=== PATIENT | male | born 1945 | race Caucasian/White ===

== ENCOUNTER → 2017-04-25 11:13 | Outpatient (CLI) | payer MEDICARE, SELFPAY ==
[2017-04-25 13:00] LABS: PSA,Total- Diagnostic 4.68 ng/mL (0.0-4.0)
== END ==
PROVIDERS: Family Provider Family Medicine; PCP Family Medicine; Visit Provider Urology
DX: N40.0 Benign prostatic hyperplasia without lower urinary tract symptoms (principal); R97.20 Elevated prostate specific antigen [PSA]
CPT/HCPCS: 36415; 84153

== ENCOUNTER → 2017-06-17 10:33 | Outpatient (CLI) | payer MEDICARE, SELFPAY ==
[2017-06-17 11:30] LABS: PSA,Total- Diagnostic 4.82 ng/mL (0.0-4.0)
== END ==
PROVIDERS: Family Provider Family Medicine; PCP Family Medicine; Visit Provider Urology
DX: R97.20 Elevated prostate specific antigen [PSA] (principal)
CPT/HCPCS: 36415; 84153

== ENCOUNTER → 2017-07-16 14:35 | Outpatient (CLI) | payer MEDICARE, SELFPAY ==
--- NOTE | 2017-07-16 | PROSBIL_PTH ---
PATIENT: RENY GILLESPIE V LOC: [facility] U#:[id number] AGE/SX: 79/M ROOM: RE07/16/[address]: Dr. Rao Pardo MD : 1945 BED: DIS: SPEC #: [id number] RECD: 07/16/17 14:57 STATUS: DILLON CALOS #: [id number] MARIBEL: 07/16/17 00:[address]: Rao Pardo DEPT: SURGICAL PATHOLOGY RECD BY: Isidro Vallecillo ENTERED: 07/16/17 14:58 SP TYPE: PROST BX RONALDO DR: Dr. Jean Cleaning DO Tissues: A - PROSTATE RIGHT B - PROSTATE RIGHT C - PROSTATE RIGHT D - PROSTATE LEFT E - PROSTATE LEFT F - PROSTATE LEFT Procedures: PROSTATE BX HEADER OPERATION: Prostate biopsy PRE-OP DIAGNOSIS: Elevated PSA TISSUE SUBMITTED: A - Right apex, B - Right mid, C - Right base, D - Left apex, E - Left mid, F - Left base MICROSCOPIC DIAGNOSIS A. Right prostate, apex, core biopsy: Focal atypical small acinar proliferation (FRANCISCO). Focal mild chronic inflammation. See comment. B. Right prostate, mid, core biopsy: Focal high-grade prostatic intraepithelial neoplasia (HGPIN). C. Right prostate, base, core biopsy: Prostatic tissue, negative for malignancy. See comment. D. Left prostate, apex, core biopsy: Prostatic tissue, negative for malignancy. Focal mild chronic inflammation and minimal acute inflammation. E. Left prostate, mid, core biopsy: Prostatic tissue, negative for malignancy. F. Left prostate, base, core biopsy: A minute focus of adenocarcinoma: [place] grade: 3+3=6 Number of cores involved: 1 out of 2 Proportion of tissue involved: ~1% Perineural invasion: Not identified. Greatest tumor length: <1 mm See comment. SJ:rg 07/17/17 COMMENT A, C & F - Immunohistochemistry ([id number]) supports the above diagnosis. Case has been reviewed in consultation with Dr. Ernst who concurs with the above diagnosis. IDC:AM MICROSCOPIC DESCRIPTION Slides are reviewed. GROSS DESCRIPTION A - Received is one container designated prostate, right apex. The specimen consists of three elongated fragments of light claros-white soft tissue measuring 0.5 to 1.5 cm in length and 0.1 cm in diameter. The specimen is totally submitted in one cassette. B - Received is one container designated prostate, right mid. The specimen consists of two elongated fragments of light claros-white soft tissue measuring 1 and 1.5 cm in length and 0.1 cm in diameter. The specimen is totally submitted in one cassette. C - Received is one container designated prostate, right base. The specimen consists of five elongated fragments of light claros-white soft tissue measuring 0.5 to 0.7 cm in length and 0.1 cm in diameter. The specimen is totally submitted in one cassette. D - Received is one container designated prostate, left apex. The specimen consists of two elongated fragments of light claros-white soft tissue measuring 1 and 1.5 cm in length and 0.1 cm in diameter. The specimen is totally submitted in one cassette. E - Received is one container designated prostate, left mid. The specimen consists of two elongated fragments of light claros-white soft tissue measuring 0.5 and 1.5 cm in length and 0.1 cm in diameter. The specimen is totally submitted in one cassette. F - Received is one container designated prostate, left base. The specimen consists of two elongated fragments of light claros-white soft tissue measuring 1 and 1.5 cm in length and 0.1 cm in diameter. The specimen is totally submitted in one cassette. / SJ:rg 07/16/17 TC:0 CPT: G0146
--- NOTE | 2017-07-16 | IMM_PTH ---
PATIENT: RENY GILLESPIE V LOC: [facility] U#:[id number] AGE/SX: 79/M ROOM: RE07/16/[address]: Dr. Rao Pardo MD : 1945 BED: DIS: SPEC #: [id number] RECD: 07/17/17 12:59 STATUS: DILLON RELanre #: [id number] MARIBEL: 07/16/17 00:[address]: Rao Pardo DEPT: IMMUNOHISTOCHEMISTRY RECD BY: Vesta Alan ENTERED: 07/17/17 13:00 SP TYPE: IMMUNO OTHR DR: Dr. Jean Cleaning DO Tissues: A - PROSTATE RIGHT C - PROSTATE RIGHT F - PROSTATE LEFT Procedures: 34BE12 (add) P40 (add) 34BE12 (initial) PHYSICIAN & INSTITUTION [place] [id number] SPECIMEN INFORMATION: Tissue Source: A - Right prostate apex, C - Right prostate base, F - Left prostate base Clinical Info: Elevated PSA Specimen Number: [id number] A, C & F CPT code: 78921, 07419 x5 METHODOLOGY: Deparaffinized sections of prefer/formalin-fixed tissue or PAP/DQ stained slides are incubated with monoclonal/polyclonal antibodies/oligonucleotide probes. Localization is made via biotin free immunoperoxidase method. Appropriate controls are performed and reacted as expected. Results on target cell population are indicated in the following table: RESULTS: ANTIBODY / CLONE RESULT Block A P40 (BC28) negative 34BE12 (34BE12) negative Block C P40 (BC28) positive 34BE12 (34BE12) positive Block F P40 (BC28) negative 34BE12 (34BE12) negative These tests were developed and their performance characteristics determined by [facility]. They may not have been cleared or approved by the U.S. Food and Drug Administration. The FDA has determined that such clearance or approval is not necessary. INTERPRETATION: A. Right prostate, apex, core biopsy: Focal atypical small acinar proliferation (FRANCISCO). C. Right prostate, base, core biopsy: Negative for adenocarcinoma. F. Left prostate, base, core biopsy: A minute focus of adenocarcinoma. SJ:eliz 07/18/17
== END ==
PROVIDERS: Family Provider Family Medicine; Visit Provider Urology
DX: R97.20 Elevated prostate specific antigen [PSA] (principal)
CPT/HCPCS: 88305; 88341; 88342; G0416

== ENCOUNTER → 2017-08-28 11:14 | Outpatient (CLI) | payer MEDICARE, SELFPAY ==
[2017-08-28 11:58] LABS: AST(SGOT) 20 U/L (15-37); Alanine Aminotransfer ALT/SGPT 24 U/L (16-61); Albumin, Serum 3.7 g/dL (3.2-5.0); Alkaline Phosphatase 96 U/L (45-117); Bilirubin, Direct 0.19 mg/dL (0.00-0.30); Cholesterol 122 mg/dL (200); Globulin 3.6 g/dL (2.2-4.2); High Density Lipoprotein 42 mg/dL; Protein, Total 7.3 g/dL (6.4-8.2); Triglycerides 115 mg/dL; Very Low Density Lipoprotein 23 mg/dL (5-40)
== END ==
PROVIDERS: Nurse Practitioner Family; Family Provider Family Medicine; PCP Family Medicine; Visit Provider Internal Medicine Cardiovascular Disease
DX: E78.5 Hyperlipidemia, unspecified (principal); Z79.899 Other long term (current) drug therapy
CPT/HCPCS: 36415; 80061; 80076

== ENCOUNTER → 2017-09-16 12:52 | Outpatient (CLI) | payer MEDICARE, SELFPAY ==
--- NOTE | 2017-09-16 12:55 | ECHOD_ITS ---
Procedure This was a 2D Doppler, Color Flow transthoracic echocardiogram. The study was technically difficult. Exam performed in department. Left Ventricle Normal size and thickness. The estimated ejection fraction is 65 %. Stage 1 diastolic dysfunction. No regional wall motion abnormalities noted. Right Ventricle Normal size and thickness. Normal systolic function. Atria Normal left atrium. Normal right atrium. Normal atrial septum. Mitral Valve The mitral valve is structurally normal. No prolapse or stenosis seen. Tricuspid Valve Normal tricuspid valve. Trivial tricuspid valve insufficiency. Right ventricular systolic pressure estimated to be 24 mmHg. Aortic Valve Trisinus/trileaflet aortic valve. Mild diffuse aortic valve thickening. Mild focal aortic valve thickening. Mild aortic stenosis. Peak aortic valve gradient 29 mmHg. Mean aortic valve gradient 17 mmHg. Trivial aortic valve insufficiency. Pulmonic Valve Normal pulmonic valve. Great Vessels Normal aortic root. Normal arch. Normal inferior vena cava. Inferior vena cava collapse with sniff. Pericardium/Pleural No pericardial effusion. Medication Definity0.4ml given slow IV push to enhance endocardial definition. MMode/2D Measurements & Calculations LVIDd: 4.8 cm IVSd: 0.93 cm LVOT diam: 2.2 cm LVIDs: 2.9 cm LVPWd: 0.95 cm LVOT area: 4.0 cm2 RVDd: 4.0 cm FS: 39.1 % Ao root diam: 3.4 cm LAV(MOD-bp): 37.3 ml EDV(MOD-sp4): 66.5 ml LAV(MOD-bp) Indexed: 18.2 ml/m2 ESV(MOD-sp4): 23.9 ml LAV(MOD-sp2): 46.1 ml EF(MOD-sp4): 64.1 % LAV(MOD-sp4): 28.3 ml SV(MOD-sp4): 42.6 ml LA A4 area: 13.6 cm2 RA A4 area: 13.5 cm2 Doppler Measurements & Calculations MV E max clyde: 45.4 cm/sec Lat Peak E' Clyde: 7.6 cm/sec Med Peak E' Clyde: 6.8 cm/sec MV A max clyde: 66.9 cm/sec E/E' lat: 6.0 E/E' med: 6.6 MV E/A: 0.68 Ao V2 max: 268.0 cm/sec AI max clyde: 266.8 cm/sec LV V1 max: 81.5 cm/sec Ao max P.7 mmHg AI max P.5 mmHg LV V1 max P.7 mmHg Ao V2 mean: 199.8 cm/sec AI dec slope: 111.3 cm/sec2 LV V1 mean P.5 mmHg Ao mean P.9 mmHg AI P1/2t: 702.5 msec LV V1 mean: 59.6 cm/sec Ao V2 VTI: 52.0 cm LV V1 VTI: 17.7 cm YANI(I,D): 1.4 cm2 YANI(V,D): 1.2 cm2 SV(LVOT): 70.3 ml PA V2 max: 74.1 cm/sec TR max clyde: 219.5 cm/sec TR max P.3 mmHg Interpretation Summary The estimated ejection fraction is 65 %. Stage 1 diastolic dysfunction. Trivial tricuspid valve insufficiency. Right ventricular systolic pressure estimated to be 24 mmHg. Trivial aortic valve insufficiency. Mild aortic stenosis. Compared to echo report dated 04/16/2015, no appreciable changes noted. The study was technically difficult. Contrast injection was performed. Ordering Physician: Amrik Maurice Referring Physician: Jean Cleaning Performed By: Marylu Nails, VIKTOR, RVT
== END ==
PROVIDERS: Family Provider Family Medicine; PCP Family Medicine; Visit Provider Internal Medicine Cardiovascular Disease
DX: I35.0 Nonrheumatic aortic (valve) stenosis (principal)
CPT/HCPCS: 93306; Q9957; A4216; C8929

== ENCOUNTER → 2017-12-03 14:26 | Outpatient (CLI) | payer MEDICARE, SELFPAY ==
[2017-12-03 15:22] LABS: PSA,Total- Diagnostic 3.28 ng/mL (0.0-4.0)
== END ==
PROVIDERS: Family Provider Family Medicine; PCP Family Medicine; Visit Provider Urology
DX: C61 Malignant neoplasm of prostate (principal); R97.20 Elevated prostate specific antigen [PSA]
CPT/HCPCS: 36415; 84153

== ENCOUNTER → 2018-04-10 11:18 | Outpatient (CLI) | payer MEDICARE, SELFPAY ==
[2018-04-10 13:18] LABS: AST(SGOT) 21 U/L (15-37); Alanine Aminotransfer ALT/SGPT 29 U/L (16-61); Albumin, Serum 3.8 g/dL (3.2-5.0); Alkaline Phosphatase 86 U/L (45-117); Bilirubin, Direct 0.21 mg/dL (0.00-0.30); Cholesterol 130 mg/dL (200); Globulin 3.2 g/dL (2.2-4.2); High Density Lipoprotein 44 mg/dL; Triglycerides 100 mg/dL; Very Low Density Lipoprotein 20 mg/dL (5-40)
== END ==
PROVIDERS: Family Provider Family Medicine; PCP Family Medicine; Referring Provider Nurse Practitioner Family; Visit Provider Nurse Practitioner Family
DX: E78.5 Hyperlipidemia, unspecified (principal)
CPT/HCPCS: 36415; 80061; 80076

== ENCOUNTER → 2018-06-10 14:37 | Outpatient (CLI) | payer MEDICARE, SELFPAY ==
[2018-04-14 15:24] VITALS: BMI 31.4
[2018-06-10 16:11] LABS: PSA,Total- Diagnostic 2.94 ng/mL (0.0-4.0)
== END ==
PROVIDERS: Family Provider Family Medicine; PCP Family Medicine; Referring Provider Urology; Visit Provider Urology
DX: C61 Malignant neoplasm of prostate (principal)
CPT/HCPCS: 36415; 84153

== ENCOUNTER → 2018-06-19 14:38 | Outpatient (CLI) | payer MEDICARE, SELFPAY ==
[2018-06-19 13:23] VITALS: BMI 30.4
--- NOTE | 2018-06-19 14:42 | RAD_ITS ---
STUDY: X-RAY CHEST REASON FOR EXAM: Male, 72 years old. SOBSShort of Breath/DyspneaS TECHNIQUE: Frontal and lateral views of the chest. COMPARISON: None. FINDINGS: There are interstitial fibrotic changes of the lungs. Calcified granuloma is seen in the posterior segment of right lung upper lobe measures 8mm. There is no demonstrated pleural abnormality. Normal size heart. Normal mediastinum and nora. Normal visualized pulmonary arteries. Normal visualized aortic arch and descending thoracic aorta. Normal visualized thoracic spine. There is degenerative osteoarthritis of the bilateral shoulders. There is no demonstrated abnormality of the visualized soft tissue structures of the upper abdomen. RAD/Chest PA and Lateral IMPRESSION: Degenerative changes, as described above. No demonstrated acute cardiopulmonary process. Electronically Signed: Yohana Edwards, at 14:26 EDT Tel , Service support ,
[2018-06-19 16:14] LABS: Absolute Lymphocyte Count 1.83 X10^3/ul (0.83-4.51); Absolute Neutrophil Count 3.6 X10^3/uL (2.0-7.7); Basophil# 0.01 X10^3/uL; Basophil% 0.2 % (0-1); Eosinophils% 1.6 % (0-5); Hematocrit 46.2 % (40-54); Hemoglobin 14.7 g/dl (13.0-16.5); Lymphocyte # 1.83 X10^3/ul (4.0); Mean Corp Hgb Conc 31.8 g/gl (32-36); Mean Corpuscular Hgb 30.9 pg (27.0-32.0); Mean Corpuscular Volume 97.3 fL (80-94); Mean Platelet Vol. 11.7 fl (6.2-12.0); Monocyte# 0.56 X10^3/uL; Monocyte% 9.2 % (0-10); Neutrophil # 3.58 X10^3/uL (2.7-7.7); Neutrophil % 58.8 % (47-70); Platelet Count 118 K/mm3 (150-450); RBC Distribution Width CV 13.4 % (11.6-14.6); RBC Distribution Width SD 46.7 fl (35.1-43.9); Red Blood Count 4.75 M/mm3 (4.6-6.2); White Blood Count 6.1 K/mm3 (4.4-11.0)
[2018-06-19 16:16] LABS: POSITIVE COUNT NO; POSITIVE DIFFERENTIAL NO; POSITIVE MORPHOLOGY NO
[2018-06-19 16:27] LABS: Prothrombin Time (Protime)PT. 12.7 SECONDS (11.7-14.9)
[2018-06-19 16:39] LABS: Anion Gap 5 (5-15); BUN 19 mg/dL (7-18); BUN/Creat Ratio 18.3 RATIO (10-20); Calcium,Total 8.8 mg/dL (8.5-10.1); Chloride 103 mmol/L (98-107); Creatinine, Serum 1.04 mg/dL (0.70-1.30); EST Glomerular Filtration Rate 74 mL/min (>60); Est Glom Filt Rate - Afr Amer 90 mL/min (>60); Glucose 104 mg/dL (74-106); Potassium 3.9 mmol/L (3.5-5.1); Sodium Level 140 mmol/L (136-145)
== END ==
PROVIDERS: Family Provider Family Medicine; PCP Family Medicine; Referring Provider Internal Medicine Cardiovascular Disease; Visit Provider Internal Medicine Cardiovascular Disease
DX: I25.10 Atherosclerotic heart disease of native coronary artery without angina pectoris (principal); I35.0 Nonrheumatic aortic (valve) stenosis; I10 Essential (primary) hypertension; Z95.5 Presence of coronary angioplasty implant and graft
CPT/HCPCS: 36415; 71046; 80048; 85025; 85610

== ENCOUNTER → 2018-07-01 12:24 | Outpatient (CLI) | payer MEDICARE, SELFPAY ==
[2018-06-19 13:23] VITALS: BMI 30.4
--- NOTE | 2018-07-01 15:19 | PFTCOMP_ITS ---
COMPLETE PULMONARY FUNCTION TEST INTERPRETATION Brief HPI: Patient is a 72 year old male, currently under the care of Dr. Maurice, who presents to [facility] for complete pulmonary function tests secondary to diagnosis of dyspnea. Respiratory therapist reports good effort and reproducible results. Interpretation: Forced expiration spirometry shows a moderately-severe large airways obstructive ventilatory defect with an FEV1 of 58% predicted. There is no significant bronchodilator response by strict ATS criteria. Spirograms are of good quality and plateau slowly, indicating slowly emptying areas of the lungs. The respiratory flow volume loop shows decreased expiratory flow rates at all lung volumes consistent with airway obstruction. Lung volumes by body plethysmography show a decreased total lung capacity at 5.09 L, 82% predicted. All other lung volumes are reduced symmetrically. Diffusion capacity by carbon monoxide is normal at 74% predicted. The airway resistance is elevated. No previous pulmonary function tests were available for review. Impression: Moderately severe mixed ventilatory defect with no significant response to bronchodilators and relatively preserved diffusion capacity.
== END ==
PROVIDERS: Family Provider Family Medicine; PCP Family Medicine; Referring Provider Internal Medicine Cardiovascular Disease; Visit Provider Internal Medicine Cardiovascular Disease
DX: R06.00 Dyspnea, unspecified (principal)
CPT/HCPCS: 94060; 94726; 94729

== ENCOUNTER 2018-07-03 08:17 | Day surgery (SDC) | payer MEDICARE, SELFPAY ==
[2018-06-19 13:23] VITALS: BMI 30.4
[2018-07-02 08:36] VITALS: BMI 30.4
[2018-07-03 10:51] LABS: Blood Gas Specimen Type VEN; VBG BASE EXCESS 1 mmol/L (-1.0-3.5); VBG Bicarbonate 26 mmol/L (22-26); VBG Oxygen Content 28 mmol/L (23-33); VBG PO2 38 mmHg (25-40); VBG SO2 68 % (50-70); VBG pCO2 47.2 mmHg (41-51); VBG pH 7.35 (7.32-7.42)
[2018-07-03 10:51] LABS: Blood Gas Specimen Type VEN; VBG BASE EXCESS 0 mmol/L (-1.0-3.5); VBG Bicarbonate 26 mmol/L (22-26); VBG Oxygen Content 27 mmol/L (23-33); VBG PO2 36 mmHg (25-40); VBG SO2 66 % (50-70); VBG pCO2 46.4 mmHg (41-51); VBG pH 7.35 (7.32-7.42)
[2018-07-03 10:51] LABS: Base Excess -4 mmol/L (-2 to +2); Bicarbonate 22.4 mmol/L (22-26); Blood Gas Specimen Type ART; PO2 85 mmHG (75-100); SO2 95 % (95-99); Total Carbon Dioxide 24 mmol/L; pCO2 44.7 mmHg (35-45); pH 7.31 (7.35-7.45)
--- NOTE | 2018-07-03 10:57 | CL.D_ITS ---
Patient Name: RENY GILLESPIE V Study Date: 07/03/2018 Performing: Amrik Maurice MD Ht: 68.89 inches 175 cm : 1945 Wt: 205.03 lbs 93 kg Age: 72 Gender: male BSA: 2.09 PROCEDURE(S) PERFORMED NG00-KZF/LHC/COR/LV CLINICAL PROFILE AND INDICATIONS Indications: Stable Known CAD, LV Dysfunction Heart Failure: NYHA Class: 2, Newly Diagnosed: No, Heart Failure Type: Systolic Stress/Imaging Stress/Image Study Performed: No Angina Classification Anginal Classification w/in 2 Weeks: No symptoms CAD Presentations: Other: Worsening dyspnea on exertion Comorbidities/Risk Factors: Hypertension Dyslipidemia Prior CHF Chronic Lung Disease CONCLUSIONS Segmented LV systolic dysfunction- Mild LVEF: by LV gram 55 % Elevated Left Ventricular End Diastolic Pressure Non obstructive coronary arteries Single vessel CAD of the mid RCA (occluded) The patient has normal pulmonary hemodynamics. RECOMMENDATIONS Risk factor modification ASA Indefinitely Management as per referring Obstetrics Technician Await PFTS; LM does not appear to have significant enough stenosis to warrant FFR or IVUS, let alone CABG. DESCRIPTION OF PROCEDURE The patient arrived to the procedure lab. The risks and benefits of the procedure as well as a full d escription of our services here and current unavailability of surgical backup were fully explained to the patient and/or their significant other prior to the catheterization. The Timeout was completed, verifying the correct patient and procedure. The patient's procedural site was prepped and draped in the usual fashion. Local anesthetic was given subcutaneously to right groin region with Lidocaine 2%. Using a modified Seldinger technique, arterial access was obtained via the right femoral artery, a 4 Fr sheath was inserted Venous access was obtained via the right femoral vein, a 7Fr sheath was insert ed. A 7Fr thermal dilution catheter was inserted and right heart pressures were recorded, it was then advanced to PA position for cardiac outputs. Thermal dilution cardiac outputs were then recorded. O2 saturations were then obtained. Left Ventriculography was performed in [place] projection using a 4 Fr. Pigtail catheter. LV to AO pullback pressures were then recorded. Simultaneous pressure s were then recorded. The Thermal dilution catheter was then removed. Left Coronary Artery selective angiography was performed in multiple views using a 4 Fr. JL5 catheter. Right Coronary Artery selecti ve angiography was then performed in multiple views using a 4 Fr. 3DRC catheter.The arterial sheath w as pulled and manual compression applied until hemostasis is achieved. CORONARY ANGIOGRAPHY DOMINANCE: Co- Dominant LEFT HEART ASSESSMENT Left Ventricular Ejection Fraction: by LV Gram 55 % Inferior Basal Hypokinesis - Mild Depressed Left Ventricular systolic function LVEDP: 14 mmHg Elevated Left Ventricular End Diastolic Pressure RIGHT HEART ASSESSMENT Thermal CO: 6.08 Thermal CI: 2.91 PW: 7/7 7 PA: 19 RV: 26/3 7 RA: 6/5 4 PVR: 158 SVR: 1053 Right Heart pressures - normal LEFT MAIN: Moderate ectasia, distal 30%. LEFT ANTERIOR DECENDING ARTERY: PROX LAD: Mild luminal irregularities less than 30% MID LAD: Moderate luminal irregularities up to 50% CIRCUMFLEX ARTERY: Mild luminal irregularities less than 30% PROX CIRC: Moderate calcification RIGHT CORONARY ARTERY: MID RCA: is occluded COLLATERAL FLOW: Collateral flow from Left to Right COMPLICATIONS No Complications PROCEDURE MEDICATIONS Oxygen: 2 L/min via nasal cannula Benadryl 25 mg IV @ 07/03/2018 10:01:14 Solu-cortef 100 mg IV 07/03/2018 10:00:59 SUMMARY OF HEMODYNAMIC DATA Time AIR REST ECG 08:33:21 RA 6/5 (4) SV 10:21:18 RV 26/3, 7 10:21:31 PA (19) PA 10:25:37 PW / (7) PV 10:25:53 LV 135/-9, 15 10:35:40 LV 136/-7, 14 10:35:46 LV 134/-8, 15 10:36:42 PW 19/23 (21) 10:36:42 LV 133/-8, 15 10:36:52 PW 18/10 (13) 10:36:52 LV 131/-5, 17 10:37:20 RV 30/5, 10 10:37:20 LV 130/-5, 16 10:37:27 RV 30/5, 10 10:37:27 LV 132/-5, 17 10:38:55 LVp 139/-8, 15 10:39:01 AOp 121/61 (84) 10:39:06 AO 105/66 (84) SA 10:40:33 Type SV CO (l/m) CI (l/m/ HR Time AIR REST Thermal 81.10 6.08 2.91 75 08:33:21 Label % O2 Pres/Loc Time AIR REST PA 67 PA 10:45:12 AO 95 PV 10:45:16 Signed By Amrik Maurice MD On 07/03/2018 10:56:22 Amrik Maurice MD
== END 2018-07-03 15:32 | disposition home or self-care (01) ==
LOC: CLSP 08:18
PROVIDERS: Family Provider Family Medicine; PCP Family Medicine; Referring Provider Internal Medicine Cardiovascular Disease; Visit Provider Internal Medicine Cardiovascular Disease
DX: I25.10 Atherosclerotic heart disease of native coronary artery without angina pectoris (principal); I25.82 Chronic total occlusion of coronary artery; I35.0 Nonrheumatic aortic (valve) stenosis; I10 Essential (primary) hypertension; E78.5 Hyperlipidemia, unspecified; C61 Malignant neoplasm of prostate; K21.9 Gastro-esophageal reflux disease without esophagitis; Z79.02 Long term (current) use of antithrombotics/antiplatelets; Z79.82 Long term (current) use of aspirin; Z79.899 Other long term (current) drug therapy; I25.2 Old myocardial infarction; Z87.442 Personal history of urinary calculi; Z95.1 Presence of aortocoronary bypass graft; Z95.5 Presence of coronary angioplasty implant and graft; Z87.891 Personal history of nicotine dependence
CPT/HCPCS: 82803; 93460; J7040; Q9967; C1751; C1769; C1894

== ENCOUNTER → 2018-09-26 08:27 | Outpatient (CLI) | payer MEDICARE, SELFPAY ==
[2018-09-22 10:11] VITALS: BMI 30.8
[2018-09-26 09:15] VITALS: PULSE 68; PULSE 69; PULSE 83; PULSE 86; PULSE 90; PULSE 93; O2SAT 89; O2SAT 90; O2SAT 91; O2SAT 92; O2SAT 93; O2SAT 95
--- NOTE | 2018-09-26 10:31 | PCM.PSN.6M ---
PSN 6 Minute Walk Test - 6 Minute Walk Test 6 Minute Walk Test: 6 Minute Walk Test PSN:6-Minute Walk Test Start: 09/26/18 09:15 Freq: Status: Active Protocol: RESP.6MINW Document 09/26/18 09:15 [facility] (Rec: 09/26/18 09:21 [facility] [id number]) 6 Minute Walk Test Date Performed 09/26/18 Time Performed 09:00 Height 5 ft 8 in Weight: 94.347 kg Weight in Pounds 208.[address]: Jerry Miller Assistive device used: None 1st minute Oxygen Delivery Method Room Air Pulse Ox (%) 93 Pulse Rate (60-100 beats/min) 69 Dyspnea Jm Scale (0-10) 1 2nd minute Oxygen Delivery Method Room Air Pulse Ox (%) 92 Pulse Rate (60-100 beats/min) 83 Dyspnea Jm Scale (0-10) 2 Reported Symptoms Increased Work of Breathing 3rd minute Oxygen Delivery Method Room Air Pulse Ox (%) 89 Pulse Rate (60-100 beats/min) 86 Dyspnea Jm Scale (0-10) 4 Number of Rests Taken 1 Reported Symptoms Increased Work of Breathing 4th minute Oxygen Delivery Method Room Air Pulse Ox (%) 91 Pulse Rate (60-100 beats/min) 86 Dyspnea Jm Scale (0-10) 3 Reported Symptoms Increased Work of Breathing 5th minute Oxygen Delivery Method Room Air Pulse Ox (%) 92 Pulse Rate (60-100 beats/min) 90 Dyspnea Jm Scale (0-10) 3 Reported Symptoms Increased Work of Breathing 6th minute Oxygen Delivery Method Room Air Pulse Ox (%) 90 Pulse Rate (60-100 beats/min) 93 Dyspnea Jm Scale (0-10) 4 Reported Symptoms Increased Work of Breathing Post-test Oxygen Delivery Method Room Air Pulse Ox (%) 95 Pulse Rate (60-100 beats/min) 68 Dyspnea Jm Scale (0-10) 1 Full Laps Walked 13 Partial Lap, Number of Tiles Walked 47 Total Distance Walked (ft) 814 - Interpretation Interpretation: The patient was able to ambulate 814 feet over the course of 6 minutes on room air with no assistive devices, but one break. The patient was noted to have significant desaturation from a baseline of 95% to as low as 89% with ambulation. These findings are consistent with a respiratory limitation exercise tolerance. - Recommendations Recommendations: No supplemental oxygen is indicated at this time. However, patient will need to be followed closely given level of desaturations.
== END ==
PROVIDERS: Family Provider Family Medicine; PCP Family Medicine; Referring Provider Internal Medicine Critical Care Medicine; Visit Provider Internal Medicine Critical Care Medicine
DX: J98.4 Other disorders of lung (principal)
CPT/HCPCS: 94618

== ENCOUNTER → 2018-11-27 09:37 | Outpatient (CLI) | payer MEDICARE, SELFPAY ==
[2018-10-31 14:46] VITALS: BMI 31.7
--- NOTE | 2018-11-27 09:43 | ECHOCS_ITS ---
Reason For Study: CHF Procedure This was a 2D Doppler, Color Flow transthoracic echocardiogram. The study was technically difficult. Exam performed in department. Left Ventricle Mild concentric left ventricular hypertrophy. The estimated ejection fraction is 65 %. Stage 1 diastolic dysfunction. No regional wall motion abnormalities noted. Right Ventricle Normal size and thickness. Normal systolic function. Atria Normal left atrium. Normal right atrium. Normal atrial septum. Mitral Valve The mitral valve is structurally normal. No prolapse or stenosis seen. Trivial mitral valve insufficiency. Tricuspid Valve Normal tricuspid valve. Unable to estimate RV systolic pressure due to insufficient tricuspid regurgitant envelope. Aortic Valve Trisinus/trileaflet aortic valve. Moderate focal aortic valve thickening. Moderate restriction of the aortic valve. Mild to moderate aortic stenosis. Peak aortic valve gradient 30 mmHg. Mean aortic valve gradient 17 mmHg. Calculated aortic valve area (continuity equation) is 1.3 cm2. Mild (1+) aortic valve insufficiency. Pulmonic Valve The pulmonic valve is not well visualized. Great Vessels Normal aortic root. Normal arch. Normal inferior vena cava. Inferior vena cava collapse with sniff. Pericardium/Pleural No pericardial effusion. Medication 22 gauge I.V. with prn adaptor inserted into right arm. Diluted definity 3ml given slow IV push to enhance endocardial definition. MMode/2D Measurements & Calculations LVIDd: 4.8 cm IVSd: 1.1 cm LVOT diam: 2.2 cm LVIDs: 2.9 cm LVPWd: 1.3 cm RVDd: 3.0 cm FS: 39.5 % LVOT area: 3.8 cm2 Ao root diam: 3.6 cm LAV(MOD-bp): 41.5 ml LA A4 area: 13.8 cm2 LAV(MOD-bp) Indexed: 19.7 ml/m2 LAV(MOD-sp2): 52.7 ml LAV(MOD-sp4): 32.1 ml LA dimension(2D): 3.6 cm RA A4 area: 14.4 cm2 Doppler Measurements & Calculations MV E max clyde: 51.8 cm/sec Lat Peak E' Clyde: 7.4 cm/sec Med Peak E' Clyde: 5.0 cm/sec MV A max clyde: 65.2 cm/sec E/E' lat: 7.0 E/E' med: 10.3 MV E/A: 0.79 Ao V2 max: 274.7 cm/sec AI max clyde: 314.7 cm/sec LV V1 max: 88.7 cm/sec Ao max P.2 mmHg AI max P.7 mmHg LV V1 max P.1 mmHg Ao V2 mean: 198.2 cm/sec AI dec slope: 133.6 cm/sec2 LV V1 mean P.8 mmHg Ao mean P.2 mmHg AI P1/2t: 689.8 msec LV V1 mean: 63.4 cm/sec Ao V2 VTI: 60.7 cm LV V1 VTI: 20.0 cm YANI(I,D): 1.3 cm2 YANI(V,D): 1.2 cm2 SV(LVOT): 77.0 ml PA V2 max: 86.5 cm/sec Interpretation Summary The estimated ejection fraction is 65 %. Stage 1 diastolic dysfunction. Trivial mitral valve insufficiency. Unable to estimate RV systolic pressure due to insufficient tricuspid regurgitant envelope. Mild to moderate aortic stenosis. Mild (1+) aortic valve insufficiency. Compared to echo report dated 09/06/2017, no appreciable changes noted to aortic stenosis or LV function. The study was technically difficult. Contrast injection was performed. Ordering Physician: Amrik Maurice Referring Physician: Jean Cleaning Performed By: Jazmin Tabares RDCS
== END ==
PROVIDERS: Family Provider Family Medicine; PCP Family Medicine; Referring Provider Internal Medicine Cardiovascular Disease; Visit Provider Internal Medicine Cardiovascular Disease
DX: I25.10 Atherosclerotic heart disease of native coronary artery without angina pectoris (principal); I50.9 Heart failure, unspecified
CPT/HCPCS: 93306; Q9957; A4216; C8929

== ENCOUNTER → 2019-05-18 14:04 | Outpatient (CLI) | payer MEDICARE, SELFPAY ==
[2019-05-14 14:27] VITALS: BMI 31.9
[2019-05-18 16:03] LABS: AST(SGOT) 22 U/L (15-37); Alanine Aminotransfer ALT/SGPT 31 U/L (16-61); Albumin, Serum 3.8 g/dL (3.2-5.0); Alkaline Phosphatase 90 U/L (45-117); Bilirubin, Direct 0.24 mg/dL (0.00-0.30); Cholesterol 133 mg/dL (200); Globulin 3.7 g/dL (2.2-4.2); High Density Lipoprotein 42 mg/dL; Protein, Total 7.5 g/dL (6.4-8.2); Triglycerides 124 mg/dL; Very Low Density Lipoprotein 25 mg/dL (5-40)
== END ==
PROVIDERS: PCP Family Medicine; Referring Provider Internal Medicine Cardiovascular Disease; Visit Provider Internal Medicine Cardiovascular Disease
DX: E78.5 Hyperlipidemia, unspecified (principal); I25.10 Atherosclerotic heart disease of native coronary artery without angina pectoris
CPT/HCPCS: 36415; 80061; 80076

== ENCOUNTER → 2019-06-16 13:43 | Outpatient (CLI) | payer MEDICARE, SELFPAY ==
[2019-05-14 14:27] VITALS: BMI 31.9
[2019-06-16 15:20] LABS: PSA,Total- Diagnostic 2.03 ng/mL (0.0-4.0)
== END ==
PROVIDERS: PCP Family Medicine; Referring Provider Urology; Visit Provider Urology
DX: C61 Malignant neoplasm of prostate (principal)
CPT/HCPCS: 36415; 84153

== ENCOUNTER → 2019-11-16 | Outpatient (CLI) | payer MEDICARE, SELFPAY ==
[2019-05-14 14:27] VITALS: BMI 31.9
[2019-11-16 12:43] VITALS: PULSE 103; PULSE 106; PULSE 107; PULSE 112; PULSE 68; PULSE 70; PULSE 97; O2SAT 89; O2SAT 90; O2SAT 92; O2SAT 93; O2SAT 94
--- NOTE | 2019-11-16 15:11 | PCM.PSN.6M ---
PSN 6 Minute Walk Test - 6 Minute Walk Test 6 Minute Walk Test: 6 Minute Walk Test PSN:6-Minute Walk Test Start: 11/16/19 12:43 Freq: Status: Active Protocol: RESP.6MINW Document 11/16/19 12:43 [facility] (Rec: 11/16/19 12:45 [facility] [id number]) 6 Minute Walk Test Date Performed 11/16/19 Time Performed 12:30 Height 5 ft 9 in Weight: 95.254 kg Weight in Pounds 210.[address]: Jerry Miller Assistive device used: None Pre-test Oxygen Delivery Method Room Air Pulse Ox (%) 94 Pulse Rate (60-100 beats/min) 68 Dyspnea Jm Scale (0-10) 0 Exertion Jm Scale (6-20) 6 1st minute Oxygen Delivery Method Room Air Pulse Ox (%) 93 Pulse Rate (60-100 beats/min) 97 2nd minute Oxygen Delivery Method Room Air Pulse Ox (%) 92 Pulse Rate (60-100 beats/min) 103 H 3rd minute Oxygen Delivery Method Room Air Pulse Ox (%) 90 Pulse Rate (60-100 beats/min) 107 H 4th minute Oxygen Delivery Method Room Air Pulse Ox (%) 89 Pulse Rate (60-100 beats/min) 107 H 5th minute Oxygen Delivery Method Room Air Pulse Ox (%) 89 Pulse Rate (60-100 beats/min) 106 H 6th minute Oxygen Delivery Method Room Air Pulse Ox (%) 89 Pulse Rate (60-100 beats/min) 112 H Dyspnea Jm Scale (0-10) 3 Exertion Jm Scale (6-20) 13 Post-test Oxygen Delivery Method Room Air Pulse Ox (%) 94 Pulse Rate (60-100 beats/min) 70 Full Laps Walked 14 Partial Lap, Number of Tiles Walked 20 Total Distance Walked (ft) 846 - Interpretation Interpretation: The patient was able to ambulate 846 feet over the course of 6 minutes on room air with no assistive devices or breaks. The patient did desaturate as low as 89% and had an element of reflexive tachycardia with a peak heart rate of 112 bpm. These findings are consistent with a respiratory limitation exercise tolerance. - Recommendations Recommendations: No supplemental oxygen is indicated at this time. However, patient will need to be followed closely given level of desaturation.
== END | disposition home or self-care (01) ==
LOC: PSN 12:10
PROVIDERS: PCP Family Medicine; Referring Provider Internal Medicine Critical Care Medicine; Visit Provider Internal Medicine Critical Care Medicine
DX: R94.2 Abnormal results of pulmonary function studies (principal)
CPT/HCPCS: 94618

== ENCOUNTER → 2019-11-17 12:23 | Outpatient (CLI) | payer MEDICARE, SELFPAY ==
[2019-05-14 14:27] VITALS: BMI 31.9
[2019-11-17 13:54] LABS: AST(SGOT) 20 U/L (15-37); Alanine Aminotransfer ALT/SGPT 26 U/L (16-61); Albumin, Serum 3.6 g/dL (3.2-5.0); Alkaline Phosphatase 93 U/L (45-117); Cholesterol 122 mg/dL (200); Globulin 3.7 g/dL (2.2-4.2); High Density Lipoprotein 37 mg/dL; Protein, Total 7.3 g/dL (6.4-8.2); Triglycerides 115 mg/dL; Very Low Density Lipoprotein 23 mg/dL (5-40)
== END ==
PROVIDERS: PCP Family Medicine; Referring Provider Internal Medicine Cardiovascular Disease; Visit Provider Internal Medicine Cardiovascular Disease
DX: E78.00 Pure hypercholesterolemia, unspecified (principal); E78.5 Hyperlipidemia, unspecified
CPT/HCPCS: 36415; 80061; 80076

== ENCOUNTER → 2019-12-18 13:09 | Outpatient (CLI) | payer MEDICARE, SELFPAY ==
[2019-11-26 12:24] VITALS: BMI 31.6
[2019-12-18 14:03] LABS: PSA,Total- Diagnostic 1.99 ng/mL (0.0-4.0)
== END ==
PROVIDERS: PCP Family Medicine; Referring Provider Urology; Visit Provider Urology
DX: C61 Malignant neoplasm of prostate (principal)
CPT/HCPCS: 36415; 84153

== ENCOUNTER → 2020-06-02 12:34 | Outpatient (CLI) | payer MEDICARE, SELFPAY ==
[2020-05-24 14:36] VITALS: BMI 32.1
--- NOTE | 2020-06-02 12:36 | ECHOCS_ITS ---
Reason For Study: AO V DISEASE Procedure This was a 2D Doppler, Color Flow transthoracic echocardiogram. The exam was of poor technical quality due to body habitus. The study was technically difficult. Contrast injection was performed. Exam performed in department. Left Ventricle Based upon the 2D echocardiographic and contrast enhanced images obtained there appears to be grossly normal left ventricular size, wall motion, and systolic function. The estimated ejection fraction is 55 %. No evidence for diastolic dysfunction. Right Ventricle Normal RV size. Normal systolic function. Atria Normal left atrium. Normal right atrium. No doppler evidence for ASD. Mitral Valve There is no mitral annular calcification. Normal mitral valve. Trivial mitral valve insufficiency. Tricuspid Valve Normal tricuspid valve. Trivial tricuspid valve insufficiency. Unable to estimate RV systolic pressure/pulmonary artery pressure due to technically difficult study. Aortic Valve Trisinus/trileaflet aortic valve. Mild diffuse aortic valve thickening. Mild diffuse aortic valve calcification. Mild to moderate aortic stenosis. Pulmonic Valve The pulmonic valve is not well visualized. Trivial pulmonic valve insufficiency. Great Vessels Normal sized aortic root. Pericardium/Pleural No pericardial effusion. Medication 22 gauge I.V. with prn adaptor inserted into right arm. Diluted definity 9.0ml given slow IV push to enhance endocardial definition. MMode/2D Measurements & Calculations LVIDd: 4.7 cm IVSd: 1.2 cm LVOT diam: 2.2 cm LVIDs: 3.6 cm LVPWd: 1.2 cm RVDd: 3.4 cm FS: 24.1 % LVOT area: 3.8 cm2 Ao root diam: 3.7 cm LAV(MOD-bp): 53.1 ml LA A4 area: 17.6 cm2 LAV(MOD-bp) Indexed: 24.8 ml/m2 LAV(MOD-sp2): 48.5 ml LAV(MOD-sp4): 48.0 ml LA dimension(2D): 3.2 cm RA A4 area: 12.8 cm2 Time Measurements MV dec time: 0.38 sec Doppler Measurements & Calculations MV E max clyde: 42.0 cm/sec Lat Peak E' Clyde: 7.4 cm/sec Med Peak E' Clyde: 5.0 cm/sec MV A max clyde: 67.3 cm/sec E/E' lat: 5.7 E/E' med: 8.4 MV E/A: 0.62 Ao V2 max: 266.2 cm/sec LV V1 max: 71.8 cm/sec SV(LVOT): 62.0 ml Ao max P.4 mmHg LV V1 max P.1 mmHg Ao V2 mean: 197.7 cm/sec LV V1 mean P.2 mmHg Ao mean P.4 mmHg LV V1 mean: 51.0 cm/sec Ao V2 VTI: 53.2 cm LV V1 VTI: 16.4 cm YANI(I,D): 1.2 cm2 YANI(V,D): 1.0 cm2 PA V2 max: 74.9 cm/sec Interpretation Summary The study was technically difficult. Contrast injection was performed. Based upon the 2D echocardiographic and contrast enhanced images obtained there appears to be grossly normal left ventricular size, wall motion, and systolic function. The estimated ejection fraction is 55 %. Trivial mitral valve insufficiency. Trivial tricuspid valve insufficiency. Mild to moderate aortic stenosis. Trivial pulmonic valve insufficiency. Unable to estimate RV systolic pressure/pulmonary artery pressure due to technically difficult study. No evidence for diastolic dysfunction. Ordering Physician: Phu Nails Referring Physician: SAUL FALCON Performed By: Dea Snow, VIKTOR, RVT
== END ==
PROVIDERS: PCP Family Medicine; Visit Provider Nurse Practitioner Family
DX: I35.0 Nonrheumatic aortic (valve) stenosis (principal)
CPT/HCPCS: 93306; Q9957; A4216; C8929

== ENCOUNTER → 2020-06-06 14:18 | Outpatient (CLI) | payer MEDICARE, SELFPAY ==
[2020-05-24 14:36] VITALS: BMI 32.1
[2020-06-06 15:30] LABS: BNP,B-Type NATRIURETIC PEPTIDE 199.4 pg/mL (0-100)
[2020-06-06 15:33] LABS: AST(SGOT) 19 U/L (15-37); Alanine Aminotransfer ALT/SGPT 27 U/L (16-61); Albumin, Serum 3.6 g/dL (3.2-5.0); Alkaline Phosphatase 86 U/L (45-117); Anion Gap 4 (5-15); BUN 20 mg/dL (7-18); BUN/Creat Ratio 15.9 RATIO (10-20); Bilirubin, Direct 0.16 mg/dL (0.00-0.30); Calcium,Total 8.6 mg/dL (8.5-10.1); Chloride 105 mmol/L (98-107); Cholesterol 126 mg/dL (200); Creatinine, Serum 1.26 mg/dL (0.70-1.30); EST Glomerular Filtration Rate 59 mL/min (>60); Est Glom Filt Rate - Afr Amer 72 mL/min (>60); Globulin 3.2 g/dL (2.2-4.2); Glucose 118 mg/dL (74-106); High Density Lipoprotein 41 mg/dL; Potassium 4.7 mmol/L (3.5-5.1); Protein, Total 6.8 g/dL (6.4-8.2); Sodium Level 139 mmol/L (136-145); Triglycerides 134 mg/dL; Very Low Density Lipoprotein 27 mg/dL (5-40)
== END ==
PROVIDERS: PCP Family Medicine; Referring Provider Nurse Practitioner Family; Visit Provider Nurse Practitioner Family
DX: R06.00 Dyspnea, unspecified (principal); I25.10 Atherosclerotic heart disease of native coronary artery without angina pectoris; E78.5 Hyperlipidemia, unspecified; Z95.5 Presence of coronary angioplasty implant and graft; Z79.899 Other long term (current) drug therapy
CPT/HCPCS: 36415; 80048; 80061; 80076; 83880

== ENCOUNTER → 2020-09-13 13:26 | Outpatient (CLI) | payer MEDICARE, SELFPAY ==
[2020-04-19 10:35] VITALS: BMI 32.8
[2020-05-24 14:36] VITALS: BMI 32.1
[2020-09-13 13:45] VITALS: PULSE 71; PULSE 77; PULSE 81; PULSE 88; PULSE 89; PULSE 93; PULSE 96; O2SAT 91; O2SAT 92; O2SAT 93; O2SAT 94
--- NOTE | 2020-09-14 14:21 | WT_ITS ---
PSN 6 Minute Walk Test 6 Minute Walk Test 6 Minute Walk Test: 6 Minute Walk Test PSN:6-Minute Walk Test Start: 09/13/20 13:58 Freq: Status: Active Protocol: [id number] Document 09/13/20 13:45 BETITO (Rec: 09/13/20 14:00 BETITO [id number]) 6 Minute Walk Test Date Performed 09/13/20 Time Performed 13:45 Height 5 ft 9 in Weight: 220 lb 6.548 oz Weight in Pounds 220.[address]: Taty Douglas [employer] Assistive device used: None Pre-test Oxygen Delivery Method Room Air Pulse Ox (%) 94 Pulse Rate (60-100 beats/min) 71 Dyspnea Jm Scale (0-10) 0.5 Exertion Jm Scale (6-20) 6 1st minute Oxygen Delivery Method Room Air Pulse Ox (%) 92 Pulse Rate (60-100 beats/min) 89 2nd minute Oxygen Delivery Method Room Air Pulse Ox (%) 91 Pulse Rate (60-100 beats/min) 93 3rd minute Oxygen Delivery Method Room Air Pulse Ox (%) 91 Pulse Rate (60-100 beats/min) 96 4th minute Oxygen Delivery Method Room Air Pulse Ox (%) 92 Pulse Rate (60-100 beats/min) 88 5th minute Oxygen Delivery Method Room Air Pulse Ox (%) 91 Pulse Rate (60-100 beats/min) 96 6th minute Oxygen Delivery Method Room Air Pulse Ox (%) 92 Pulse Rate (60-100 beats/min) 81 Dyspnea Jm Scale (0-10) 3 Exertion Jm Scale (6-20) 11 Post-test Oxygen Delivery Method Room Air Pulse Ox (%) 93 Pulse Rate (60-100 beats/min) 77 Full Laps Walked 10 Partial Lap, Number of Tiles Walked 15 Total Distance Walked (ft) 605 Interpretation Interpretation: The patient ambulated 605 feet over the course of 6 minutes beginning on room air without assistive devices. Pretesting oxygen saturation was noted to be 94% on room air. With ambulation, the [place] oxygen saturation was 91%. Although there was evidence of impaired walk distance, there was no significant exertional oxygen desaturation. Recommendations Recommendations: There is no indication for the use of supplemental oxygen at this time.
== END ==
PROVIDERS: PCP Family Medicine; Referring Provider Nurse Practitioner Acute Care; Visit Provider Nurse Practitioner Acute Care
DX: J44.9 Chronic obstructive pulmonary disease, unspecified (principal)
CPT/HCPCS: 94618

== ENCOUNTER → 2020-12-06 13:36 | Outpatient (CLI) | payer MEDICARE, SELFPAY ==
[2020-12-06 15:00] LABS: AST(SGOT) 24 U/L (15-37); Alanine Aminotransfer ALT/SGPT 30 U/L (16-61); Albumin, Serum 3.7 g/dL (3.2-5.0); Alkaline Phosphatase 99 U/L (45-117); Bilirubin, Direct 0.18 mg/dL (0.00-0.30); Cholesterol 122 mg/dL (200); Globulin 3.9 g/dL (2.2-4.2); High Density Lipoprotein 42 mg/dL; Protein, Total 7.6 g/dL (6.4-8.2); Triglycerides 126 mg/dL; Very Low Density Lipoprotein 25 mg/dL (5-40)
== END ==
PROVIDERS: PCP Family Medicine; Referring Provider Internal Medicine Cardiovascular Disease; Visit Provider Internal Medicine Cardiovascular Disease
DX: E78.00 Pure hypercholesterolemia, unspecified (principal)
CPT/HCPCS: 36415; 80061; 80076

== ENCOUNTER → 2020-12-26 15:48 | Outpatient (CLI) | payer MEDICARE, SELFPAY ==
[2020-12-26 16:59] LABS: PSA,Total- Diagnostic 3.35 ng/mL (0.0-4.0)
== END ==
PROVIDERS: PCP Family Medicine; Referring Provider Urology; Visit Provider Urology
DX: C61 Malignant neoplasm of prostate (principal)
CPT/HCPCS: 36415; 84153

== ENCOUNTER → 2022-01-01 | Outpatient (CLI) | payer MEDICARE, SELFPAY ==
[2022-01-01 15:36] LABS: PSA,Total- Diagnostic 3.27 ng/mL (0.0-4.0)
== END | disposition home or self-care (01) ==
LOC: LAB 14:00
PROVIDERS: PCP Family Medicine; Visit Provider Registered Nurse
DX: C61 Malignant neoplasm of prostate (principal)
CPT/HCPCS: 36415; 84153

== ENCOUNTER → 2022-04-06 | Outpatient (CLI) | payer MEDICARE, SELFPAY ==
--- NOTE | 2022-04-06 13:39 | ECHOCS_ITS ---
Reason For Study: Murmur Procedure This was a 2D Doppler, Color Flow transthoracic echocardiogram. The study was technically difficult. Contrast injection was performed. Exam performed in department. Left Ventricle Normal LV size. Left ventricular systolic function is normal. The estimated ejection fraction is 60 %. No evidence for diastolic dysfunction. No regional wall motion abnormalities noted. Right Ventricle Normal RV size. Normal systolic function. Atria The left atrium is mildly enlarged. Normal right atrium. No doppler evidence for ASD. Mitral Valve There is mild mitral annular calcification. Extension of the mitral annular calcification onto the base of the posterior mitral valve leaflet. Trivial mitral valve insufficiency. Tricuspid Valve Normal tricuspid valve. Trivial tricuspid valve insufficiency. Right ventricular systolic pressure estimated to be 17 mmHg. Aortic Valve Trisinus/trileaflet aortic valve. Mild diffuse aortic valve thickening. Moderate focal aortic valve calcification. Mild to moderate aortic stenosis. Pulmonic Valve The pulmonic valve is not well visualized. Trivial pulmonic valve insufficiency. Great Vessels Normal sized aortic root. Pericardium/Pleural No pericardial effusion. Medication 20 gauge I.V. with prn adaptor inserted into right arm. Diluted definity 3ml given slow IV push to enhance endocardial definition. MMode/2D Measurements & Calculations LVIDd: 3.6 cm IVSd: 1.2 cm LVOT diam: 2.2 cm LVIDs: 2.8 cm LVPWd: 1.3 cm FS: 21.2 % LVOT area: 3.9 cm2 Ao root diam: 3.7 cm LAV(MOD-sp4): 53.7 ml LA A4 area: 20.0 cm2 LA dimension: 4.0 cm Time Measurements MV dec time: 0.45 sec Doppler Measurements & Calculations MV E max clyde: 27.0 cm/sec Lat Peak E' Clyde: 6.6 cm/sec Med Peak E' Clyde: 4.4 cm/sec MV A max clyde: 60.3 cm/sec E/E' lat: 4.1 E/E' med: 6.1 MV E/A: 0.45 MV V2 max: 67.8 cm/sec Ao V2 max: 298.1 cm/sec LV V1 max: 67.3 cm/sec MV max P.8 mmHg Ao max P.6 mmHg LV V1 max P.8 mmHg MV V2 mean: 25.9 cm/sec Ao V2 mean: 190.4 cm/sec LV V1 mean P.78 mmHg MV mean P.34 mmHg Ao mean P.2 mmHg LV V1 mean: 40.2 cm/sec MV V2 VTI: 16.7 cm Ao V2 VTI: 62.1 cm LV V1 VTI: 13.2 cm AV (velocity ratio): 0.21 MVA(VTI): 3.1 cm2 YANI(I,D): 0.84 cm2 YANI(V,D): 0.89 cm2 SV(LVOT): 52.1 ml PA V2 max: 73.8 cm/sec TR max clyde: 189.2 cm/sec TR max P.3 mmHg ECHO/Echo Complete W/ Contrast Interpretation Summary The study was technically difficult. Contrast injection was performed. Left ventricular systolic function is normal. The estimated ejection fraction is 60 %. The left atrium is mildly enlarged. There is mild mitral annular calcification. Extension of the mitral annular calcification onto the base of the posterior mi tral valve leaflet. Trivial mitral valve insufficiency. Trivial tricuspid valve insufficiency. Mild to moderate aortic stenosis. Trivial pulmonic valve insufficiency. Right ventricular systolic pressure estimated to be 17 mmHg. No evidence for diastolic dysfunction. Ordering Physician: Bonita Morgan Referring Physician: Jean Cleaning Performed By: Abram Tesfaye RCS
== END | disposition home or self-care (01) ==
LOC: CVS 13:39
PROVIDERS: PCP Family Medicine; Visit Provider Physician Assistant Medical
DX: I25.10 Atherosclerotic heart disease of native coronary artery without angina pectoris (principal)
CPT/HCPCS: 93306; Q9957; A4216; C8929

== ENCOUNTER → 2023-01-21 | Outpatient (CLI) | payer MEDICARE, SELFPAY ==
[2023-01-21 15:50] LABS: PSA,Total- Diagnostic 2.11 ng/mL (0.0-4.0)
== END | disposition home or self-care (01) ==
LOC: LAB 14:39
PROVIDERS: PCP Family Medicine; Referring Provider Nurse Practitioner; Visit Provider Nurse Practitioner
DX: C61 Malignant neoplasm of prostate (principal)
CPT/HCPCS: 36415; 84153

== ENCOUNTER → 2023-07-04 | Outpatient (CLI) | payer MEDICARE, SELFPAY ==
--- NOTE | 2023-07-04 13:46 | ECHOCS_ITS ---
Reason For Study: ASHD/CAD Procedure This was a 2D Doppler, Color Flow transthoracic echocardiogram. The study was technically difficult. Contrast injection was performed. Exam performed in department. Left Ventricle Normal LV size. Left ventricular systolic function is normal. The estimated ejection fraction is 60 %. Stage 1 diastolic dysfunction. No regional wall motion abnormalities noted. Right Ventricle Normal RV size. Normal systolic function. Tricuspid Valve Normal tricuspid valve. Aortic Valve Trisinus/trileaflet aortic valve. Moderate focal aortic valve calcification. Peak aortic valve gradient 44 mmHg. Mean aortic valve gradient 22 mmHg. Moderate aortic stenosis. Pulmonic Valve Normal pulmonic valve. Great Vessels Normal aortic root. The pulmonary artery is normal size. Inferior vena cava collapse with respiration. Pericardium/Pleural No pericardial effusion. Medication 22 gauge I.V. with prn adaptor inserted into right arm. Diluted definity 3.5ml given slow IV push to enhance endocardial definition. MMode/2D Measurements & Calculations LVIDd: 4.4 cm IVSd: 1.0 cm LVOT diam: 2.2 cm LVIDs: 3.0 cm LVPWd: 1.2 cm LVOT area: 4.0 cm2 FS: 33.1 % Ao root diam: 3.7 cm LAV(MOD-sp2): 75.0 ml Aortic Valve Planimetry: 0.69 cm2 LA dimension: 4.4 cm TAPSE: 2.1 cm Time Measurements MV dec time: 0.34 sec Doppler Measurements & Calculations MV E max clyde: 32.5 cm/sec Lat Peak E' Clyde: 7.3 cm/sec Med Peak E' Clyde: 5.6 cm/sec MV A max clyde: 56.1 cm/sec E/E' lat: 4.5 E/E' med: 5.8 MV E/A: 0.58 MV V2 max: 73.3 cm/sec MV P1/2t max clyde: 46.5 cm/sec Ao V2 max: 330.3 cm/sec MV max P.2 mmHg MV P1/2t: 134.7 msec Ao max P.7 mmHg MV V2 mean: 33.8 cm/sec MV dec slope: 101.2 cm/sec2 Ao V2 mean: 216.7 cm/sec MV mean P.55 mmHg Ao mean P.4 mmHg MV V2 VTI: 20.0 cm MVA(P1/2t): 1.6 cm2 Ao V2 VTI: 70.3 cm MVA(VTI): 3.9 cm2 AV (velocity ratio): 0.28 YANI(I,D): 1.1 cm2 YANI(V,D): 1.1 cm2 LV V1 max: 90.8 cm/sec SV(LVOT): 77.4 ml PA V2 max: 93.3 cm/sec LV V1 max P.3 mmHg PA V2 mean: 52.6 cm/sec LV V1 mean P.7 mmHg LV V1 mean: 58.6 cm/sec LV V1 VTI: 19.5 cm TR max clyde: 11.7 cm/sec TR max P.05 mmHg ECHO/Echo Complete W/ Contrast Interpretation Summary Normal LV size. Left ventricular systolic function is normal. The estimated ejection fraction is 60 %. Stage 1 diastolic dysfunction. Mean aortic valve gradient 22 mmHg. Moderate aortic stenosis. Contrast injection was performed. Ordering Physician: Phu Nails Referring Physician: Phu Nails Performed By: Abram Tesfaye RCS
== END | disposition home or self-care (01) ==
LOC: CVS 13:45
PROVIDERS: PCP Family Medicine; Referring Provider Nurse Practitioner Family; Visit Provider Nurse Practitioner Family
DX: I25.10 Atherosclerotic heart disease of native coronary artery without angina pectoris (principal); I35.0 Nonrheumatic aortic (valve) stenosis
CPT/HCPCS: 93306; Q9957; A4216; C8929

== ENCOUNTER → 2024-01-28 | Outpatient (CLI) | payer MEDICARE, SELFPAY ==
--- OUTSIDE RECORDS SUMMARY | 2024-01-28 19:39 | XMS RPT_ITS | CCD ---
Author Organization [facility] ion Partnership [facility] Care Team Providers Care Curator Of Collections Name Role Phone DeFinis, Harumi Y Unavailable Unavailable DeFinis, Harumi Y Unavailable Unavailable Roof PIT CRANE OPERATOR, Phu Fernandez Unavailable Vanessa Chino Unavailable Unavailable Unavailable Primary Care Provider UnavailSAMUEL Farfan Referring Unavailable SAUL FALCON DO Primary Care Physician SAUL FALCON DO Attending Unavailable SAUL FALCON DO Primary Care Unavailable SAUL FALCON DO Attending Unavailable SAUL FALCON DO Primary Care Unavailable SAUL FALCON DO Primary Care Unavailable [facility] [place] Admitting Unavail able DR MICAH PONCE DO Attending Unavailable Unavailable Primary Care Provider UnavailSAUL Moon DO Primary Care Unavailable DR MICAH PONCE DO Attending Unavailable [facility] [place] Admitting Unavail able SAUL FALCON DO Attending Unavailable SAUL FALCON DO Primary Care Unavailable Allergies Allergy Classification Reported Allergen(s) Allergy Type Date of Onset Reaction(s) Facility (4 sources) iodine Drug Allergy 06-21-2010 [facility] Work Phone: (4 sources) IODINE IVP DYE drug allergy 06-21-2010 [facility] Work Phone: (3 sources) latanoprost; Translations: [LATANOPROST] Drug Allergy 02-28-2023 Other: See Comments [facility] (1 source) Contrast media; Translations: [contrast media (iodine-based)] Drug allergy unknown [facility] Medications Current Medications Medication Drug Class(es) Dates Sig (Normalized) Sig (Original) Anoro Ellipta 62.5 mcg-25 mcg/inh inhalation powder (1 source) Start: 11-11-2023 take 1 dose by inhalation once daily Anoro Ellipta 62.5 mcg-25 mcg/inh inhalation powder Dose = 1 puff(s), Inhalation, qDay, # 60 blister, 0 Refill(s), [facility]: [id number], 188, cm, 11/08/23 22:42:00 EDT, Height, kg, 11/08/23 22:42:00 EDT, Dosing Weight Start Date: 11/11/23 Status: Ordered atorvastatin 80 mg oral tablet (11 sources) HMG-CoA Reductase Inhibitor Start: 06-27-2018 take 1 tablet by mouth once daily at bedtime atorvastatin (LIPITOR) 80 mg tablet Take 80 mg by mouth daily at bedtime. 01/29/2023 Active Start: 03-16-2011 take 1 tablet by hailey th once daily LIPITOR 80 MG TABS One tablet by mouth daily ATORVASTATIN CALCIUM [id number] Bonita Morgan PA-C Start: 06-21-2010 take 1 tablet by hailey th once daily LIPITOR 40 MG TABS One tablet by mouth daily ATORVASTATIN CALCIUM [id number] Qing Villa Comment on above: Take 80 mg by mouth daily at bedtime. bumetanide 1 mg oral tablet (11 sources) Loop Diuretic Start: 01-05-2019 take 1 tablet by mouth once bumetanide (BUMEX) 1 mg tablet Take 1 tablet by mouth every afternoon. 02/06/2023 Active Start: 06-21-2010 take 1 tablet by hailey th once daily BUMETANIDE 1 MG TABS One tablet by mouth daily BUMETANIDE [id number] Alejandro Arredondo MD Start: 06-21-2010 take 1 tablet by hailey th twice daily BUMETANIDE 1 MG TABS One tablet by mouth twice daily BUMETANIDE [id number] Amrik Maurice MD Comment on above: Take 1 tablet by hailey th every afternoon. cefdinir 300 mg oral capsule (1 source) Cephalosporin Antibacterial Start: 4 End: 4 cefdinir 300 mg oral capsule Dose : 300 mg = 1 cap(s), Oral, q12h, X 3 day(s), # 6 cap(s), 0 Refill(s), 11/14/23 9:00:00 PM EDT, [facility]: [facility] #[id number], 188, cm, 11/08/23 22:42:00 EDT, Height, 95.5, kg, 11/08/23 22:42:00 EDT, Dosing Weight Start Date: 11/11/23 Stop Date: 11/14/23 Status: Ordered clopidogrel 75 mg oral tablet (7 sources) P2Y12 Platelet Inhibitor Start: take 1 tablet by mouth once clopidogrel (PLAVIX) 75 mg tablet Take 1 tablet by mouth every afternoon. 01/23/2023 Active Start: 06-21-2010 take 1 tablet by hailey th once daily PLAVIX 75 MG TABS One tablet by mouth daily CLOPIDOGREL BISULFATE [id number] Amrik Maurice MD Comment on above: Take 1 tablet by hailey th every afternoon. dorzolamide 20 mg/ml ophthalmic solution (3 sources) Carbonic Anhydrase Inhibitor Start: 01-22-2023 dorzolamide (TRUSOPT) 2 % ophthalmic solution 01/22/2023 Active Start: 07-16-2022 take 1 drop(s) into the eye(s) twice daily dorzolamide 2% ophthalmic solution APPLY ONE DROP TO BOTH EYES 2 TIMES A DAY. Start Date: 07/16/22 Status: Ordered glipiZIDE 5 mg oral tablet (3 sources) Sulfonylurea Start: 02-04-2023 take 1 tablet by mouth once daily glipiZIDE 5 mg oral tablet 1 tab(s), Oral, qDay, # 90 tab(s), 1 Refill(s), [facility]: [facility][id number], 175, cm, 09/13/23 13:07:00 EDT, Height, kg, 09/13/23 13:07:00 EDT, Dosing Weight Start Date: 09/18/23 Status: Ordered Comment on above: Take 1 tablet by hailey th every afternoon. meloxicam 15 mg oral tablet (7 sources) Nonsteroidal Anti-inflammatory Drug Start: 02-19-2023 take 1 tablet by mouth once daily meloxicam 15 mg oral tablet 1 tab(s), Oral, qDay, # 90 tab(s), 0 Refill(s), [facility]: [facility] #[id number], 175, cm, 09/13/23 13:07:00 EDT, Height, kg, 09/13/23 13:07:00 EDT, Dosing Weight Start Date: 10/29/23 Status: Ordered Start: 01-20-2013 take 1 tablet by hailey th once daily MELOXICAM 15 MG TABS One tablet by mouth daily MELOXICAM [id number] Amrik Maurice MD Comment on above: Take 1 tablet by hailey th every afternoon. netarsudil 0.2 mg/ml ophthalmic solution (3 sources) Rho Kinase Inhibitor Start: 02-25-2023 RHOPRESSA 0.02 % ophthalmic drops 02/25/2023 Active Start: 01-07-2020 take 1 drop(s) into the eye(s) once daily Rhopressa 0.02% ophthalmic solution Dose = 1 drop(s), Eyes, both, BID, INSTILL 1 DROP INTO BOTH EYES EVERY DAY Start Date: 01/07/20 Status: Ordered microencapsulated potassium chloride 20 meq extended release oral tablet (11 sources) Start: 12-29-2022 take 1 tablet by mouth once potassium chloride ER (KLOR-CON) 20 mEq tablet Take 1 tablet by mouth every afternoon. 12/29/2022 Active Start: 06-27-2018 Klor-Con M20 o ral tablet, extended release Dose : 20 mEq = 1 tab(s), Oral, qDay, # 30 tab(s), 0 Refill(s) Start Date: 06/27/18 Status: Ordered Start: 05-06-2012 take 1 tablet by hailey th once daily KLOR-CON M20 20 MEQ CR-TABS One tablet by mouth daily POTASSIUM CHLORIDE ROXIE CR [id number] FIDELIA NogueraC Start: 06-21-2010 take 1 tablet by hailey th once daily POTASSIUM CHLORIDE 20 MEQ PACK One tablet by mouth daily POTASSIUM CHLORIDE [id number] Bradford Garcia MD Comment on above: Take 1 tablet by hailey th every afternoon. 30 actuat umeclidinium 0.0625 mg/actuat / vilanterol 0.025 mg/actuat dry powder inhaler (2 sources) Anticholinergic, beta2-Adrenergic Agonist Start: 02-26-2023 ANORO ELLIPTA 62.5-25 mcg/actuation inhaler 02/26/2023 Active Completed/Discontinued Medications Medication Drug Class(es) Dates Sig (Normalized) Sig (Original) acetaminophen 325 mg / oxyCODONE hydrochloride 10 mg oral tablet (8 sources) Opioid Agonist Start: 01-26-2016 End: 08-06-2016 PERCOCET 10-325 MG TABS As needed OXYCODONE-ACETAM INOPHEN [id number] Bonita Michaels RN amLODIPine 10 mg oral tablet (8 sources) Dihydropyridine Calcium Channel Gavin Start: 06-21-2010 take 1 tablet by mouth once daily NORVASC 10 MG TABS One half tablet by mouth daily AMLODIPINE BESYLATE [id number] Vanessa Chino aspirin 81 mg oral tablet (16 sources) Nonsteroidal Anti-inflammatory Drug Start: 01-20-2013 take 1 tablet by mouth once daily ASPIRIN 81 MG TABS One tablet by mouth daily ASPIRIN [id number] Amrik Maurice MD Start: 01-20-2013 take 1 tablet by hailey th once daily ASPIRIN EC 81 MG TBEC One tablet by mouth daily ASPIRIN [id number] Ruth Mendoza RN Start: 06-21-2010 End: 01-20-2013 take 1 tablet by mouth once daily ASPIRIN 325 MG TABS One tablet by mouth daily ASPIRIN [id number] Qing Villa celecoxib 200 mg oral capsule (8 sources) Nonsteroidal Anti-inflammatory Drug Start: 06-21-2010 End: 01-20-2013 take 1 tablet by mouth once daily CELEBREX 200 MG CAPS One tablet by mouth daily CELECOXIB [id number] Amrik Maurice MD diphenhydrAMINE hydrochloride 25 mg oral tablet (12 sources) Histamine-1 Receptor Antagonist Start: 07-20-2014 DIPHENHYDRAMINE HCL 25 MG TABS as needed DIPHENHYDRAMINE HCL [id number] Amrik Maurice MD Start: 06-21-2010 End: 07-23-2013 take 1 tablet by mouth at bedtime BENADRYL CAPS One tablet by mouth at bedtime. DIPHENHYDRAMINE HCL CAPS [id number] Amrik Maurice MD Start: 06-21-2010 take 1 tablet by hailey th at bedtime BENADRYL CAPS One tablet by mouth at bedtime. DIPHENHYDRAMINE HCL CAPS [id number] Qing Villa doxycycline monohydrate 100 mg oral capsule (2 sources) Tetracycline-class Drug Start: 02-28-2023 End: 03-05-2023 take 1 capsule by mouth twice daily doxycycline monohydrate (MONODOX) 100 mg capsule Indications: Subacute cough , Acute non-recurrent sinusitis, unspecified location Take 1 capsule by mouth two times a day for 5 days. 10 capsule 02/28/2023 03/05/2023 Comment on above: Take 1 capsule by mo [facility] two times a day for 5 days. fexofenadine (4 sources) Histamine-1 Receptor Antagonist Start: 07-20-2014 CHIDI 180 MG TABS as needed FEXOFENADINE HCL Amrik Maurice MD 24 hr isosorbide mononitrate 30 mg extended release oral tablet (3 sources) Nitrate Vasodilator Start: 01-06-2023 take 1 tablet by mouth once daily isosorbide mononitrate 30 mg oral tablet, extended release take 1/2 tablet by mouth once daily Start Date: 11/08/23 Status: Ordered Comment on above: Take 0.5 tablets by mouth every afternoon. isosorbide dinitrate 20 mg oral tablet (16 sources) Nitrate Vasodilator Start: 05-14-2011 take 1 tablet by mouth three times daily ISOSORBIDE DINITRATE 20 MG TABS One tablet by mouth three times daily ISOSORBIDE DINITRATE [id number] Amrik Maurice MD Start: 05-14-2011 take 1 tablet by hailey th three times daily ISOSORBIDE DINITRATE 10 MG TABS (Isordil) One tablet by mouth three times daily ISOSORBIDE DINITRATE [id number] Amrik Maurice MD Start: 06-21-2010 take 2 tablets by mo uth three times daily ISOSORBIDE DINITRATE 20 MG TABS Two tablets by mouth three times daily ISOSORBIDE DINITRATE [id number] Amrik Maurice MD loratadine 10 mg oral tablet (8 sources) Start: 01-20-2013 End: 07-23-2013 take 1 tablet by mouth once daily LORATADINE 10 MG TABS One tablet by mouth daily LORATADINE [id number] Amrik Maurice MD metoprolol tartrate 50 mg oral tablet (8 sources) beta-Adrenergic Gavin Start: 11-10-2023 End: 11-10-2023 take 1 tablet by mouth in the evening Metoprolol Tartrate 50 mg oral tablet Start: 11/10/23 5:00:00 PM EDT, Dose = 50 mg, = 1 tab(s), Oral, Hold if SBP (mmHg) Start Date: 11/10/23 Stop Date: 11/10/23 Status: Completed Start: 11-07-2021 take 1 tablet by hailey th every twelve hours metoprolol tartrate, short acting, (LOPRESSOR) 50 mg tablet Take 1 tablet by mouth every 12 hours. 12/31/2022 Active Start: 06-21-2010 take 1 tablet by hialey th once daily TOPROL XL 100 MG [id number] One tablet by mouth daily METOPROLOL SUCCINATE [id number] Bonita Morgan PA-C Comment on above: Take 1 tablet by hailey th every 12 hours. 24 hr niacin 1000 mg extended release oral tablet (8 sources) Nicotinic Acid Start: 06-22-19 11 End: 05-11-19 14 take 1 tablet by mouth at bedtime NIASPAN 1000 MG CR-TABS (ER) One tablet by mouth at bedtime. NIACIN (ANTIHYPERLIPIDEMIC) [id number] Leigh Nolasco RN nitroglycerin 0.4 mg/actuat mucosal spray (8 sources) Nitrate Vasodilator Start: 06-22-19 11 NITROLINGUAL 0.4 MG/SPRAY SOLN Take as directed NITROGLYCERIN [id number] Amrik Maurice MD Start: 06-21-2010 NITROSTAT 0.4 MG SUBL 1 tablet under tongue every 5 min up to 3 X NITROGLYCERIN [id number] FIDELIA NogueraC ramipril 2.5 mg oral capsule (4 sources) Angiotensin Converting Enzyme Inhibitor Start: 06-21-2010 take 1 tablet by mouth once daily ALTACE 2.5 MG CAPS One tablet by mouth daily RAMIPRIL [id number] Amrik Maurice MD B COMPLEX VITAMINS (4 sources) Start: 06-21-2010 take 1 tablet by mouth once daily VITAMIN B COMPLEX TABS With C, One tablet by mouth daily B COMPLEX VITAMINS [id number] Qing Andres Villa Problems Active Problems Problem Classification Problem Date Documented Da te Episodic/Chronic Administrative/social admission (1 source) Bereavement 04-04-2021 Episodic Chronic obstructive pulmonary disease and bronchiectasis (2 sources) Chronic obstructive lung disease; Translations: [Chronic obstructive pulmonary disease, unspecified] Onset: 11-09-2023 Chronic Coronary atherosclerosis and other heart disease (18 sources) Coronary arteriosclerosis; Translations: [Atherosclerotic heart disease of [place] coronary artery without angina pectoris] Onset: 06-21-2010 Resolved: 05-12-2015 05-12-2015 Chronic Diabetes mellitus without complication (6 sources) Type 2 diabetes mellitus without complication; Translations: [Type 2 diabetes mellitus without complications] Onset: 03-22-2023 Chronic Disorders of lipid metabolism (4 sources) Hyperlipidemia; Translations: [Hyperlipidemia, unspecified] Onset: 06-21-2010 06-21-2010 Chronic Essential hypertension (6 sources) Hypertensive disorder; Translations: [Essential hypertension] Onset: 06-21-2010 06-21-2010 Chronic Glaucoma (1 source) Glaucoma 06-27-2018 Chronic Heart valve disorders (13 sources) Nonrheumatic aortic (valve) stenosis; Translations: [Aortic incompetence, non-rheumatic ] Onset: 01-24-2015 05-12-2015 Chronic Osteoarthritis (1 source) Osteoarthritis 06-27-2018 Chronic Other lower respiratory disease (2 sources) Cough; Translations: [Subacute cough] 02-28-2023 Episodic Other screening for suspected conditions (not mental disorders or infectious disease) (1 source) Viral screening status 07-04-2021 Episodic Other upper respiratory infections (1 source) Acute sinusitis; Translations: [Acute sinusitis, unspecified] 02-28-2023 Episodic Pneumonia (except that caused by tuberculosis or sexually transmitted disease) (1 source) Pneumonia; Translations: [Pneumonia, unspecified organism] Onset: 11-09-2023 Episodic Residual codes; unclassified (1 source) Altered mental status; Translations: [Altered mental status, unspecified] Onset: 11-09-2023 Episodic Residual codes; unclassified (2 sources) Disorientation, unspecified; Translations: [Disorientation, unspecified] Onset: 11-08-2023 Episodic Septicemia (except in labor) (1 source) Sepsis; Translations: [Sepsis, unspecified organism] Onset: 11-08-2023 Episodic Unclassified (4 sources) Placement of stent in coronary artery ; Translations: [Presence of coronary angioplasty implant and graft] Onset: 06-21-2010 05-12-2015 Unclassified (4 sources) Long-term drug therapy; Translations: [Other mcc (current) drug therapy] Onset: 06-21-2010 06-21-2010 Unclassified (1 source) Subacute cough; Translations: [Subacute cough] Onset: 02-28-2023 Unclassified (1 source) Influenza vaccination declined 01-07-2020 Unclassified (1 source) Patient encounter status 11-07-2021 Past or Other Problems Problem Classification Problem Date Documented Da te Episodic/Chronic Coronary atherosclerosis and other heart disease (4 sources) Coronary angioplasty status; Translations: [Coronary angioplasty status] Onset: 06-21-2010 06-21-2010 Episodic Unclassified (4 sources) Body mass index (BMI) 29.0-29.9, adult; Translations: [Body mass index (BMI) 29.0-29.9, adult] Onset: 01-20-2013 01-20-2013 Episodic Results Test Name Value Interpretation Reference Range Facility .Auto Diffon 01-14-2024 Basophil, Absolute 0.0 10 3/mcL Normal 0.0-0.3 [facility] Comment on above: Performed By: #### A ANALIA, CMP, ADIFF, LIPID, CBC, GFR, A1C #### [address] [address] Basophils/100 WBC (Bld) 0.2 % Normal 0.0-2.5 [facility] Comment on above: Performed By: #### A ANALIA, CMP, ADIFF, LIPID, CBC, GFR, A1C #### [address] [address] Eosinophil, Absolute 0.2 10 3/mcL Normal 0.0-0.[address] [facility] Comment on above: Performed By: #### A ANALIA, CMP, ADIFF, LIPID, CBC, GFR, A1C #### [address] [address] Eosinophils/100 WBC (Bld) 3.8 % Normal 0.0-6.0 [facility] Comment on above: Performed By: #### A ANALIA, CMP, ADIFF, LIPID, CBC, GFR, A1C #### [address] [address] Lymphocyte, Absolute 2.1 10 3/mcL Normal 0.9-4.[address] [facility] Comment on above: Performed By: #### A ANALIA, CMP, ADIFF, LIPID, CBC, GFR, A1C #### [address] [address] Lymphocytes/100 WBC (Bld) 34.7 % Normal 20.0-40.0 [facility] Comment on above: Performed By: #### A ANALIA, CMP, ADIFF, LIPID, CBC, GFR, A1C #### [address] [address] Monocyte, Absolute 0.5 10 3/mcL Normal 0.1-1.4 [facility] Comment on above: Performed By: #### A ANALIA, CMP, ADIFF, LIPID, CBC, GFR, A1C #### [address] [address] Monocytes/100 WBC (Bld) 8.2 % Normal 2.0-13.0 [facility] Comment on above: Performed By: #### A ANALIA, CMP, ADIFF, LIPID, CBC, GFR, A1C #### [address] [address] Neutrophils/100 WBC (Bld) 53.1 % Normal 50.0-75.0 [facility] Comment on above: Performed By: #### A ANALIA, CMP, ADIFF, LIPID, CBC, GFR, A1C #### [address] [address] .GFRon 01-14-2024 GFR Non- >60 Normal [facility] Comment on above: Result Comment: GFR Population mean for , Non- Americans Ages 20-29 = 116 mL/min/1.73 sq.m. Ages 30-39 = 107 mL/min/1.73 sq.m. Ages 40-49 = 99 mL/min/1.73 sq.m. Ages 50-59 = 93 mL/min/1.73 sq.m. Ages 60-69 = 85 mL/min/1.73 sq.m. Ages 70+ = 75 mL/min/1.73 sq.m. Chronic Kidney Disease: Less than 60 mL/min/1.73 square meters End Stage Renal Disease: Less than 15 mL/min/1.73 square meters Performed By: #### A ANALIA, CMP, ADIFF, LIPID, CBC, GFR, A1C #### [address] [address] GFR >60 Normal [facility] Comment on above: Result Comment: GFR Population mean for , Non- Americans Ages 20-29 = 116 mL/min/1.73 sq.m. Ages 30-39 = 107 mL/min/1.73 sq.m. Ages 40-49 = 99 mL/min/1.73 sq.m. Ages 50-59 = 93 mL/min/1.73 sq.m. Ages 60-69 = 85 mL/min/1.73 sq.m. Ages 70+ = 75 mL/min/1.73 sq.m. Chronic Kidney Disease: Less than 60 mL/min/1.73 square meters End Stage Renal Disease: Less than 15 mL/min/1.73 square meters Performed By: #### A ANALIA, CMP, ADIFF, LIPID, CBC, GFR, A1C #### [address] [address] .NEUABSon 01-14-2024 Neutrophil, Absolute 3.2 10 3/mcL Normal 2.3-8.[address] [facility] Comment on above: Performed By: #### A ANALIA, CMP, ADIFF, LIPID, CBC, GFR, A1C #### [address] [address] A1Con 01-14-2024 Glucose [Mass/Vol] 128 mg/dL Normal [facility] Comment on above: Result Comment: Lauren mated Average Glucose calculated by equation ((28.7xA1C)-46.7) Estimated average glucose (eAG) is a calculated value from Hemoglobin A1C and is asset protection representative of the average blood glucose level in the last 2-3 month period. Normal range: less than 114 mg/dL Performed By: #### A ANALIA, CMP, ADIFF, LIPID, CBC, GFR, A1C #### [place] [id number] HbA1c (Bld) [Mass fraction] 6.1 % High 4.0-6.0 [facility] Comment on above: Performed By: #### A ANALIA, CMP, ADIFF, LIPID, CBC, GFR, A1C #### [place] [id number] CBCon 01-14-2024 Erythrocyte distribution width (RBC) [Ratio] 14.2 % Normal 11.5-15.5 [facility] Comment on above: Performed By: #### A ANALIA, CMP, ADIFF, LIPID, CBC, GFR, A1C #### [place] [address] Hematocrit (Bld) [Volume fraction] 43.1 % Normal 40.0-52.0 [facility] Comment on above: Performed By: #### A ANALIA, CMP, ADIFF, LIPID, CBC, GFR, A1C #### [place] [address] Hgb 14.2 G/dL Normal 13.0-17.5 [facility] Comment on above: Performed By: #### A ANALIA, CMP, ADIFF, LIPID, CBC, GFR, A1C #### [place] [address] MCH (RBC) [Entitic mass] 31.1 pg Normal 27.0-33.0 [facility] Comment on above: Performed By: #### A ANALIA, CMP, ADIFF, LIPID, CBC, GFR, A1C #### [place] [id number] MCHC 33.0 G/dL Normal 32.0-36.0 [facility] Comment on above: Performed By: #### A ANALIA, CMP, ADIFF, LIPID, CBC, GFR, A1C #### [address] [address] MCV (RBC) [Entitic vol] 94.3 fL Normal 81.0-100.0 [facility] Comment on above: Performed By: #### A ANALIA, CMP, ADIFF, LIPID, CBC, GFR, A1C #### [address] [address] Platelet 105 10 3/mcL Low 150-450 [facility] Comment on above: Performed By: #### A ANALIA, CMP, ADIFF, LIPID, CBC, GFR, A1C #### [place] [id number] Platelet mean volume (Bld) [Entitic vol] 9.6 fL Normal 6.4-10.5 [facility] Comment on above: Performed By: #### A ANALIA, CMP, ADIFF, LIPID, CBC, GFR, A1C #### [place] [id number] RBC 4.57 10 6/mcL Normal 4.50-6.00 [facility] Comment on above: Performed By: #### A ANALIA, CMP, ADIFF, LIPID, CBC, GFR, A1C #### [place] [id number] WBC 6.1 10 3/mcL Normal 4.5-10.8 [facility] Comment on above: Performed By: #### A ANALIA, CMP, ADIFF, LIPID, CBC, GFR, A1C #### [place] [address] CMPon 01-14-2024 Albumin Level 3.4 G/dL Normal 3.2-4.8 [facility] Comment on above: Performed By: #### A ANALIA, CMP, ADIFF, LIPID, CBC, GFR, A1C #### [place] [address] Albumin/Globulin [Mass ratio] 1.2 {ratio} Normal 0.9-1.6 [facility] Comment on above: Performed By: #### A ANALIA, CMP, ADIFF, LIPID, CBC, GFR, A1C #### [facility] [address] [place], [place] [address] ALP [Catalytic activity/Vol] 97 U/L Normal 38-126 [facility] Comment on above: Performed By: #### A ANALIA, CMP, ADIFF, LIPID, CBC, GFR, A1C #### [address] [address] ALT [Catalytic activity/Vol] 16 U/L Normal 12-55 [facility] Comment on above: Performed By: #### A ANALIA, CMP, ADIFF, LIPID, CBC, GFR, A1C #### [address] [address] AST [Catalytic activity/Vol] 26 U/L Normal 8-34 [facility] Comment on above: Performed By: #### A ANALIA, CMP, ADIFF, LIPID, CBC, GFR, A1C #### [address] [address] Bili Total 1.00 mg/dL Normal 0.20-1.20 [facility] Comment on above: Result Comment: Use of this assay is not recommended for patients undergoing treatment with eltrombopag due to the potential for falsely elevated results. Performed By: #### A ANALIA, CMP, ADIFF, LIPID, CBC, GFR, A1C #### [address] [address] BUN/Creatinine Ratio 18.7 ratio Normal 10.0-22.0 [facility] Comment on above: Performed By: #### A ANALIA, CMP, ADIFF, LIPID, CBC, GFR, A1C #### [address] [address] Calcium [Mass/Vol] 9.2 mg/dL Normal 8.7-10.4 [facility] Comment on above: Performed By: #### A ANALIA, CMP, ADIFF, LIPID, CBC, GFR, A1C #### [address] [address] Chloride [Moles/Vol] 102 mmol/L Normal 98-110 [facility] Comment on above: Performed By: #### A ANALIA, CMP, ADIFF, LIPID, CBC, GFR, A1C #### [address] [address] CO2 [Moles/Vol] 28 mmol/L Normal 22-32 [facility] Comment on above: Performed By: #### A ANALIA, CMP, ADIFF, LIPID, CBC, GFR, A1C #### [address] [address] Creatinine [Mass/Vol] 1.07 mg/dL Normal 0.60-1.40 [facility] Comment on above: Result Comment: Test ing performed on [employer] C[employer] analyzer using enzymatic creatinine methodology. Performed By: #### A ANALIA, CMP, ADIFF, LIPID, CBC, GFR, A1C #### [address] [address] Electrolyte Balance 6.0 mEq/L Normal 4.0-15.0 [facility] Comment on above: Performed By: #### A ANALIA, CMP, ADIFF, LIPID, CBC, GFR, A1C #### [address] [address] Globulin 2.8 G/dL Normal 1.5-3.8 [facility] Comment on above: Performed By: #### A ANALIA, CMP, ADIFF, LIPID, CBC, GFR, A1C #### [address] [address] Glucose [Mass/Vol] 94 mg/dL Normal 82-115 [facility] Comment on above: Performed By: #### A ANALIA, CMP, ADIFF, LIPID, CBC, GFR, A1C #### [address] [address] Potassium [Moles/Vol] 4.3 mmol/L Normal 3.5-5.0 [facility] Comment on above: Performed By: #### A ANALIA, CMP, ADIFF, LIPID, CBC, GFR, A1C #### [address] [address] [address] Sodium [Moles/Vol] 136 mmol/L Normal 136-145 [facility] Comment on above: Performed By: #### A ANALIA, CMP, ADIFF, LIPID, CBC, GFR, A1C #### [address] [address] Total Protein 6.2 G/dL Normal 5.7-8.2 [facility] Comment on above: Result Comment: No te - New Reference Range in effect 19 Performed By: #### A ANALIA, CMP, ADIFF, LIPID, CBC, GFR, A1C #### [address] [address] Urea nitrogen [Mass/Vol] 20.0 mg/dL Normal 8.0-22.0 [facility] Comment on above: Performed By: #### A ANALIA, CMP, ADIFF, LIPID, CBC, GFR, A1C #### [address] [address] LIPIDon 01-14-2024 Cholesterol [Mass/Vol] 115 mg/dL Normal 50-199 [facility] Comment on above: Result Comment: Chol esterol Reference Interval: Less than 200 Desirable 200-239 Borderline high risk 240 and above High risk Performed By: #### A ANALIA, CMP, ADIFF, LIPID, CBC, GFR, A1C #### [address] [address] Cholesterol in HDL [Mass/Vol] 35 mg/dL Low 40-59 [facility] Comment on above: Performed By: #### A ANALIA, CMP, ADIFF, LIPID, CBC, GFR, A1C #### [address] [address] Cholesterol in LDL [Mass/Vol] 60 mg/dL Normal 0-129 [facility] Comment on above: Performed By: #### A ANALIA, CMP, ADIFF, LIPID, CBC, GFR, A1C #### [address] [address] Triglyceride [Mass/Vol] 102 mg/dL Normal 3-149 [facility] Comment on above: Performed By: #### A ANALIA, CMP, ADIFF, LIPID, CBC, GFR, A1C #### [address] [address] .GFRon 11-11-2023 GFR 103 ml/min/1.73sqm Normal [facility] ([place]) Comment on above: Result Comment: GFR Population mean for , Non- Americans Ages 20-29 = 116 mL/min/1.73 sq.m. Ages 30-39 = 107 mL/min/1.73 sq.m. Ages 40-49 = 99 mL/min/1.73 sq.m. Ages 50-59 = 93 mL/min/1.73 sq.m. Ages 60-69 = 85 mL/min/1.73 sq.m. Ages 70+ = 75 mL/min/1.73 sq.m. Chronic Kidney Disease: Less than 60 mL/min/1.73 square meters End Stage Renal Disease: Less than 15 mL/min/1.73 square meters Performed By: #### R AUDIE #### [address] [address] GFR Non- 85 ml/min/1.73sqm Normal [facility] ([place]) Comment on above: Result Comment: GFR Population mean for , Non- Americans Ages 20-29 = 116 mL/min/1.73 sq.m. Ages 30-39 = 107 mL/min/1.73 sq.m. Ages 40-49 = 99 mL/min/1.73 sq.m. Ages 50-59 = 93 mL/min/1.73 sq.m. Ages 60-69 = 85 mL/min/1.73 sq.m. Ages 70+ = 75 mL/min/1.73 sq.m. Chronic Kidney Disease: Less than 60 mL/min/1.73 square meters End Stage Renal Disease: Less than 15 mL/min/1.73 square meters Performed By: #### R AUDIE #### [address] [address] CMPOrdered By: SYSTEM SYSTEM on 11-11-2023 Chloride [Moles/Vol] 106 mmol/L Normal 98-107 AO A DM SS Comment on above: Performed By: #### L AC #### [address] [address] CO2 [Moles/Vol] 28 mmol/L Normal 23-31 AO ADM SS Comment on above: Performed By: #### L AC #### [address] [address] Electrolyte Balance 6.0 mEq/L Normal 4.0-15.0 AO AD M SS Comment on above: Performed By: #### L AC #### [place] [address] [address] Potassium [Moles/Vol] 4.0 mmol/L Normal 3.5-5.1 AO ADM SS Comment on above: Performed By: #### L AC #### [place] [address] [address] Sodium [Moles/Vol] 140 mmol/L Normal 136-145 AO ADM SS Comment on above: Performed By: #### L AC #### [place] [address] [address] Albumin/Globulin [Mass ratio] 0.9 {ratio} Low 1.1-2.5 AO ADM SS Comment on above: Performed By: #### L AC #### [address] [address] ALP [Catalytic activity/Vol] 98 U/L Normal 40-135 AO ADM SS Comment on above: Performed By: #### L AC #### [address] [address] Calcium [Mass/Vol] 7.8 mg/dL Low 8.4-10.2 AO ADM SS Comment on above: Performed By: #### L AC #### [address] [address] Creatinine [Mass/Vol] 0.87 mg/dL Normal 0.70-1.30 AO ADM SS Comment on above: Performed By: #### L AC #### [address] [address] Globulin 2.7 G/dL Normal AO ADM SS Comment on above: Performed By: #### L AC #### [place] [address] [address] Glucose [Mass/Vol] 110 mg/dL Normal 83-110 AO ADM SS Comment on above: Performed By: #### L AC #### [address] [address] Urea nitrogen [Mass/Vol] 12 mg/dL Normal 7-18 AO ADM SS Comment on above: Performed By: #### L AC #### [address] [address] CMPon 11-11-2023 Albumin Level 2.5 G/dL Low 3.4-4.8 [facility] ([place]) Comment on above: Performed By: #### L AC #### [address] [place], [place] [address] ALT [Catalytic activity/Vol] 65 U/L High 16-63 [facility] ([place] Comment on above: Performed By: #### L AC #### [address] [address] AST [Catalytic activity/Vol] 123 U/L High 10-40 [facility] ([place] Comment on above: Performed By: #### L AC #### [address] [address] Bili Total 0.6 mg/dL Normal 0.2-1.0 [facility] ([place]) Comment on above: Result Comment: Use of this assay is not recommended for patients undergoing treatment with eltrombopag due to the potential for falsely elevated results. Performed By: #### L AC #### [address] [address] BUN/Creatinine Ratio 14 ratio Normal 7-27 [facility] ([place]) Comment on above: Performed By: #### L AC #### [address] [address] Total Protein 5.2 G/dL Low 6.4-8.2 [facility] ([place] Comment on above: Performed By: #### L AC #### [address] [address] LABORATORYOrdered By: Mau Mckeon on 11-11-2023 Blood Glucose Testing Reason Routine (11/11/23 11:31 AM) [facility] [place] [facility] Glucose [Mass/Vol] 129 mg/dL High 82 - 115 mg/dL [facility] [place] [facility] Blood Glucose Testing Reason Routine (11/11/23 7:46 AM) [facility] Glucose [Mass/Vol] 106 mg/dL Normal 82 - 115 mg/dL [facility] LABORATORYOrdered By: SYSTEM SYSTEM on 11-11-2023 Albumin BCP dye [Mass/Vol] 2.5 G/dL Low 3.4 - 4.8 G/dL AO ADM SS ALT With P-5'-P [Catalytic activity/Vol] 65 U/L High 16 - 63 U/L AO ADM SS AST With P-5'-P [Catalytic activity/Vol] 123 U/L High 10 - 40 U/L AO ADM SS Bilirubin [Mass/Vol] 0.6 mg/dL Normal 0.2 - 1 .0 mg/dL AO ADM SS Comment on above: Interpretive Data: U se of this assay is not recommended for patients undergoing treatment with eltrombopag due to the potential for falsely elevated results. GFR/1.73 sq M.predicted among blacks MDRD (S/P/Bld) [Vol rate/Area] 103 ml/min/1.73sqm Invalid Interpretation Code AO Chemistry S Comment on above: Interpretive Data: GFR Population mean for , Non- Americans Ages 20-29 = 116 mL/min/1.73 sq.m. Ages 30-39 = 107 mL/min/1.73 sq.m. Ages 40-49 = 99 mL/min/1.73 sq.m. Ages 50-59 = 93 mL/min/1.73 sq.m. Ages 60-69 = 85 mL/min/1.73 sq.m. Ages 70+ = 75 mL/min/1.73 sq.m. Chronic Kidney Disease: Less than 60 mL/min/1.73 square meters End Stage Renal Disease: Less than 15 mL/min/1.73 square meters GFR/1.73 sq M.predicted among non-blacks MDRD (S/P/Bld) [Vol rate/Area] 85 ml/min/1.73sqm Invalid Interpretation Code AO Chemistry S Comment on above: Interpretive Data: GFR Population mean for , Non- Americans Ages 20-29 = 116 mL/min/1.73 sq.m. Ages 30-39 = 107 mL/min/1.73 sq.m. Ages 40-49 = 99 mL/min/1.73 sq.m. Ages 50-59 = 93 mL/min/1.73 sq.m. Ages 60-69 = 85 mL/min/1.73 sq.m. Ages 70+ = 75 mL/min/1.73 sq.m. Chronic Kidney Disease: Less than 60 mL/min/1.73 square meters End Stage Renal Disease: Less than 15 mL/min/1.73 square meters Protein [Mass/Vol] 5.2 G/dL Low 6.4 - 8.2 G/dL AO ADM SS Urea nitrogen/Creatinine [Mass ratio] 14 ratio Normal 7 - 27 ratio AO ADM SS MGOrdered By: SYSTEM SYSTEM on 11-11-2023 Magnesium [Mass/Vol] 2.0 mg/dL Normal 1.8-2.4 AO A DM SS Comment on above: Performed By: #### L AC #### [address] [address] .Auto Diffon 11-10-2023 Basophil, Absolute 0.0 10 3/mcL Normal 0.0-0.2 [facility] ([place]) Comment on above: Performed By: #### A DIFF, ANEU, CMP, CBC, MG, GFR #### [address] [address] Basophils/100 WBC (Bld) 0.6 % Normal 0.0-2.5 [facility] ([place] Comment on above: Performed By: #### A DIFF, ANEU, CMP, CBC, MG, GFR #### [address] [address] Eosinophil, Absolute 0.0 10 3/mcL Normal 0.0-0.4 Counts include 234 beds at the [facility] ([place]) Comment on above: Performed By: #### A DIFF, ANEU, CMP, CBC, MG, GFR #### [address] [address] Eosinophils/100 WBC (Bld) 1.5 % Normal 0.0-7.0 [facility] ([place] Comment on above: Performed By: #### A DIFF, ANEU, CMP, CBC, MG, GFR #### [address] [address] Lymphocyte, Absolute 1.1 10 3/mcL Normal 0.8-3.9 Counts include 234 beds at the [facility] ([place]) Comment on above: Performed By: #### A DIFF, ANEU, CMP, CBC, MG, GFR #### [address] [address] Lymphocytes/100 WBC (Bld) 36.1 % Normal 10.0-50.0 [facility] ([place] Comment on above: Performed By: #### A DIFF, ANEU, CMP, CBC, MG, GFR #### [address] [address] Monocyte, Absolute 0.3 10 3/mcL Normal 0.2-1.0 [facility] ([place]) Comment on above: Performed By: #### A DIFF, ANEU, CMP, CBC, MG, GFR #### [address] [address] Monocytes/100 WBC (Bld) 10.3 % Normal 1.7-13.0 [facility] ([place] Comment on above: Performed By: #### A DIFF, ANEU, CMP, CBC, MG, GFR #### [address] [address] Neutrophils/100 WBC (Bld) 51.5 % Normal 37.0-80.0 [facility] ([place] Comment on above: Performed By: #### A DIFF, ANEU, CMP, CBC, MG, GFR #### [address] [address] .GFRon 11-10-2023 GFR Non- 74 ml/min/1.73sqm Normal [facility] ([place] Comment on above: Result Comment: GFR Population mean for , Non- Americans Ages 20-29 = 116 mL/min/1.73 sq.m. Ages 30-39 = 107 mL/min/1.73 sq.m. Ages 40-49 = 99 mL/min/1.73 sq.m. Ages 50-59 = 93 mL/min/1.73 sq.m. Ages 60-69 = 85 mL/min/1.73 sq.m. Ages 70+ = 75 mL/min/1.73 sq.m. Chronic Kidney Disease: Less than 60 mL/min/1.73 square meters End Stage Renal Disease: Less than 15 mL/min/1.73 square meters Performed By: #### A DIFF, ANEU, CMP, CBC, MG, GFR #### [address] [address] GFR 90 ml/min/1.73sqm Normal [facility] ([place] Comment on above: Result Comment: GFR Population mean for , Non- Americans Ages 20-29 = 116 mL/min/1.73 sq.m. Ages 30-39 = 107 mL/min/1.73 sq.m. Ages 40-49 = 99 mL/min/1.73 sq.m. Ages 50-59 = 93 mL/min/1.73 sq.m. Ages 60-69 = 85 mL/min/1.73 sq.m. Ages 70+ = 75 mL/min/1.73 sq.m. Chronic Kidney Disease: Less than 60 mL/min/1.73 square meters End Stage Renal Disease: Less than 15 mL/min/1.73 square meters Performed By: #### A DIFF, ANEU, CMP, CBC, MG, GFR #### [address] [address] .NEUABSon 11-10-2023 Neutrophil, Absolute 1.6 10 3/mcL Low 2.9-6.2 Counts include 234 beds at the [facility] ([place] Comment on above: Performed By: #### A DIFF, ANEU, CMP, CBC, MG, GFR #### [address] [address] CBCon 11-10-2023 Erythrocyte distribution width (RBC) [Ratio] 14.4 % Normal 11.5-14.5 [facility] ([place] Comment on above: Performed By: #### A DIFF, ANEU, CMP, CBC, MG, GFR #### [address] [address] Hematocrit (Bld) [Volume fraction] 36.4 % Low 42.0-52.0 [facility] ([place] Comment on above: Performed By: #### A DIFF, ANEU, CMP, CBC, MG, GFR #### [address] [address] Hgb 12.3 G/dL Low 14.0-18.0 [facility] ([place] Comment on above: Performed By: #### A DIFF, ANEU, CMP, CBC, MG, GFR #### [address] [address] MCH (RBC) [Entitic mass] 31.4 pg High 27.0-31.2 [facility] ([place] Comment on above: Performed By: #### A DIFF, ANEU, CMP, CBC, MG, GFR #### [address] [address] MCHC 33.9 G/dL Normal 31.8-35.4 [facility] ([place] Comment on above: Performed By: #### A DIFF, ANEU, CMP, CBC, MG, GFR #### [address] [address] MCV (RBC) [Entitic vol] 92.8 fL Normal 80.0-94.0 [facility] ([place] Comment on above: Performed By: #### A DIFF, ANEU, CMP, CBC, MG, GFR #### [address] [address] Platelet 79 10 3/mcL Low 130-400 [facility] ([place] Comment on above: Performed By: #### A DIFF, ANEU, CMP, CBC, MG, GFR #### [address] [address] Platelet mean volume (Bld) [Entitic vol] 8.3 fL Normal 7.4-10.4 [facility] ([place] Comment on above: Performed By: #### A DIFF, ANEU, CMP, CBC, MG, GFR #### [address] [address] RBC 3.93 10 6/mcL Low 4.04-6.13 [facility] ([place] Comment on above: Performed By: #### A DIFF, ANEU, CMP, CBC, MG, GFR #### [address] [address] WBC 3.2 10 3/mcL Low 4.6-10.8 [facility] ([place] Comment on above: Performed By: #### A DIFF, ANEU, CMP, CBC, MG, GFR #### [address] [address] CMPon 11-10-2023 Albumin Level 2.6 G/dL Low 3.4-4.8 [facility] ([place] Comment on above: Performed By: #### A DIFF, ANEU, CMP, CBC, MG, GFR #### [address] [address] Albumin/Globulin [Mass ratio] 1.1 {ratio} Normal 1.1-2.5 [facility] ([place] Comment on above: Performed By: #### A DIFF, ANEU, CMP, CBC, MG, GFR #### [address] [address] ALP [Catalytic activity/Vol] 91 U/L Normal 40-135 [facility] ([place] Comment on above: Performed By: #### A DIFF, ANEU, CMP, CBC, MG, GFR #### [address] [address] ALT [Catalytic activity/Vol] 63 U/L Normal 16-63 [facility] ([place] Comment on above: Performed By: #### A DIFF, ANEU, CMP, CBC, MG, GFR #### [address] [address] AST [Catalytic activity/Vol] 129 U/L High 10-40 [facility] ([place] Comment on above: Performed By: #### A DIFF, ANEU, CMP, CBC, MG, GFR #### [address] [address] Bili Total 0.8 mg/dL Normal 0.2-1.0 [facility] ([place] Comment on above: Result Comment: Use of this assay is not recommended for patients undergoing treatment with eltrombopag due to the potential for falsely elevated results. Performed By: #### A DIFF, ANEU, CMP, CBC, MG, GFR #### [address] [address] BUN/Creatinine Ratio 15 ratio Normal 7-27 [facility] ([place]) Comment on above: Performed By: #### A DIFF, ANEU, CMP, CBC, MG, GFR #### [address] [address] Calcium [Mass/Vol] 7.6 mg/dL Low 8.4-10.2 [facility] ([place]) Comment on above: Performed By: #### A DIFF, ANEU, CMP, CBC, MG, GFR #### [address] [address] Chloride [Moles/Vol] 103 mmol/L Normal 98-107 [facility] ([place] Comment on above: Performed By: #### A DIFF, ANEU, CMP, CBC, MG, GFR #### [address] [address] CO2 [Moles/Vol] 26 mmol/L Normal 23-31 [facility] ([place] Comment on above: Performed By: #### A DIFF, ANEU, CMP, CBC, MG, GFR #### [address] [address] Creatinine [Mass/Vol] 0.98 mg/dL Normal 0.70-1.30 [facility] ([place]) Comment on above: Performed By: #### A DIFF, ANEU, CMP, CBC, MG, GFR #### [address] [address] Electrolyte Balance 7.0 mEq/L Normal 4.0-15.0 [facility] ([place]) Comment on above: Performed By: #### A DIFF, ANEU, CMP, CBC, MG, GFR #### [address] [address] Globulin 2.4 G/dL Normal [facility] ([place] Comment on above: Performed By: #### A DIFF, ANEU, CMP, CBC, MG, GFR #### [address] [address] Glucose [Mass/Vol] 109 mg/dL Normal 83-110 [facility] ([place]) Comment on above: Performed By: #### A DIFF, ANEU, CMP, CBC, MG, GFR #### [address] [address] Potassium [Moles/Vol] 3.7 mmol/L Normal 3.5-5.1 [facility] ([place]) Comment on above: Performed By: #### A DIFF, ANEU, CMP, CBC, MG, GFR #### [address] [address] Sodium [Moles/Vol] 136 mmol/L Normal 136-145 [facility] ([place]) Comment on above: Performed By: #### A DIFF, ANEU, CMP, CBC, MG, GFR #### [address] [address] Total Protein 5.0 G/dL Low 6.4-8.2 [facility] ([place] Comment on above: Performed By: #### A DIFF, ANEU, CMP, CBC, MG, GFR #### [address] [address] Urea nitrogen [Mass/Vol] 15 mg/dL Normal 7-18 [facility] ([place] Comment on above: Performed By: #### A DIFF, ANEU, CMP, CBC, MG, GFR #### [address] [address] LABORATORYOrdered By: Martha Montero on 11-10-2023 Glucose [Mass/Vol] 126 mg/dL High 82 - 115 mg/dL [facility] [place] [facility] LABORATORYOrdered By: Estefany milligan on 11-10-2023 Blood Glucose Testing Reason Routine (11/10/23 4:13 PM) [facility] LABORATORYOrdered By: SYSTEM SYSTEM on 11-10-2023 Albumin BCP dye [Mass/Vol] 2.6 G/dL Low 3.4 - 4.8 G/dL AO ADM SS Albumin/Globulin [Mass ratio] 1.1 {ratio} Normal 1.1 - 2.5 ratio AO ADM SS ALP [Catalytic activity/Vol] 91 U/L Normal 40 - 135 U/L AO ADM SS ALT With P-5'-P [Catalytic activity/Vol] 63 U/L Normal 16 - 63 U/L AO ADM SS AST With P-5'-P [Catalytic activity/Vol] 129 U/L High 10 - 40 U/L AO ADM SS Basophil, Absolute 0.0 103/mcL Normal 0.0 - 0.2 10^3/mcL AO Workflow SS Basophils/100 WBC (Bld) 0.6 % Normal 0.0 - 2.5 % AO Workflow SS Bilirubin [Mass/Vol] 0.8 mg/dL Normal 0.2 - 1 .0 mg/dL AO ADM SS Comment on above: Interpretive Data: U se of this assay is not recommended for patients undergoing treatment with eltrombopag due to the potential for falsely elevated results. Calcium [Mass/Vol] 7.6 mg/dL Low 8.4 - 10. 2 mg/dL AO ADM SS Chloride [Moles/Vol] 103 mmol/L Normal 98 - 10 7 mmol/L AO ADM SS CO2 [Moles/Vol] 26 mmol/L Normal 23 - 31 mmol/L AO ADM SS Creatinine [Mass/Vol] 0.98 mg/dL Normal 0.70 - 1.30 mg/dL AO ADM SS Electrolyte Balance 7.0 mEq/L Normal 4.0 - 15 .0 mEq/L AO ADM SS Eosinophil, Absolute 0.0 103/mcL Normal 0.0 - 0 .4 10^3/mcL AO Workflow SS Eosinophils/100 WBC (Bld) 1.5 % Normal 0.0 - 7.0 % AO Workflow SS Erythrocyte distribution width (RBC) [Ratio] 14.4 % Normal 11.5 - 14.5 % AO Workflow SS GFR/1.73 sq M.predicted among blacks MDRD (S/P/Bld) [Vol rate/Area] 90 ml/min/1.73sqm Invalid Interpretation Code AO Chemistry S Comment on above: Interpretive Data: GFR Population mean for , Non- Americans Ages 20-29 = 116 mL/min/1.73 sq.m. Ages 30-39 = 107 mL/min/1.73 sq.m. Ages 40-49 = 99 mL/min/1.73 sq.m. Ages 50-59 = 93 mL/min/1.73 sq.m. Ages 60-69 = 85 mL/min/1.73 sq.m. Ages 70+ = 75 mL/min/1.73 sq.m. Chronic Kidney Disease: Less than 60 mL/min/1.73 square meters End Stage Renal Disease: Less than 15 mL/min/1.73 square meters GFR/1.73 sq M.predicted among non-blacks MDRD (S/P/Bld) [Vol rate/Area] 74 ml/min/1.73sqm Invalid Interpretation Code AO Chemistry S Comment on above: Interpretive Data: GFR Population mean for , Non- Americans Ages 20-29 = 116 mL/min/1.73 sq.m. Ages 30-39 = 107 mL/min/1.73 sq.m. Ages 40-49 = 99 mL/min/1.73 sq.m. Ages 50-59 = 93 mL/min/1.73 sq.m. Ages 60-69 = 85 mL/min/1.73 sq.m. Ages 70+ = 75 mL/min/1.73 sq.m. Chronic Kidney Disease: Less than 60 mL/min/1.73 square meters End Stage Renal Disease: Less than 15 mL/min/1.73 square meters Globulin 2.4 G/dL Invalid Interpretation Code AO ADM SS Glucose [Mass/Vol] 109 mg/dL Normal 83 - 110 mg/dL AO ADM SS Hematocrit (Bld) [Volume fraction] 36.4 % Low 42.0 - 52.0 % AO Workflow SS Hemoglobin (Bld) [Mass/Vol] 12.3 G/dL Low 14.0 - 18.0 G/dL AO Workflow SS Lymphocyte, Absolute 1.1 103/mcL Normal 0.8 - 3 .9 10^3/mcL AO Workflow SS Lymphocytes/100 WBC (Bld) 36.1 % Normal 10.0 - 50.0 % AO Workflow SS Magnesium [Mass/Vol] 2.1 mg/dL Normal 1.8 - 2 .4 mg/dL AO ADM SS MCH (RBC) [Entitic mass] 31.4 pg High 27.0 - 31.2 pg AO Workflow SS MCHC 33.9 G/dL Normal 31.8 - 35.4 G/dL AO Workflow SS MCV (RBC) [Entitic vol] 92.8 fL Normal 80.0 - 94.0 fL AO Workflow SS Monocyte, Absolute 0.3 103/mcL Normal 0.2 - 1.0 10^3/mcL AO Workflow SS Monocytes/100 WBC (Bld) 10.3 % Normal 1.7 - 13.0 % AO Workflow SS Neutrophil, Absolute 1.6 103/mcL Low 2.9 - 6 .2 10^3/mcL AO Workflow SS Neutrophils/100 WBC (Bld) 51.5 % Normal 37.0 - 80.0 % AO Workflow SS Platelet mean volume (Bld) [Entitic vol] 8.3 fL Normal 7.4 - 10.4 fL AO Workflow SS Platelets (Bld) [#/Vol] 79 103/mcL Low 130 - 400 10^3/mcL AO Workflow SS Potassium [Moles/Vol] 3.7 mmol/L Normal 3.5 - 5.1 mmol/L AO ADM SS Protein [Mass/Vol] 5.0 G/dL Low 6.4 - 8.2 G/dL AO ADM SS RBC (Bld) [#/Vol] 3.93 106/mcL Low 4.04 - 6.1 3 10^6/mcL AO Workflow SS Sodium [Moles/Vol] 136 mmol/L Normal 136 - 145 mmol/L AO ADM SS Urea nitrogen [Mass/Vol] 15 mg/dL Normal 7 - 18 mg/dL AO ADM SS Urea nitrogen/Creatinine [Mass ratio] 15 ratio Normal 7 - 27 ratio AO ADM SS WBC (Bld) [#/Vol] 3.2 103/mcL Low 4.6 - 10.8 10^3/mcL AO Workflow SS MGon 11-10-2023 Magnesium [Mass/Vol] 2.1 mg/dL Normal 1.8-2.4 [facility] ([place]) Comment on above: Performed By: #### A DIFF, ANEU, CMP, CBC, MG, GFR #### [place] [address] [address] .Auto Diffon 11-09-2023 Basophil, Absolute 0.0 10 3/mcL Normal 0.0-0.2 [facility] ([place]) Comment on above: Performed By: #### A DIFF, ANEU, CMP, CBC, MG, GFR #### [address] [address] Basophils/100 WBC (Bld) 0.6 % Normal 0.0-2.5 [facility] ([place] Comment on above: Performed By: #### A DIFF, ANEU, CMP, CBC, MG, GFR #### [address] [address] Eosinophil, Absolute 0.0 10 3/mcL Normal 0.0-0.4 Counts include 234 beds at the [facility] ([place]) Comment on above: Performed By: #### A DIFF, ANEU, CMP, CBC, MG, GFR #### [address] [address] Eosinophils/100 WBC (Bld) 0.1 % Normal 0.0-7.0 [facility] ([place] Comment on above: Performed By: #### A DIFF, ANEU, CMP, CBC, MG, GFR #### [address] [address] Lymphocyte, Absolute 0.7 10 3/mcL Low 0.8-3.9 Counts include 234 beds at the [facility] ([place]) Comment on above: Performed By: #### A DIFF, ANEU, CMP, CBC, MG, GFR #### [address] [address] Lymphocytes/100 WBC (Bld) 19.2 % Normal 10.0-50.0 [facility] ([place] Comment on above: Performed By: #### A DIFF, ANEU, CMP, CBC, MG, GFR #### [address] [address] Monocyte, Absolute 0.3 10 3/mcL Normal 0.2-1.0 [facility] ([place]) Comment on above: Performed By: #### A DIFF, ANEU, CMP, CBC, MG, GFR #### [address] [address] Monocytes/100 WBC (Bld) 7.0 % Normal 1.7-13.0 [facility] ([place] Comment on above: Performed By: #### A DIFF, ANEU, CMP, CBC, MG, GFR #### [address] [address] Neutrophils/100 WBC (Bld) 73.1 % Normal 37.0-80.0 [facility] ([place] Comment on above: Performed By: #### A DIFF, ANEU, CMP, CBC, MG, GFR #### [address] [address] .GFRon 11-09-2023 GFR Non- 67 ml/min/1.73sqm Normal [facility] ([place] Comment on above: Result Comment: GFR Population mean for , Non- Americans Ages 20-29 = 116 mL/min/1.73 sq.m. Ages 30-39 = 107 mL/min/1.73 sq.m. Ages 40-49 = 99 mL/min/1.73 sq.m. Ages 50-59 = 93 mL/min/1.73 sq.m. Ages 60-69 = 85 mL/min/1.73 sq.m. Ages 70+ = 75 mL/min/1.73 sq.m. Chronic Kidney Disease: Less than 60 mL/min/1.73 square meters End Stage Renal Disease: Less than 15 mL/min/1.73 square meters Performed By: #### A DIFF, ANEU, CMP, CBC, MG, GFR #### [address] [address] GFR 81 ml/min/1.73sqm Normal [facility] ([place] Comment on above: Result Comment: GFR Population mean for , Non- Americans Ages 20-29 = 116 mL/min/1.73 sq.m. Ages 30-39 = 107 mL/min/1.73 sq.m. Ages 40-49 = 99 mL/min/1.73 sq.m. Ages 50-59 = 93 mL/min/1.73 sq.m. Ages 60-69 = 85 mL/min/1.73 sq.m. Ages 70+ = 75 mL/min/1.73 sq.m. Chronic Kidney Disease: Less than 60 mL/min/1.73 square meters End Stage Renal Disease: Less than 15 mL/min/1.73 square meters Performed By: #### A DIFF, ANEU, CMP, CBC, MG, GFR #### [place] [id number] .NEUABSon 11-09-2023 Neutrophil, Absolute 2.8 10 3/mcL Low 2.9-6.2 Counts include 234 beds at the [facility] ([place]) Comment on above: Performed By: #### A DIFF, ANEU, CMP, CBC, MG, GFR #### [place] [address] CBCon 11-09-2023 Erythrocyte distribution width (RBC) [Ratio] 14.5 % Normal 11.5-14.5 [facility] ([place]) Comment on above: Performed By: #### A DIFF, ANEU, CMP, CBC, MG, GFR #### [place] [address] Hematocrit (Bld) [Volume fraction] 40.4 % Low 42.0-52.0 [facility] ([place]) Comment on above: Performed By: #### A DIFF, ANEU, CMP, CBC, MG, GFR #### [place] [address] Hgb 13.4 G/dL Low 14.0-18.0 [facility] ([place]) Comment on above: Performed By: #### A DIFF, ANEU, CMP, CBC, MG, GFR #### [place] [address] MCH (RBC) [Entitic mass] 31.5 pg High 27.0-31.2 [facility] ([place]) Comment on above: Performed By: #### A DIFF, ANEU, CMP, CBC, MG, GFR #### [place] [address] MCHC 33.2 G/dL Normal 31.8-35.4 [facility] ([place]) Comment on above: Performed By: #### A DIFF, ANEU, CMP, CBC, MG, GFR #### [place] [address] MCV (RBC) [Entitic vol] 94.8 fL High 80.0-94.0 [facility] ([place] Comment on above: Performed By: #### A DIFF, ANEU, CMP, CBC, MG, GFR #### [address] [address] Platelet 94 10 3/mcL Low 130-400 [facility] ([place] Comment on above: Performed By: #### A DIFF, ANEU, CMP, CBC, MG, GFR #### [address] [address] Platelet mean volume (Bld) [Entitic vol] 8.1 fL Normal 7.4-10.4 [facility] ([place] Comment on above: Performed By: #### A DIFF, ANEU, CMP, CBC, MG, GFR #### [address] [address] RBC 4.26 10 6/mcL Normal 4.04-6.13 [facility] ([place] Comment on above: Performed By: #### A DIFF, ANEU, CMP, CBC, MG, GFR #### [address] [address] WBC 3.9 10 3/mcL Low 4.6-10.8 [facility] ([place] Comment on above: Performed By: #### A DIFF, ANEU, CMP, CBC, MG, GFR #### [address] [address] CMPon 11-09-2023 Albumin Level 2.9 G/dL Low 3.4-4.8 [facility] ([place] Comment on above: Performed By: #### A DIFF, ANEU, CMP, CBC, MG, GFR #### [address] [address] Albumin/Globulin [Mass ratio] 1.1 {ratio} Normal 1.1-2.5 [facility] ([place] Comment on above: Performed By: #### A DIFF, ANEU, CMP, CBC, MG, GFR #### [address] [address] ALP [Catalytic activity/Vol] 96 U/L Normal 40-135 [facility] ([place] Comment on above: Performed By: #### A DIFF, ANEU, CMP, CBC, MG, GFR #### [address] [address] ALT [Catalytic activity/Vol] 51 U/L Normal 16-63 [facility] ([place] Comment on above: Performed By: #### A DIFF, ANEU, CMP, CBC, MG, GFR #### [address] [address] AST [Catalytic activity/Vol] 123 U/L High 10-40 [facility] ([place] Comment on above: Performed By: #### A DIFF, ANEU, CMP, CBC, MG, GFR #### [address] [address] Bili Total 0.8 mg/dL Normal 0.2-1.0 [facility] ([place] Comment on above: Result Comment: Use of this assay is not recommended for patients undergoing treatment with eltrombopag due to the potential for falsely elevated results. Performed By: #### A DIFF, ANEU, CMP, CBC, MG, GFR #### [address] [address] BUN/Creatinine Ratio 18 ratio Normal 7-27 [facility] ([place] Comment on above: Performed By: #### A DIFF, ANEU, CMP, CBC, MG, GFR #### [address] [address] Calcium [Mass/Vol] 7.8 mg/dL Low 8.4-10.2 [facility] ([place] Comment on above: Performed By: #### A DIFF, ANEU, CMP, CBC, MG, GFR #### [address] [address] Chloride [Moles/Vol] 105 mmol/L Normal 98-107 [facility] ([place] Comment on above: Performed By: #### A DIFF, ANEU, CMP, CBC, MG, GFR #### [address] [address] CO2 [Moles/Vol] 24 mmol/L Normal 23-31 [facility] [place] Comment on above: Performed By: #### A DIFF, ANEU, CMP, CBC, MG, GFR #### [address] [address] Creatinine [Mass/Vol] 1.07 mg/dL Normal 0.70-1.30 [facility] ([place] Comment on above: Performed By: #### A DIFF, ANEU, CMP, CBC, MG, GFR #### [address] [address] Electrolyte Balance 9.0 mEq/L Normal 4.0-15.0 [facility] ([place]) Comment on above: Performed By: #### A DIFF, ANEU, CMP, CBC, MG, GFR #### [address] [address] Globulin 2.6 G/dL Normal [facility] ([place] Comment on above: Performed By: #### A DIFF, ANEU, CMP, CBC, MG, GFR #### [address] [address] Glucose [Mass/Vol] 131 mg/dL High 83-110 [facility] ([place] Comment on above: Performed By: #### A DIFF, ANEU, CMP, CBC, MG, GFR #### [address] [address] Potassium [Moles/Vol] 3.9 mmol/L Normal 3.5-5.1 [facility] ([place] Comment on above: Performed By: #### A DIFF, ANEU, CMP, CBC, MG, GFR #### [address] [address] Sodium [Moles/Vol] 138 mmol/L Normal 136-145 [facility] ([place] Comment on above: Performed By: #### A DIFF, ANEU, CMP, CBC, MG, GFR #### [address] [address] Total Protein 5.5 G/dL Low 6.4-8.2 [facility] ([place] Comment on above: Performed By: #### A DIFF, ANEU, CMP, CBC, MG, GFR #### [facility] [address] [place], [place] [address] Urea nitrogen [Mass/Vol] 19 mg/dL High 7-18 [facility] ([place] Comment on above: Performed By: #### A DIFF, ANEU, CMP, CBC, MG, GFR #### [facility] [address] [place], [place] [address] LABORATORYOrdered By: SYSTEM SYSTEM on 11-09-2023 Albumin BCP dye [Mass/Vol] 2.9 G/dL Low 3.4 - 4.8 G/dL AO ADM SS Albumin/Globulin [Mass ratio] 1.1 {ratio} Normal 1.1 - 2.5 ratio AO ADM SS ALP [Catalytic activity/Vol] 96 U/L Normal 40 - 135 U/L AO ADM SS ALT With P-5'-P [Catalytic activity/Vol] 51 U/L Normal 16 - 63 U/L AO ADM SS AST With P-5'-P [Catalytic activity/Vol] 123 U/L High 10 - 40 U/L AO ADM SS Basophil, Absolute 0.0 103/mcL Normal 0.0 - 0.2 10^3/mcL AO Workflow SS Basophils/100 WBC (Bld) 0.6 % Normal 0.0 - 2.5 % AO Workflow SS Bilirubin [Mass/Vol] 0.8 mg/dL Normal 0.2 - 1 .0 mg/dL AO ADM SS Comment on above: Interpretive Data: U se of this assay is not recommended for patients undergoing treatment with eltrombopag due to the potential for falsely elevated results. Calcium [Mass/Vol] 7.8 mg/dL Low 8.4 - 10. 2 mg/dL AO ADM SS Chloride [Moles/Vol] 105 mmol/L Normal 98 - 10 7 mmol/L AO ADM SS CO2 [Moles/Vol] 24 mmol/L Normal 23 - 31 mmol/L AO ADM SS Creatinine [Mass/Vol] 1.07 mg/dL Normal 0.70 - 1.30 mg/dL AO ADM SS Electrolyte Balance 9.0 mEq/L Normal 4.0 - 15 .0 mEq/L AO ADM SS Eosinophil, Absolute 0.0 103/mcL Normal 0.0 - 0 .4 10^3/mcL AO Workflow SS Eosinophils/100 WBC (Bld) 0.1 % Normal 0.0 - 7.0 % AO Workflow SS Erythrocyte distribution width (RBC) [Ratio] 14.5 % Normal 11.5 - 14.5 % AO Workflow SS GFR/1.73 sq M.predicted among blacks MDRD (S/P/Bld) [Vol rate/Area] 81 ml/min/1.73sqm Invalid Interpretation Code AO Chemistry S Comment on above: Interpretive Data: GFR Population mean for , Non- Americans Ages 20-29 = 116 mL/min/1.73 sq.m. Ages 30-39 = 107 mL/min/1.73 sq.m. Ages 40-49 = 99 mL/min/1.73 sq.m. Ages 50-59 = 93 mL/min/1.73 sq.m. Ages 60-69 = 85 mL/min/1.73 sq.m. Ages 70+ = 75 mL/min/1.73 sq.m. Chronic Kidney Disease: Less than 60 mL/min/1.73 square meters End Stage Renal Disease: Less than 15 mL/min/1.73 square meters GFR/1.73 sq M.predicted among non-blacks MDRD (S/P/Bld) [Vol rate/Area] 67 ml/min/1.73sqm Invalid Interpretation Code AO Chemistry S Comment on above: Interpretive Data: GFR Population mean for , Non- Americans Ages 20-29 = 116 mL/min/1.73 sq.m. Ages 30-39 = 107 mL/min/1.73 sq.m. Ages 40-49 = 99 mL/min/1.73 sq.m. Ages 50-59 = 93 mL/min/1.73 sq.m. Ages 60-69 = 85 mL/min/1.73 sq.m. Ages 70+ = 75 mL/min/1.73 sq.m. Chronic Kidney Disease: Less than 60 mL/min/1.73 square meters End Stage Renal Disease: Less than 15 mL/min/1.73 square meters Globulin 2.6 G/dL Invalid Interpretation Code AO ADM SS Glucose [Mass/Vol] 131 mg/dL High 83 - 110 mg/dL AO ADM SS Hematocrit (Bld) [Volume fraction] 40.4 % Low 42.0 - 52.0 % AO Workflow SS Hemoglobin (Bld) [Mass/Vol] 13.4 G/dL Low 14.0 - 18.0 G/dL AO Workflow SS Lymphocyte, Absolute 0.7 103/mcL Low 0.8 - 3 .9 10^3/mcL AO Workflow SS Lymphocytes/100 WBC (Bld) 19.2 % Normal 10.0 - 50.0 % AO Workflow SS Magnesium [Mass/Vol] 2.1 mg/dL Normal 1.8 - 2 .4 mg/dL AO ADM SS MCH (RBC) [Entitic mass] 31.5 pg High 27.0 - 31.2 pg AO Workflow SS MCHC 33.2 G/dL Normal 31.8 - 35.4 G/dL AO Workflow SS MCV (RBC) [Entitic vol] 94.8 fL High 80.0 - 94.0 fL AO Workflow SS Monocyte, Absolute 0.3 103/mcL Normal 0.2 - 1.0 10^3/mcL AO Workflow SS Monocytes/100 WBC (Bld) 7.0 % Normal 1.7 - 13.0 % AO Workflow SS Neutrophil, Absolute 2.8 103/mcL Low 2.9 - 6 .2 10^3/mcL AO Workflow SS Neutrophils/100 WBC (Bld) 73.1 % Normal 37.0 - 80.0 % AO Workflow SS Platelet mean volume (Bld) [Entitic vol] 8.1 fL Normal 7.4 - 10.4 fL AO Workflow SS Platelets (Bld) [#/Vol] 94 103/mcL Low 130 - 400 10^3/mcL AO Workflow SS Potassium [Moles/Vol] 3.9 mmol/L Normal 3.5 - 5.1 mmol/L AO ADM SS Protein [Mass/Vol] 5.5 G/dL Low 6.4 - 8.2 G/dL AO ADM SS RBC (Bld) [#/Vol] 4.26 106/mcL Normal 4.04 - 6.1 3 10^6/mcL AO Workflow SS Sodium [Moles/Vol] 138 mmol/L Normal 136 - 145 mmol/L AO ADM SS Urea nitrogen [Mass/Vol] 19 mg/dL High 7 - 18 mg/dL AO ADM SS Urea nitrogen/Creatinine [Mass ratio] 18 ratio Normal 7 - 27 ratio AO ADM SS WBC (Bld) [#/Vol] 3.9 103/mcL Low 4.6 - 10.8 10^3/mcL AO Workflow SS MGon 11-09-2023 Magnesium [Mass/Vol] 2.1 mg/dL Normal 1.8-2.4 [facility] ([place] Comment on above: Performed By: #### A DIFF, ANEU, CMP, CBC, MG, GFR #### [address] [address] MRSAPCRon 11-09-2023 MRSA (PCR) Not detected Normal Not Detected [facility] ([place] Comment on above: Result Comment: [place] [id number] Performed By: #### A DIFF, ANEU, CMP, CBC, MG, GFR #### [address] [address] MRSA PCR Int Normal [facility] ([place] Comment on above: Result Comment: MRSA DNA not detected by Real-Time Polymerase Chain Reaction (PCR). A negative result may be due to intermittent colonization. Colonization may vary depending on patient treatment, patient status, or exposure to high-risk environments. As with all PCR based in vitro diagnostic tests, extremely low levels of target below the limit of detection of the assay may be detected, but results may not be reproducible. See Below Performed By: #### A DIFF, ANEU, CMP, CBC, MG, GFR #### [address] [address] RESCVIDon 11-09-2023 Adenovirus Not detected Normal Not Detected [facility] ([place] Comment on above: Performed By: #### R ESCVID #### [address] [address] Bordetella Parapertussis Not detected Normal Not Detected [facility] ([place] Comment on above: Performed By: #### R ESCVID #### [address] [address] Bordetella Pertussis Not detected Normal Not Detected [facility] ([place] Comment on above: Performed By: #### R ESCVID #### [address] [address] Chlamydophila pneumoniae Not detected Normal Not Detected [facility] ([place] Comment on above: Performed By: #### R ESCVID #### [facility] [address] [place] [address] Coronavirus 229E (Not COVID-19) Not detected Normal Not Detected [facility] ([place]) Comment on above: Performed By: #### R ESCVID #### [facility] [address] [place] [address] Coronavirus HKU1 (Not COVID-19) Not detected Normal Not Detected [facility] ([place] Comment on above: Performed By: #### R ESCVID #### [facility] [address] [place] [address] Coronavirus NL63 (Not COVID-19) Not detected Normal Not Detected [facility] ([place] Comment on above: Performed By: #### R ESCVID #### [facility] [address] [place] [address] Coronavirus OC43 (Not COVID-19) Not detected Normal Not Detected [facility] ([place] Comment on above: Performed By: #### R ESCVID #### [facility] [address] [place] [address] Human Metapneumovirus Not detected Normal Not Detected [facility] ([place] Comment on above: Performed By: #### R ESCVID #### [facility] [address] [place] [address] Influenza A Not detected Normal Not Detected [facility] ([place] Comment on above: Performed By: #### R ESCVID #### [facility] [address] [place] [address] Influenza B Not detected Normal Not Detected [facility] ([place] Comment on above: Performed By: #### R ESCVID #### [facility] [address] [place] [address] Mycoplasma pneumoniae Not detected Normal Not Detected [facility] ([place] Comment on above: Performed By: #### R ESCVID #### [facility] [address] [place] [address] Parainfluenza 1 Not detected Normal Not Detected [facility] ([place]) Comment on above: Performed By: #### R ESCVID #### [facility] [address] [place] [address] Parainfluenza 2 Not detected Normal Not Detected [facility] ([place] Comment on above: Performed By: #### R ESCVID #### [facility] [address] [place] [address] Parainfluenza 3 Not detected Normal Not Detected [facility] ([place]) Comment on above: Performed By: #### R ESCVID #### [facility] [address] [place] [address] Parainfluenza 4 Not detected Normal Not Detected [facility] ([place]) Comment on above: Performed By: #### R ESCVID #### [facility] [address] [place] [address] Respiratory Syncytial Virus Not detected Normal Not Detected [facility] ([place] Comment on above: Performed By: #### R ESCVID #### [facility] [address] [place] [address] Rhinovirus/Enteroviru s Not detected Normal Not Detected [facility] ([place]) Comment on above: Performed By: #### R ESCVID #### [facility] [address] [place] [address] SARS-CoV-2 (COVID-19) RNA JEANNETTE+probe Ql (Unsp spec) Not detected Normal Not Detected [facility] ([place]) Comment on above: Result Comment: This assay has been validated in the [facility] for use with nasopharyngeal specimens in [facility]. If a non-validated specimen or test collection method was used, please interpret the results with caution, especially if the test result is negative. A positive test result for COVID-19 indicates that RNA from SARS-CoV-2 was detected, and the patient is infected with the virus and presumed to be contagious. Laboratory test results should always be considered in the context of clinical observations and epidemiological data in making a final diagnosis and patient management decisions. Patient management should follow current CDC guidelines. A negative test result for this test means that SARS-CoV-2 RNA was not present in the specimen above the limit of detection. However, a negative result does not rule out COVID-19 and should not be used as the sole basis for treatment or patient management decisions. A negative result does not exclude the possibility of COVID-19. When diagnostic testing is negative, the possibility of a false negative result should be considered in the context of a patient's recent exposures and the presence of clinical signs and symptoms consistent with COVID-19. The possibility of a false negative result should especially be considered if the patient?s recent exposures or clinical presentation indicate that COVID-19 is likely, and diagnostic tests for other causes of illness (e.g., other respiratory illness) are negative. If COVID-19 is still suspected based on exposure history together with other clinical findings, re-testing should be considered by healthcare providers in consultation with public health authorities. Performed By: #### R ESCVID #### [place] [address] .Auto Diffon 11-08-2023 Basophil, Absolute 0.0 10 3/mcL Normal 0.0-0.2 [facility] ([place] Comment on above: Performed By: #### L AC #### [address] [address] Basophils/100 WBC (Bld) 0.2 % Normal 0.0-2.5 [facility] ([place]) Comment on above: Performed By: #### L AC #### [address] [address] Eosinophil, Absolute 0.0 10 3/mcL Normal 0.0-0.4 Counts include 234 beds at the [facility] ([place] Comment on above: Performed By: #### L AC #### [address] [address] Eosinophils/100 WBC (Bld) 0.1 % Normal 0.0-7.0 [facility] ([place] Comment on above: Performed By: #### L AC #### [address] [address] Lymphocyte, Absolute 0.9 10 3/mcL Normal 0.8-3.9 Counts include 234 beds at the [facility] ([place]) Comment on above: Performed By: #### L AC #### [address] [address] Lymphocytes/100 WBC (Bld) 16.5 % Normal 10.0-50.0 [facility] ([place] Comment on above: Performed By: #### L AC #### [address] [address] Monocyte, Absolute 0.4 10 3/mcL Normal 0.2-1.0 [facility] ([place] Comment on above: Performed By: #### L AC #### [address] [address] Monocytes/100 WBC (Bld) 7.0 % Normal 1.7-13.0 [facility] ([place] Comment on above: Performed By: #### L AC #### [address] [address] Neutrophils/100 WBC (Bld) 76.2 % Normal 37.0-80.0 [facility] ([place] Comment on above: Performed By: #### L AC #### [address] [address] .GFRon 11-08-2023 GFR 72 ml/min/1.73sqm Normal [facility] ([place] Comment on above: Result Comment: GFR Population mean for , Non- Americans Ages 20-29 = 116 mL/min/1.73 sq.m. Ages 30-39 = 107 mL/min/1.73 sq.m. Ages 40-49 = 99 mL/min/1.73 sq.m. Ages 50-59 = 93 mL/min/1.73 sq.m. Ages 60-69 = 85 mL/min/1.73 sq.m. Ages 70+ = 75 mL/min/1.73 sq.m. Chronic Kidney Disease: Less than 60 mL/min/1.73 square meters End Stage Renal Disease: Less than 15 mL/min/1.73 square meters Performed By: #### L AC #### [address] [address] GFR Non- 60 ml/min/1.73sqm Normal [facility] ([place] Comment on above: Result Comment: GFR Population mean for , Non- Americans Ages 20-29 = 116 mL/min/1.73 sq.m. Ages 30-39 = 107 mL/min/1.73 sq.m. Ages 40-49 = 99 mL/min/1.73 sq.m. Ages 50-59 = 93 mL/min/1.73 sq.m. Ages 60-69 = 85 mL/min/1.73 sq.m. Ages 70+ = 75 mL/min/1.73 sq.m. Chronic Kidney Disease: Less than 60 mL/min/1.73 square meters End Stage Renal Disease: Less than 15 mL/min/1.73 square meters Performed By: #### L AC #### [place] [address] .MDWon 11-08-2023 Monocyte Distribution Width 27.13 High 0.00-20.00 [facility] ([place] Comment on above: Result Comment: For adults in ED, MDW>20.0 may be associated with a higher risk of sepsis during the first 12hrs of hospital admission Performed By: #### L AC #### [place] [address] .NEUABSon 11-08-2023 Neutrophil, Absolute 4.4 10 3/mcL Normal 2.9-6.2 Counts include 234 beds at the [facility] ([place] Comment on above: Performed By: #### L AC #### [place] [address] .Urinalysis Microscopic (AO) on 11-08-2023 UA RBC 0-5 Abnormal None Seen [facility] [place] Comment on above: Performed By: #### A DIFF, ANEU, CMP, CBC, MG, GFR #### [place] [address] UA Squam Epithelial 0-5 Abnormal None Seen [facility] ([place] Comment on above: Performed By: #### A DIFF, ANEU, CMP, CBC, MG, GFR #### [place] [address] UA WBC None Seen Normal None Seen [facility] [place] Comment on above: Performed By: #### A DIFF, ANEU, CMP, CBC, MG, GFR #### [address] [address] CBCon 11-08-2023 Erythrocyte distribution width (RBC) [Ratio] 14.3 % Normal 11.5-14.5 [facility] ([place] Comment on above: Performed By: #### P BNP, LAC, ANEU, ADIFF, GFR, CMP, CBC, PRO, MDW #### [address] [address] Hematocrit (Bld) [Volume fraction] 45.6 % Normal 42.0-52.0 [facility] ([place] Comment on above: Performed By: #### P BNP, LAC, ANEU, ADIFF, GFR, CMP, CBC, PRO, MDW #### [place] [address] Hgb 15.0 G/dL Normal 14.0-18.0 [facility] ([place] Comment on above: Performed By: #### P BNP, LAC, ANEU, ADIFF, GFR, CMP, CBC, PRO, MDW #### [place] [address] MCH (RBC) [Entitic mass] 30.9 pg Normal 27.0-31.2 [facility] ([place] Comment on above: Performed By: #### P BNP, LAC, ANEU, ADIFF, GFR, CMP, CBC, PRO, MDW #### [address] [address] MCHC 33.0 G/dL Normal 31.8-35.4 [facility] ([place] Comment on above: Performed By: #### P BNP, LAC, ANEU, ADIFF, GFR, CMP, CBC, PRO, MDW #### [address] [address] MCV (RBC) [Entitic vol] 93.8 fL Normal 80.0-94.0 [facility] [place] Comment on above: Performed By: #### P BNP, LAC, ANEU, ADIFF, GFR, CMP, CBC, PRO, MDW #### [place] [address] Platelet 111 10 3/mcL Low 130-400 [facility] ([place] Comment on above: Performed By: #### P BNP, LAC, ANEU, ADIFF, GFR, CMP, CBC, PRO, MDW #### [address] [address] Platelet mean volume (Bld) [Entitic vol] 8.3 fL Normal 7.4-10.4 [facility] [place] Comment on above: Performed By: #### P BNP, LAC, ANEU, ADIFF, GFR, CMP, CBC, PRO, MDW #### [address] [address] RBC 4.86 10 6/mcL Normal 4.04-6.13 [facility] ([place] Comment on above: Performed By: #### P BNP, LAC, ANEU, ADIFF, GFR, CMP, CBC, PRO, MDW #### [address] [address] WBC 5.7 10 3/mcL Normal 4.6-10.8 [facility]) Comment on above: Performed By: #### P BNP, LAC, ANEU, ADIFF, GFR, CMP, CBC, PRO, MDJovanni #### [address] [address] CMPon 11-08-2023 Albumin Level 3.5 G/dL Normal 3.4-4.8 [facility]) Comment on above: Performed By: #### L AC #### [address] [address] Albumin/Globulin [Mass ratio] 1.1 {ratio} Normal 1.1-2.5 [facility]) Comment on above: Performed By: #### L AC #### [address] [address] ALP [Catalytic activity/Vol] 117 U/L Normal 40-135 [facility]) Comment on above: Performed By: #### L AC #### [address] [address] ALT [Catalytic activity/Vol] 34 U/L Normal 16-63 [facility] ([place] Comment on above: Performed By: #### L AC #### [address] [address] AST [Catalytic activity/Vol] 102 U/L High 10-40 [facility] ([place] Comment on above: Performed By: #### L AC #### [address] [address] Bili Total 1.0 mg/dL Normal 0.2-1.0 [facility] ([place] Comment on above: Result Comment: Use of this assay is not recommended for patients undergoing treatment with eltrombopag due to the potential for falsely elevated results. Performed By: #### L AC #### [address] [address] BUN/Creatinine Ratio 17 ratio Normal 7-27 [facility] ([place] Comment on above: Performed By: #### L AC #### [address] [address] Calcium [Mass/Vol] 8.5 mg/dL Normal 8.4-10.2 [facility] ([place] Comment on above: Performed By: #### L AC #### [address] [address] Chloride [Moles/Vol] 100 mmol/L Normal 98-107 [facility] ([place] Comment on above: Performed By: #### L AC #### [address] [address] CO2 [Moles/Vol] 23 mmol/L Normal 23-31 [facility] ([place] Comment on above: Performed By: #### L AC #### [address] [address] Creatinine [Mass/Vol] 1.18 mg/dL Normal 0.70-1.30 [facility] ([place] Comment on above: Performed By: #### L AC #### [address] [address] Electrolyte Balance 13.0 mEq/L Normal 4.0-15.0 [facility] ([place] Comment on above: Performed By: #### L AC #### [address] [address] Globulin 3.1 G/dL Normal [facility] ([place] Comment on above: Performed By: #### L AC #### [address] [address] Glucose [Mass/Vol] 198 mg/dL High 83-110 [facility] ([place] Comment on above: Performed By: #### L AC #### [address] [address] Potassium [Moles/Vol] 4.3 mmol/L Normal 3.5-5.1 [facility] ([place] Comment on above: Performed By: #### L AC #### [address] [address] Sodium [Moles/Vol] 136 mmol/L Normal 136-145 [facility] ([place] Comment on above: Performed By: #### L AC #### [address] [address] Total Protein 6.6 G/dL Normal 6.4-8.2 [facility] ([place] Comment on above: Performed By: #### L AC #### [address] [address] Urea nitrogen [Mass/Vol] 20 mg/dL High 7-18 [facility] ([place] Comment on above: Performed By: #### L AC #### [address] [address] [address] HEAD OR BRAIN W/O CONTRAS Ton 11-08-2023 CT HEAD OR BRAIN W/O CONTRAST ORIGINAL EXAMINATION: CT OF THE HEAD WITHOUT CONTRAST11/08/2023 7:[address] HEAD/BRAIN WITHOUT CONTRAST EXAM DESCRIPTION: TECHNIQUE: CT of the head was performed without the administration of intravenous contrast. Automated exposure control, iterative reconstruction, and/or weight based adjustment of the mA/kV was utilized to reduce the radiation dose to as low as reasonably achievable. COMPARISON: None available HISTORY: ORDERING SYSTEM PROVIDED HISTORY: Reason for Exam: headache; altered LOC; suspect abscess FINDINGS: There is no evidence of mass, midline shift, hemorrhage, or infarct. Although the brain morphology appears normal, the ventricles, cortical sulci, and subarachnoid cisterns appear prominent. There are no extra-axial fluid collections. No regions of pathologic attenuation are evident. Decreased density periventricular white matter. Regions of the orbits and paranasal sinuses included within the field of view are unremarkable. There is no displaced fracture or osseous neoplasm. The extracalvarial soft tissues appear unremarkable. IMPRESSION: 1. No acute intracranial pathology. 2. Prominent CSF spaces usually indicate volume loss/atrophy as a manifestation of mild chronic white matter ischemia. COMMENT: Changes resultant from ischemia (even significant ischemia) may often be inapparent on CT exam, particularly if imaged early. Additionally, early changes due to neoplastic or inflammatory processes can be subtle to the extent that they are not prospectively noted. Therefore, if symptoms persist, or clinical suspicion for pathology remains, further evaluation may be obtained with MRI. Interpreted by: Caesar Manning MD Preliminary Report By: Caesar Manning MD Electronically signed By Caesar Manning MD Dictated Date: 11/08/2023 7:30:56 PM Prelim Date: 11/08/2023 7:31:39 PM Sign Date: 11/08/2023 7:31:39 PM Ordering Provider: NIURKA BUTLER Normal [facility]) CVFLURVon 11-08-2023 FLU A PCR Negative Normal Negative [facility]) Comment on above: Performed By: #### A DIFF, ANEU, CMP, CBC, MG, GFR #### [address] [address] FLU B PCR Negative Normal Negative [facility]) Comment on above: Performed By: #### A DIFF, ANEU, CMP, CBC, MG, GFR #### [address] [address] RSV PCR Negative Normal Negative [facility]) Comment on above: Performed By: #### A DIFF, ANEU, CMP, CBC, MG, GFR #### [address] [address] SARS-CoV-2 (COVID-19) RNA JEANNETTE+probe Ql (Unsp spec) Negative Normal Negative [facility] ([place]) Comment on above: Result Comment: Resu lts from the Xpert Xpress CoV-2/Flu/RSV plus test should be correlated with the clinical history, epidemiological data, and other data available to the clinical evaluating the patient. Performance of the Xpert Xpress CoV-2/Flu/RSV plus test has only been established in nasopharyngeal swab specimen. Erroneous test results might occur from improper specimen collection, failure to follow the recommended sample collection, handling and storage procedures, technical error, or sample mix-up. False negative results may occur if a virus is present at a level below the analytical limit of detection. Viral nucleic acid may persist in vivo, independent of virus viability. Detection of analyte target(s) does not imply that the corresponding virus(es) are infectious or are the causative agents for clinical symptoms. Recent patient exposure to FluMist or other live attenuated influenza vaccines may cause inaccurate positive results. Performed By: #### A DIFF, ANEU, CMP, CBC, MG, GFR #### [place] [address] LABORATORYOrdered By: SYSTEM SYSTEM on 11-08-2023 Lactate [Moles/Vol] 1.6 mmol/L Normal 0.4 - 2. 0 mmol/L AO ADM SS Basophil, Absolute 0.0 103/mcL Normal 0.0 - 0.2 10^3/mcL AO Workflow SS Basophils/100 WBC (Bld) 0.2 % Normal 0.0 - 2.5 % AO Workflow SS Eosinophil, Absolute 0.0 103/mcL Normal 0.0 - 0 .4 10^3/mcL AO Workflow SS Eosinophils/100 WBC (Bld) 0.1 % Normal 0.0 - 7.0 % AO Workflow SS Erythrocyte distribution width (RBC) [Ratio] 14.3 % Normal 11.5 - 14.5 % AO Workflow SS Hematocrit (Bld) [Volume fraction] 45.6 % Normal 42.0 - 52.0 % AO Workflow SS Hemoglobin (Bld) [Mass/Vol] 15.0 G/dL Normal 14.0 - 18.0 G/dL AO Workflow SS Lactate [Moles/Vol] 2.8 mmol/L High 0.4 - 2. 0 mmol/L AO ADM SS Lymphocyte, Absolute 0.9 103/mcL Normal 0.8 - 3 .9 10^3/mcL AO Workflow SS Lymphocytes/100 WBC (Bld) 16.5 % Normal 10.0 - 50.0 % AO Workflow SS MCH (RBC) [Entitic mass] 30.9 pg Normal 27.0 - 31.2 pg AO Workflow SS MCHC 33.0 G/dL Normal 31.8 - 35.4 G/dL AO Workflow SS MCV (RBC) [Entitic vol] 93.8 fL Normal 80.0 - 94.0 fL AO Workflow SS Monocyte distribution width Auto (Bld) [Entitic vol] 27.13 1 High 0.00 - 20.00 AO Workflow SS Comment on above: Result Comment: For adults in ED, MDW>20.0 may be associated with a higher risk of sepsis during the first 12hrs of hospital admission Monocyte, Absolute 0.4 103/mcL Normal 0.2 - 1.0 10^3/mcL AO Workflow SS Monocytes/100 WBC (Bld) 7.0 % Normal 1.7 - 13.0 % AO Workflow SS Natriuretic peptide.B prohormone N-Terminal [Mass/Vol] 1411 pg/mL High 0 - 450 pg/mL AO ADM SS Comment on above: Interpretive Data: N T-proBNP results of less than 300 pg/mL effectively rules out acute congestive heart failure with 99% negative predictive value. Neutrophil, Absolute 4.4 103/mcL Normal 2.9 - 6 .2 10^3/mcL AO Workflow SS Neutrophils/100 WBC (Bld) 76.2 % Normal 37.0 - 80.0 % AO Workflow SS Platelet mean volume (Bld) [Entitic vol] 8.3 fL Normal 7.4 - 10.4 fL AO Workflow SS Platelets (Bld) [#/Vol] 111 103/mcL Low 130 - 400 10^3/mcL AO Workflow SS RBC (Bld) [#/Vol] 4.86 106/mcL Normal 4.04 - 6.1 3 10^6/mcL AO Workflow SS WBC (Bld) [#/Vol] 5.7 103/mcL Normal 4.6 - 10.8 10^3/mcL AO Workflow SS LABORATORYOrdered By: Shannon Chase on 11-08-2023 MRSA (PCR) Not Detected 1 (11/08/23 6:45 PM) Normal Not Detected AH Auto Viro/Sero SS Comment on above: Result Comment: [place] [id number] MRSA PCR Int MRSA DNA not detecte d by Real-Time Polymerase Chain Reaction (PCR). A negative result may be due to intermittent colonization. Colonization may vary depending on patient treatment, patient status, or exposure to high-risk environments.As with all PCR based in vitro diagnostic tests, extremely low levels of target below the limit of detection of the assay may be detected, but results may not be reproducible. Invalid Interpretation Code AH Auto Viro/Sero SS Adenovirus DNA JEANNETTE+non-probe Ql (Nph) Not Detected *NA* (11/08/23 6:31 PM) Invalid Interpretation Code Not Detected AH Auto Viro/Sero SS B. parapertussis [id number] DNA JEANNETTE+non-probe Ql (Nph) Not Detected *NA* (11/08/23 6:31 PM) Invalid Interpretation Code Not Detected AH Auto Viro/Sero SS B. pertussis toxin promoter region JEANNETTE+non-probe Ql (Nph) Not Detected *NA* (11/08/23 6:31 PM) Invalid Interpretation Code Not Detected AH Auto Viro/Sero SS C. pneumoniae DNA JEANNETTE+non-probe Ql (Nph) Not Detected *NA* (11/08/23 6:31 PM) Invalid Interpretation Code Not Detected AH Auto Viro/Sero SS FLUAV RNA JEANNETTE+non-probe Ql (Nph) Not Detected *NA* (11/08/23 6:31 PM) Invalid Interpretation Code Not Detected AH Auto Viro/Sero SS FLUBV RNA JEANNETTE+non-probe Ql (Nph) Not Detected *NA* (11/08/23 6:31 PM) Invalid Interpretation Code Not Detected AH Auto Viro/Sero SS hMPV RNA JEANNETTE+non-probe Ql (Nph) Not Detected *NA* (11/08/23 6:31 PM) Invalid Interpretation Code Not Detected AH Auto Viro/Sero SS M. pneumoniae DNA JEANNETTE+non-probe Ql (Nph) Not Detected *NA* (11/08/23 6:31 PM) Invalid Interpretation Code Not Detected AH Auto Viro/Sero SS Parainfluenza virus 1 RNA JEANNETTE+non-probe Ql (Nph) Not Detected *NA* (11/08/23 6:31 PM) Invalid Interpretation Code Not Detected AH Auto Viro/Sero SS Parainfluenza virus 2 RNA JEANNETTE+non-probe Ql (Nph) Not Detected *NA* (11/08/23 6:31 PM) Invalid Interpretation Code Not Detected AH Auto Viro/Sero SS Parainfluenza virus 3 RNA JEANNETTE+non-probe Ql (Nph) Not Detected *NA* (11/08/23 6:31 PM) Invalid Interpretation Code Not Detected AH Auto Viro/Sero SS Parainfluenza virus 4 RNA JEANNETTE+non-probe Ql (Nph) Not Detected *NA* (11/08/23 6:31 PM) Invalid Interpretation Code Not Detected AH Auto Viro/Sero SS Rhinovirus+Enteroviru s RNA JEANNETTE+non-probe Ql (Nph) Not Detected *NA* (11/08/23 6:31 PM) Invalid Interpretation Code Not Detected AH Auto Viro/Sero SS RSV RNA JEANNETTE+non-probe Ql (Nph) Not Detected *NA* (11/08/23 6:31 PM) Invalid Interpretation Code Not Detected AH Auto Viro/Sero SS SARS-CoV-2 (COVID-19) RNA JEANNETTE+probe Ql (Resp) Not Detected 4 *NA* (11/08/23 6:31 PM) Invalid Interpretation Code Not Detected AH Auto Viro/Sero SS Comment on above: Interpretive Data: T his assay has been validated in the [facility] for use with nasopharyngeal specimens in [facility]. If a non-validated specimen or test collection method was used, please interpret the results with caution, especially if the test result is negative. A positive test result for COVID-19 indicates that RNA from SARS-CoV-2 was detected, and the patient is infected with the virus and presumed to be contagious. Laboratory test results should always be considered in the context of clinical observations and epidemiological data in making a final diagnosis and patient management decisions. Patient management should follow current CDC guidelines. A negative test result for this test means that SARS-CoV-2 RNA was not present in the specimen above the limit of detection. However, a negative result does not rule out COVID-19 and should not be used as the sole basis for treatment or patient management decisions. A negative result does not exclude the possibility of COVID-19. When diagnostic testing is negative, the possibility of a false negative result should be considered in the context of a patient's recent exposures and the presence of clinical signs and symptoms consistent with COVID-19. The possibility of a false negative result should especially be considered if the patient s recent exposures or clinical presentation indicate that COVID-19 is likely, and diagnostic tests for other causes of illness (e.g., other respiratory illness) are negative. If COVID-19 is still suspected based on exposure history together with other clinical findings, re-testing should be considered by healthcare providers in consultation with public health authorities. LABORATORYOrdered By: Rajeev magaña on 11-08-2023 Appearance (U) Clear (11/08/23 6:31 PM) Normal Clear AO Auto Urine SS Bilirubin Ql (U) Small *ABN* (11/08/23 6:31 PM) Invalid Interpretation Code Negative AO Auto Urine SS Color (U) Yellow (11/08/23 6:31 PM) Normal AO Auto Urine SS FLUAV RNA JEANNETTE+probe Ql (Resp) Negative (11/08/23 6:31 PM) Normal Negative AO Auto Urine SS FLUBV RNA JEANNETTE+probe Ql (Resp) Negative (11/08/23 6:31 PM) Normal Negative AO Auto Urine SS Glucose Test strip (U) [Mass/Vol] Negative Normal Negative AO Auto Urine SS Hemoglobin Auto test strip (U) [Mass/Vol] Moderate *ABN* (11/08/23 6:31 PM) Invalid Interpretation Code Negative AO Auto Urine SS INR Coag (PPP) [Relative time] 1.1 {INR} Invalid Interpretation Code AO HemoHub SS Comment on above: Interpretive Data: Juan Pablo addison [employer] [place] [employer] (CHEST, 1992, 102:312S-25S) recommended therapeutic range for oral anticoagulant therapy is: LOW RISK: Prophylaxis of venous thrombosis INR: 2.0-3.0 Treatment of pulmonary embolism 2.0-3.0 Prevention of systemic embolism 2.0-3.0 HIGH RISK: Mechanical prosthetic valves 2.5-3.5 Ketones Ql (U) Trace mg/dL Invalid Interpretation Code Negative AO Auto Urine SS PT Coag (PPP) [Time] 12.2 s Normal 9.0 - 1 4.4 seconds AO HemoHub SS RSV RNA JEANNETTE+probe Ql (Resp) Negative (11/08/23 6:31 PM) Normal Negative AO Auto Urine SS SARS-CoV-2 (COVID-19) RNA JEANNETTE+probe Ql (Resp) Negative 9 (11/08/23 6:31 PM) Normal Negative AO Auto Urine SS Comment on above: Interpretive Data: R esults from the Xpert Xpress CoV-2/Flu/RSV plus test should be correlated with the clinical history, epidemiological data, and other data available to the clinical evaluating the patient. Performance of the Xpert Xpress CoV-2/Flu/RSV plus test has only been established in nasopharyngeal swab specimen. Erroneous test results might occur from improper specimen collection, failure to follow the recommended sample collection, handling and storage procedures, technical error, or sample mix-up. False negative results may occur if a virus is present at a level below the analytical limit of detection. Viral nucleic acid may persist in vivo, independent of virus viability. Detection of analyte target(s) does not imply that the corresponding virus(es) are infectious or are the causative agents for clinical symptoms. Recent patient exposure to FluMist or other live attenuated influenza vaccines may cause inaccurate positive results. UA Leuk Est Negative (11/08/23 6:31 PM) Normal Negative AO Auto Urine SS UA Nitrite Negative (11/08/23 6:31 PM) Normal Negative AO Auto Urine SS UA pH 5.5 (11/08/23 6:31 PM) Normal 5.0 - 8.0 AO Auto Urine SS UA Protein 30 mg/dL Normal Negative AO Auto Urine SS UA RBC 0-5 /HPF Invalid Interpretation Code None Seen AO Auto Urine SS UA Spec Grav >=1.030 *ABN* (11/08/23 6:31 PM) Invalid Interpretation Code 1.015-1.025 AO Auto Urine SS UA Specimen Type Clean Catch (11/08/23 6:31 PM) Normal AO Auto Urine SS UA Squam Epithelial 0-5 /HPF Invalid Interpretation Code None Seen AO Auto Urine SS UA Urobilinogen 1.0 E.U./dL Normal 0.2-1.0 AO Auto Urine SS WBC LM.HPF (Urine sed) [#/Area] None Seen /HPF Normal None Seen AO Auto Urine SS LACon 11-08-2023 Lactic Acid Lvl 1.6 mmol/L Normal 0.4-2.0 [facility] ([place]) Comment on above: Performed By: #### L AC #### Charles [address] [address] Lactic Acid Lvl 2.8 mmol/L High 0.4-2.0 [facility] ([place]) Comment on above: Performed By: #### L AC #### [address] [address] No Panel Informationon 11-07 Legionella Urine Ag Presumptive negative for L. pneumophila serogroup 1 antigen in urine, suggesting no recent or current infection. Legionnaire's disease cannot be ruled out since other serogroups and species may also cause disease. [facility] Microscopic examination of blood, culture Culture has been received in lab and is no growth to date. Routine cultures are held for 5 days. [facility] PBNPon 11-08-2023 Natriuretic peptide B (Bld) [Mass/Vol] 1411 pg/mL High 0-450 [facility] ([place]) Comment on above: Result Comment: NT-p roBNP results of less than 300 pg/mL effectively rules out acute congestive heart failure with 99% negative predictive value. Performed By: #### L AC #### [address] [address] PROon 11-08-2023 PT Coag (PPP) [Time] 12.2 s Normal 9.0-14.4 [facility] ([place]) Comment on above: Performed By: #### L AC #### [address] [address] PT International Ratio 1.1 Normal [facility] ([place]) Comment on above: Result Comment: [employer] [place] [employer] (CHEST, 1991, 102:312S-25S) recommended therapeutic range for oral anticoagulant therapy is: LOW RISK: Prophylaxis of venous thrombosis INR: 2.0-3.0 Treatment of pulmonary embolism 2.0-3.0 Prevention of systemic embolism 2.0-3.0 HIGH RISK: Mechanical prosthetic valves 2.5-3.5 Performed By: #### L AC #### [address] [address] UAon 11-08-2023 Color (U) Yellow Normal [facility] ([place]) Comment on above: Performed By: #### A DIFF, ANEU, CMP, CBC, MG, GFR #### [address] [address] Glucose (U) [Mass/Vol] Negative Normal Negative [facility] ([place]) Comment on above: Performed By: #### A DIFF, ANEU, CMP, CBC, MG, GFR #### [address] [address] Ketones Ql (U) Trace Abnormal Negative [facility] ([place]) Comment on above: Performed By: #### A DIFF, ANEU, CMP, CBC, MG, GFR #### [address] [address] UA Appear Clear Normal Clear [facility] ([place] Comment on above: Performed By: #### A DIFF, ANEU, CMP, CBC, MG, GFR #### [address] [address] UA Bili Small Abnormal Negative [facility] ([place]) Comment on above: Performed By: #### A DIFF, ANEU, CMP, CBC, MG, GFR #### [address] [address] UA Blood Moderate Abnormal Negative [facility] ([place] Comment on above: Performed By: #### A DIFF, ANEU, CMP, CBC, MG, GFR #### [address] [address] UA Leuk Est Negative Normal Negative [facility] ([place] Comment on above: Performed By: #### A DIFF, ANEU, CMP, CBC, MG, GFR #### [address] [address] UA Nitrite Negative Normal Negative [facility] ([place] Comment on above: Performed By: #### A DIFF, ANEU, CMP, CBC, MG, GFR #### [place] [address] UA pH 5.5 Normal 5.0 - 8.0 [facility] ([place] Comment on above: Performed By: #### A DIFF, ANEU, CMP, CBC, MG, GFR #### [place] [address] UA Protein 30 mg/dL Normal Negative [facility] ([place] Comment on above: Performed By: #### A DIFF, ANEU, CMP, CBC, MG, GFR #### [address] [address] UA Spec Grav >=1.030 Abnormal 1.015-1.025 [facility] ([place] Comment on above: Performed By: #### A DIFF, ANEU, CMP, CBC, MG, GFR #### [address] [address] UA Specimen Type Clean Catch Normal [facility] ([place] Comment on above: Performed By: #### A DIFF, ANEU, CMP, CBC, MG, GFR #### [address] [address] UA Urobilinogen 1.0 E.U./dL Normal 0.2-1.0 [facility] ([place] Comment on above: Performed By: #### A DIFF, ANEU, CMP, CBC, MG, GFR #### [address] [address] XR CHEST 1 VIEWon 11-08-2023 XR CHEST 1 VIEW ORIGINAL EXAMINATION: ONE XRAY VIEW OF THE CHEST 11/08/2023 7:07 pm COMPARISON: None. HISTORY: ORDERING SYSTEM PROVIDED HISTORY: Reason for Exam: fever, pain or tachypnea FINDINGS: Normal cardiomediastinal silhouette. No focal consolidation. Streaky airspace opacities at the right lung base. Right costophrenic angle is sharp. Blunting of left costophrenic angle, likely trace effusion or pleural thickening or atelectasis. No pneumothorax. No acute osseous findings. IMPRESSION: Streaky airspace opacities at the right lung base, likely subsegmental atelectasis/airspace disease. Blunting of left costophrenic angle, likely trace effusion or pleural thickening or atelectasis. Preliminary Report was Dictated by a Resident I have personally reviewed all of the images of this examination and agree with the resident findings and interpretation. Interpreted by: Caesar Manning MD Preliminary Report By: Guillermo Allen Electronically signed By Caesar Manning MD Dictated Date: 11/08/2023 7:32:49 PM Prelim Date: 11/08/2023 7:36:22 PM Sign Date: 11/08/2023 10:05:06 PM Ordering Provider: NIURKA BUTLER Normal [facility] ([place] Phyllis 09-13-2023 U Creatinine 324.0 mg/dL Normal [facility] ([place] Comment on above: Performed By: #### M ALBR #### [address] [address] U Microalb 1721 mcg/dL Normal [facility] ([place] Comment on above: Performed By: #### M ALBR #### [address] [address] U Ratio Alb/Cre 5.3 mcg/mg Normal 0.0-16.9 [facility] ([place] Comment on above: Performed By: #### M ALBR #### [address] [address] .Auto Diffon 03-22-2023 Basophil, Absolute 0.0 10 3/mcL Normal 0.0-0.3 [facility] ([place]) Comment on above: Performed By: #### R ESCVID #### [address] [address] Basophils/100 WBC (Bld) 0.2 % Normal 0.0-2.5 [facility] ([place] Comment on above: Performed By: #### R ESCVID #### [address] [address] Eosinophil, Absolute 0.2 10 3/mcL Normal 0.0-0.7 Counts include 234 beds at the [facility] ([place]) Comment on above: Performed By: #### R ESCVID #### [address] [address] Eosinophils/100 WBC (Bld) 2.5 % Normal 0.0-6.0 [facility] ([place] Comment on above: Performed By: #### R ESCVID #### [address] [address] Lymphocyte, Absolute 2.4 10 3/mcL Normal 0.9-4.3 Counts include 234 beds at the [facility] ([place]) Comment on above: Performed By: #### R ESCVID #### [address] [address] Lymphocytes/100 WBC (Bld) 35.3 % Normal 20.0-40.0 [facility] ([place] Comment on above: Performed By: #### R ESCVID #### [address] [address] Monocyte, Absolute 0.4 10 3/mcL Normal 0.1-1.4 [facility] ([place]) Comment on above: Performed By: #### R ESCVID #### [address] [address] Monocytes/100 WBC (Bld) 6.3 % Normal 2.0-13.0 [facility] ([place] Comment on above: Performed By: #### R ESCVID #### [address] [address] Neutrophils/100 WBC (Bld) 55.7 % Normal 50.0-75.0 [facility] ([place] Comment on above: Performed By: #### R ESCVID #### [address] [address] .GFRon 03-22-2023 GFR Non- >60 Normal [facility] ([place]) Comment on above: Result Comment: GFR Population mean for , Non- Americans Ages 20-29 = 116 mL/min/1.73 sq.m. Ages 30-39 = 107 mL/min/1.73 sq.m. Ages 40-49 = 99 mL/min/1.73 sq.m. Ages 50-59 = 93 mL/min/1.73 sq.m. Ages 60-69 = 85 mL/min/1.73 sq.m. Ages 70+ = 75 mL/min/1.73 sq.m. Chronic Kidney Disease: Less than 60 mL/min/1.73 square meters End Stage Renal Disease: Less than 15 mL/min/1.73 square meters Performed By: #### R ESCVID #### [address] [address] GFR >60 Normal [facility] ([place]) Comment on above: Result Comment: GFR Population mean for , Non- Americans Ages 20-29 = 116 mL/min/1.73 sq.m. Ages 30-39 = 107 mL/min/1.73 sq.m. Ages 40-49 = 99 mL/min/1.73 sq.m. Ages 50-59 = 93 mL/min/1.73 sq.m. Ages 60-69 = 85 mL/min/1.73 sq.m. Ages 70+ = 75 mL/min/1.73 sq.m. Chronic Kidney Disease: Less than 60 mL/min/1.73 square meters End Stage Renal Disease: Less than 15 mL/min/1.73 square meters Performed By: #### R ESCVID #### [address] [address] .NEUABSon 03-22-2023 Neutrophil, Absolute 3.7 10 3/mcL Normal 2.3-8.1 Counts include 234 beds at the [facility] ([place]) Comment on above: Performed By: #### R ESCVID #### [place] [address] A1Con 03-22-2023 HbA1c (Bld) [Mass fraction] 6.1 % High 4.0-6.0 [facility] ([place]) Comment on above: Performed By: #### R ESCVID #### [address] [address] CBCon 03-22-2023 Erythrocyte distribution width (RBC) [Ratio] 14.4 % Normal 11.5-15.5 [facility] ([place] Comment on above: Performed By: #### R ESCVID #### [address] [address] Hematocrit (Bld) [Volume fraction] 42.9 % Normal 40.0-52.0 [facility] ([place] Comment on above: Performed By: #### R ESCVID #### [address] [address] Hgb 14.6 G/dL Normal 13.0-17.5 [facility] ([place] Comment on above: Performed By: #### R ESCVID #### [address] [address] MCH (RBC) [Entitic mass] 32.0 pg Normal 27.0-33.0 [facility] ([place] Comment on above: Performed By: #### R ESCVID #### [address] [address] MCHC 34.1 G/dL Normal 32.0-36.0 [facility] ([place] Comment on above: Performed By: #### R ESCVID #### [place] [id number] MCV (RBC) [Entitic vol] 94.1 fL Normal 81.0-100.0 [facility] ([place] Comment on above: Performed By: #### R ESCVID #### [place] [address] Platelet 109 10 3/mcL Low 150-450 [facility] ([place] Comment on above: Performed By: #### R ESCVID #### [place] [address] Platelet mean volume (Bld) [Entitic vol] 10.4 fL Normal 6.4-10.5 [facility] ([place] Comment on above: Performed By: #### R ESCVID #### [place] [address] RBC 4.56 10 6/mcL Normal 4.50-6.00 [facility] ([place] Comment on above: Performed By: #### R ESCVID #### [place] [address] WBC 6.7 10 3/mcL Normal 4.5-10.8 [facility] ([place] Comment on above: Performed By: #### R ESCVID #### [place] [address] CMPon 03-22-2023 Albumin Level 3.6 G/dL Normal 3.2-4.8 [facility] ([place] Comment on above: Performed By: #### R ESCVID #### [place] [id number] Albumin/Globulin [Mass ratio] 1.3 {ratio} Normal 0.9-1.6 [facility] ([place] Comment on above: Performed By: #### R ESCVID #### [address] [address] ALP [Catalytic activity/Vol] 92 U/L Normal 38-126 [facility] ([place] Comment on above: Performed By: #### R ESCVID #### [place] [id number] ALT [Catalytic activity/Vol] 28 U/L Normal 12-55 [facility] ([place]) Comment on above: Performed By: #### R ESCVID #### [place] [id number] AST [Catalytic activity/Vol] 26 U/L Normal 8-34 [facility] ([place] Comment on above: Performed By: #### R ESCVID #### [place] [id number] Bili Total 0.80 mg/dL Normal 0.20-1.20 [facility] ([place] Comment on above: Result Comment: Use of this assay is not recommended for patients undergoing treatment with eltrombopag due to the potential for falsely elevated results. Performed By: #### R ESCVID #### [place] [id number] BUN/Creatinine Ratio 16.5 ratio Normal 10.0-22.0 [facility] ([place]) Comment on above: Performed By: #### R ESCVID #### [place] [id number] Calcium [Mass/Vol] 9.1 mg/dL Normal 8.7-10.4 [facility] ([place]) Comment on above: Performed By: #### R ESCVID #### [place] [id number] Chloride [Moles/Vol] 107 mmol/L Normal 98-110 [facility] ([place] Comment on above: Performed By: #### R ESCVID #### [address] [address] CO2 [Moles/Vol] 28 mmol/L Normal 22-32 [facility] ([place] Comment on above: Performed By: #### R ESCJULIAND #### [address] [address] Creatinine [Mass/Vol] 0.97 mg/dL Normal 0.60-1.40 [facility] ([place]) Comment on above: Performed By: #### R ESCVID #### [address] [address] Electrolyte Balance 4.0 mEq/L Normal 4.0-15.0 [facility] ([place]) Comment on above: Performed By: #### R ESCJULIAND #### [place] [id number] Globulin 2.8 G/dL Normal 1.5-3.8 [facility] ([place] Comment on above: Performed By: #### R ESCBIMAL #### [place] [id number] Glucose [Mass/Vol] 109 mg/dL Normal 82-115 [facility] ([place] Comment on above: Performed By: #### R ESCBIMAL #### [place] [id number] Potassium [Moles/Vol] 4.4 mmol/L Normal 3.5-5.0 [facility] ([place]) Comment on above: Result Comment: Spec imen slightly hemolyzed. Performed By: #### R ESCVID #### [place] [id number] Sodium [Moles/Vol] 139 mmol/L Normal 136-145 [facility] ([place] Comment on above: Performed By: #### R ESCBIMAL #### [place] [id number] Total Protein 6.4 G/dL Normal 5.7-8.2 [facility] ([place] Comment on above: Result Comment: No te - New Reference Range in effect 19 Performed By: #### R ESCVID #### [address] [address] Urea nitrogen [Mass/Vol] 16.0 mg/dL Normal 8.0-22.0 [facility] ([place] Comment on above: Performed By: #### R ESCVID #### [address] [address] LIPIDon 03-22-2023 Cholesterol [Mass/Vol] 117 mg/dL Normal 50-199 [facility] ([place] Comment on above: Result Comment: Chol esterol Reference Interval: Less than 200 Desirable 200-239 Borderline high risk 240 and above High risk Performed By: #### R ESCVID #### [address] [address] Cholesterol in HDL [Mass/Vol] 41 mg/dL Normal 40-59 [facility] ([place] Comment on above: Performed By: #### R ESCVID #### [address] [address] Cholesterol in LDL [Mass/Vol] 59 mg/dL Normal 0-129 [facility] ([place] Comment on above: Performed By: #### R ESCVID #### [address] [address] Triglyceride [Mass/Vol] 84 mg/dL Normal 3-149 [facility] ([place] Comment on above: Performed By: #### R ESCVID #### [address] [address] CNOVon 02-28-2023 CNOV Office Visit (UCTR ) RENY SANTOS V ([id number]) 1945 M DEF Date Time Provider Department 02/28/23 12:45 PM SAMUEL HEATH [facility] During your visit today, we recorded the following information about you: Temperature Pulse Respiration Blood pressure 99.8 degrees 88/minute 21/minute 102/64 Weight 95.6 kg Samuel Heath MD 02/28/2023 3:17 PM Signed Patient presents with: Cough: Congestion, runny nose, sob, wheezing, drainage x 1 month HPI: Feeling sick for 1 month. [place] a little better last week but worsened again. Home COVID test negative a couple weeks ago. Positive symptoms: Cough, Shortness of breath, Wheezing, Nasal Congestion, Rhinorrhea, sneezing Negative symptoms: Chest pain, Fever, Vomiting, Diarrhea, OTC: vicks, cough syrup, nasal spray New patient to [facility], he is not completely sure what medicines he is taking or his health conditions - reports he has a stent and bypass. Meds were pulled from outside sources. He has had a heart stent and bypass. Remote history of smoking, no history of asthma. PAST MEDICAL HISTORY Diagnosis Date CAD (coronary artery disease) COPD (chronic obstructive pulmonary disease) ([facility]) Diabetes mellitus type 2 ([facility]) MEDICATIONS: Current Outpatient Medications Medication Sig atorvastatin (LIPITOR) 80 mg tablet Take 80 mg by mouth daily at bedtime. bumetanide (BUMEX) 1 mg tablet Take 1 tablet by mouth every afternoon. clopidogrel (PLAVIX) 75 mg tablet Take 1 tablet by mouth every afternoon. dorzolamide (TRUSOPT) 2 % ophthalmic solution glipiZIDE (GLUCOTROL) 5 mg tablet Take 1 tablet by mouth every afternoon. isosorbide mononitrate ER (IMDUR) 30 mg 24 hr tablet Take 0.5 tablets by mouth every afternoon. meloxicam (MOBIC) 15 mg tablet Take 1 tablet by mouth every afternoon. metoprolol tartrate, short acting, (LOPRESSOR) 50 mg tablet Take 1 tablet by mouth every 12 hours. RHOPRESSA 0.02 % ophthalmic drops potassium chloride ER (KLOR-CON) 20 mEq tablet Take 1 tablet by mouth every afternoon. ANORO ELLIPTA 62.5-25 mcg/actuation inhaler No current facility-administered medications for this visit. ALLERGIES: ALLERGIES Allergen Reactions Latanoprost Other: See Comments Causes pain to eyes VITALS: BP 102/64 Pulse 88 Temp 37.7 ?C (99.8 ?F) Resp 21 Wt 95.6 kg (210 lb 12.8 oz) SpO2 92% PHYSICAL EXAM: GEN: Pleasant, in no acute distress. Accompanied by his grandson. HEENT: PERRL, EOMI, conjunctiva clear Ears: hearing aids removed. canals occluded by cerumen. Sinuses: non-tender frontal sinus, non-tender maxillary sinuses Throat: moist mucous membranes, mild erythema, no exudate Neck: supple, no thyromegaly, no lymphadenopathy HEART: regular rate and rhythm, no murmurs LUNGS: clear to auscultation, diminished in the bases, no increased WOB ASSESSMENT/PLAN: 1. Subacute cough - ICD9: 786.2, ICD10: R05.2 (primary diagnosis) 2. Acute non-recurrent sinusitis, unspecified location - ICD9: 461.9, ICD10: J01.90 - XR CHEST 2V FRONTAL/LAT -no infiltrate or vascular congestion. Cover for secondary bacterial sinusitis and COPD exacerbation with - DOXYCYCLINE MONOHYDRATE 100 MG CAPSULE Follow-up with primary care if not improving. Samuel Heath MD Allergies As of Date: 02/28/2023 Noted Allergy Reaction LATANOPROST 02/28/2023 14 - Other: See Comments Comments: Causes pain to eyes Date Reviewed: 02/28/2023 Reviewed by: Alyssa Hardy MA - Fully Assessed Reason for Visit: Cough [28] Cmt: Congestion, runny nose, sob, wheezing, drainage x 1 month Primary Visit Diagnosis:Subacute cough [R05.2] Other Visit Diagnosis:Acute non-recurrent sinusitis, unspecified location [J01.90] Order(s):XR CHEST 2V FRONTAL/LAT [[id number]] Order #: [id number] FUTURE doxycycline monohydrate (MONODOX) 100 mg capsuleTake 1 capsule by mouth two times a day for 5 days.Disp: 10 capsuleRfl: 0 Prescriptions as of 02/28/2023 - atorvastatin (LIPITOR) 80 mg tablet Take 80 mg by mouth daily at bedtime. - bumetanide (BUMEX) 1 mg tablet Take 1 tablet by mouth every afternoon. - clopidogrel (PLAVIX) 75 mg tablet Take 1 tablet by mouth every afternoon. - dorzolamide (TRUSOPT) 2 % ophthalmic solution - glipiZIDE (GLUCOTROL) 5 mg tablet Take 1 tablet by mouth every afternoon. - isosorbide mononitrate ER (IMDUR) 30 mg 24 hr tablet Take 0.5 tablets by mouth every afternoon. - meloxicam (MOBIC) 15 mg tablet Take 1 tablet by mouth every afternoon. - metoprolol tartrate, short acting, (LOPRESSOR) 50 mg tablet Take 1 tablet by mouth every 12 hours. - RHOPRESSA 0.02 % ophthalmic drops - potassium chloride ER (KLOR-CON) 20 mEq tablet Take 1 tablet by mouth every afternoon. - ANORO ELLIPTA 62.5-25 mcg/actuation inhaler - doxycycline monohydrate (MONODOX) 100 mg capsule Take 1 capsule by mouth two times a day for 5 days. Problem List As Of Da (more content not included)... Normal [facility] XR CHEST 2V FRONTAL/LATon XR CHEST 2V FRONTAL/LAT * * *Final Report* * * DATE OF EXAM: Feb 28 2023 1:56PM WOX [id number] - XR CHEST 2V FRONTAL/LAT / PROCEDURE REASON: Subacute cough * * * * Physician Interpretation * * * * EXAMINATION: CHEST RADIOGRAPH (2 VIEW FRONTAL and LATERAL) CLINICAL HISTORY: Subacute cough MQ: XC2_6 EXAM DATE/TIME: 02/28/2023 1:56 PM COMPARISON: No relevant prior studies available. RESULT: Lines, tubes, and devices: None. Lungs and pleura: No consolidation. No lung mass. No pleural effusion. No pneumothorax. Cardiomediastinal silhouette: Normal cardiomediastinal silhouette. Bones and soft tissues: Degenerative changes are present within the thoracic spine. IMPRESSION: No acute radiographic abnormality. Commercial Artist: BENJAMIN Transcribe Date/Time: Feb 28 2023 2:05P Dictated by : CHIDI ROONEY MD This examination was interpreted and the report reviewed and electronically signed by: CHIDI ROONEY MD on Feb 28 2023 2:07PM EST [id number] Normal [facility] XR Chest PA and Lateralon IMPRESSION: No acute radiographic abnormality. Commercial Artist: BENJAMIN Transcribe Date/Time: Feb 28 2023 2:05P Dictated by : CHIDI ROONEY MD This examination was interpreted and the report reviewed and electronically signed by: CHIDI ROONEY MD on Feb 28 2023 2:07PM EST DIVISION OF RADIOLOGY * * *Final Report* * * DATE OF EXAM: Feb 28 2023 1:56PM WOX 5291 - XR CHEST 2V FRONTAL/LAT / PROCEDURE REASON: Subacute cough * * * * Physician Interpretation * * * * EXAMINATION: CHEST RADIOGRAPH (2 VIEW FRONTAL & LATERAL) CLINICAL HISTORY: Subacute cough MQ: XC2_6 EXAM DATE/TIME: 02/28/2023 1:56 PM COMPARISON: No relevant prior studies available. RESULT: Lines, tubes, and devices: None. Lungs and pleura: No consolidation. No lung mass. No pleural effusion. No pneumothorax. Cardiomediastinal silhouette: Normal cardiomediastinal silhouette. Bones and soft tissues: Degenerative changes are present within the thoracic spine. DIVISION OF RADIOLOGY Provider, [facility] - 02/28/2023 * * *Final Report* * * DATE OF EXAM: Feb 28 2023 1:56PM WOX 5291 - XR CHEST 2V FRONTAL/LAT / PROCEDURE REASON: Subacute cough * * * * Physician Interpretation * * * * EXAMINATION: CHEST RADIOGRAPH (2 VIEW FRONTAL & LATERAL) CLINICAL HISTORY: Subacute cough MQ: XC2_6 EXAM DATE/TIME: 02/28/2023 1:56 PM COMPARISON: No relevant prior studies available. RESULT: Lines, tubes, and devices: None. Lungs and pleura: No consolidation. No lung mass. No pleural effusion. No pneumothorax. Cardiomediastinal silhouette: Normal cardiomediastinal silhouette. Bones and soft tissues: Degenerative changes are present within the thoracic spine. IMPRESSION IMPRESSION: No acute radiographic abnormality. Commercial Artist: BENJAMIN Transcribe Date/Time: Feb 28 2023 2:05P Dictated by : CHIDI ROONEY MD This examination was interpreted and the report reviewed and electronically signed by: CHIDI ROONEY MD on Feb 28 2023 2:07PM EST [facility] Radiology Study observation (narrative) [facility] XR Chest PA and LateralOrder ed By: [facility] Provider on 02-28-2023 [facility] Office Visiton 02-14-2017 Dietary management education, guidance, and counseling (procedure) yes Invalid Interpretation Code [facility] Work Phone: Documentation of current medications (procedure) Done Invalid Interpretation Code [facility] Work Phone: Lab Report: Lipid Profileon 02-13-2017 Cholesterol 116 mg/dL Invalid Interpretation Code 200 [facility] Work Phone: [phone] HDL Cholesterol 51 mg/dL Invalid Interpretation Code [facility] Work Phone: [phone] LDL Cholesterol 50 mg/dL Invalid Interpretation Code 0-130 [facility] Work Phone: [phone] Triglyceride 77 mg/dL Invalid Interpretation Code [facility] Work Phone: [phone] very low density lipoproteins 15 mg/dL Invalid Interpretation Code 5-40 [facility] Work Phone: [phone] Lab Report: Liver Profileon 02-13-2017 Alanine aminotransferase (ALT) 26 U/L Invalid Interpretation Code 12-78 [facility] Work Phone: [phone] Albumin 3.6 g/dL Invalid Interpretation Code 3.4-5.0 [facility] Work Phone: [phone] Alkaline phosphatase (ALP) 90 U/L Invalid Interpretation Code 45-117 [facility] Work Phone: [phone] Aspartate aminotransferase (AST) 21 U/L Invalid Interpretation Code 15-37 [facility] Work Phone: [phone] Bilirubin (direct) 0.20 mg/dL Invalid Interpretation Code 0.00-0.30 [facility] Work Phone: [phone] Bilirubin (total) 0.70 mg/dL Invalid Interpretation Code 0.20-1.00 [employer] Phone: [phone] Globulin 3.5 g/dL Invalid Interpretation Code 2.2-4.2 [facility] Work Phone: [phone] Protein 7.1 g/dL Invalid Interpretation Code 6.4-8.2 [facility] Work Phone: [phone] Chart Maintenanceon 08-07-19 17 Left ventricular Ejection fraction 65 % Invalid Interpretation Code [facility] Work Phone: [phone] Office Visiton 08-06-2016 Documentation of current medications (procedure) Done Invalid Interpretation Code [facility] Work Phone: [phone] Lab Report: PSA,Total - Melissa al Screenon 02-06-2016 PSA,TOT SCREEN 3.62 ng/mL Invalid Interpretation Code 0.00-4.00 [facility] Work Phone: [phone] Office Visiton 02-06-2016 Tobacco use [facility] Former smoker Invalid Interpretation Code [facility] Work Phone: [phone] Office Visiton 01-25-2015 Smoking cessation education (procedure) yes Invalid Interpretation Code [facility] Work Phone: [phone] Office Visiton 07-20-2014 cardiac risk group C Invalid Interpretation Code [facility] Work Phone: [phone] Dietary management education, guidance, and counseling (procedure) yes Invalid Interpretation Code [facility] Work Phone: [phone] General cardiovascular disease 10Y risk [#] Exline.D'Agostino N/A Invalid Interpretation Code [facility] 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 Work Phone: [phone] Lab Report: Drawn @ [facility] 01-10-2013 Cholesterol to HDL Ratio 2.0 {ratio} Invalid Interpretation Code [facility] Work Phone: [phone] EKG Report: [facility] ECG Obse ationson 04-22-2012 EKG QRS axis -23 deg Invalid Interpretation Code [employer] Phone: [phone] Interpretation Sinus Bradycardia WITHIN NORMAL LIMITS Invalid Interpretation Code [facility] Work Phone: [phone] P Laotto -1 deg Invalid Interpretation Code [facility] Work Phone: [phone] SD Interval 156 ms Invalid Interpretation Code [facility] Work Phone: [phone] Pulse (Heart Rate) 406 ms Invalid Interpretation Code [facility] Work Phone: [phone] Pulse (Heart Rate) 56 /min Invalid Interpretation Code [facility] Work Phone: [phone] QRS Duration 94 ms Invalid Interpretation Code [facility] Work Phone: [phone] QT Interval 412 ms Invalid Interpretation Code [facility] Work Phone: [phone] QTc Grajeda 405 ms Invalid Interpretation Code [facility] Work Phone: [phone] T Laotto -1 deg Invalid Interpretation Code [facility] Work Phone: [phone] Lab Reporton 04-22-2012 Calcium 9.3 mg/dL Invalid Interpretation Code [facility] Work Phone: [phone] Chloride 99 mmol/L Invalid Interpretation Code [facility] Work Phone: [phone] CO2 33 mmol/L Invalid Interpretation Code [facility] Work Phone: [phone] Creatinine 0.9 mg/dL Invalid Interpretation Code [facility] Work Phone: [phone] Glucose mass conc 114 mg/dL Invalid Interpretation Code [facility] Work Phone: [phone] Potassium molar conc 4.4 mmol/L Invalid Interpretation Code [facility] Work Phone: [phone] Sodium 140 mmol/L Invalid Interpretation Code [facility] Work Phone: [phone] Urea nitrogen 8 mg/dL Invalid Interpretation Code [facility] Work Phone: [phone] Erythrocyte distribution width Auto Ratio (RBC) 13.1 % Invalid Interpretation Code [facility] Work Phone: [phone] Erythrocytes (RBC) 4.83 10*6/uL Invalid Interpretation Code [facility] Work Phone: [phone] Hematocrit (HCT) 45.5 % Invalid Interpretation Code [facility] Work Phone: [phone] Hemoglobin mass conc (Bld) 15.2 g/dL Invalid Interpretation Code [facility] Work Phone: [phone] MCH 31.6 pg Invalid Interpretation Code [facility] Work Phone: [phone] MCHC mass conc (RBC) 33.5 % Invalid Interpretation Code [facility] Work Phone: [phone] MCV 94.3 fL Invalid Interpretation Code [facility] Work Phone: [phone] Platelets 124 10*3/mm3 Invalid Interpretation Code [facility] Work Phone: [phone] WBC (Leukocytes) 5.6 10*3/uL Invalid Interpretation Code [facility] Work Phone: [phone] Vital Signs Date Time Vital Sign Value Performing Clinician Facility 11-11-2023 14:33-0400 Body temperature 97.88 [degF] JUNE BARDWELL FIRE OFFICIAL-HOME INSPECTOR [facility] 11-11-2023 14:33-0400 Diastolic Blood Pressure Non-Invasive 77 mm[Hg] JUNE BARDWELL FI[employer] OFFICIAL-HOME INSPECTOR [facility] 11-11-2023 14:33-0400 Heart rate 71 /min JUNE BARDWELL FI[employer] OFFICIAL-HOME INSPECTOR [facility] 11-11-2023 14:33-0400 Reason For Taking VItal Signs JUNE BARDWELL FIRE OFFICIAL-HOME INSPECTOR [facility] 11-11-2023 14:33-0400 Respiratory rate 18 /min JUNE BARDWELL FI[employer] OFFICIAL-HOME INSPECTOR [facility] 11-11-2023 14:33-0400 Systolic Blood Pressure Non-Invasive 111 mm[Hg] JUNE BARDWELL FIRE OFFICIAL-HOME INSPECTOR [facility] 11-11-2023 11:08-0400 Blood Pressure Location JUNE BARDWELL FIRE OFFICIAL-HOME INSPECTOR [facility] 11-11-2023 11:08-0400 Body temperature 97.88 [degF] JUNE BARDWELL FIRE OFFICIAL-HOME INSPECTOR [facility] 11-11-2023 11:08-0400 Diastolic Blood Pressure Non-Invasive 56 mm[Hg] JUNE BARDWELL FIRE OFFICIAL-HOME INSPECTOR [facility] 11-11-2023 11:08-0400 Heart rate 72 /min JUNE BARDWELL FI[employer] OFFICIAL-HOME INSPECTOR [facility] 11-11-2023 11:08-0400 Reason For Taking VItal Signs JUNE BARDWELL FIRE OFFICIAL-HOME INSPECTOR [facility] 11-11-2023 11:08-0400 Respiratory rate 18 /min JUNE BARDWELL FI[employer] OFFICIAL-HOME INSPECTOR [facility] 11-11-2023 11:08-0400 Systolic Blood Pressure Non-Invasive 96 mm[Hg] JUNE BARDWELL FIRE OFFICIAL-HOME INSPECTOR [facility] 11-11-2023 08:53-0400 Blood Pressure Method JUNE BARDWELL FI[employer] OFFICIAL-HOME INSPECTOR [facility] 11-11-2023 08:53-0400 Body temperature 97.7 [degF] JUNE BARDWELL FIRE OFFICIAL-HOME INSPECTOR [facility] 11-11-2023 08:53-0400 Diastolic Blood Pressure Non-Invasive 64 mm[Hg] JUNE BARDWELL FIRE OFFICIAL-HOME INSPECTOR [facility] 11-11-2023 08:53-0400 Heart rate 76 /min JUNE BARDWELL FI[employer] OFFICIAL-HOME INSPECTOR [facility] 11-11-2023 08:53-0400 Respiratory rate 18 /min JUNE BARDWELL FIRE OFFICIAL-HOME INSPECTOR [facility] 11-11-2023 08:53-0400 Systolic Blood Pressure Non-Invasive 105 mm[Hg] JUNE BARDWELL FIRE OFFICIAL-HOME INSPECTOR [facility] 11-11-2023 07:14-0400 Heart rate 71 /min JUNE BARDWELL FI[employer] OFFICIAL-HOME INSPECTOR [facility] 11-11-2023 05:02-0400 Heart rate 66 /min JUNE BARDWELL FI[employer] OFFICIAL-HOME INSPECTOR [facility] 11-10-2023 22:59-0400 Heart rate 64 /min JUNE BARDWELL FI[employer] OFFICIAL-HOME INSPECTOR [facility] 11-10-2023 22:59-0400 Reason For Taking VItal Signs JUNE BARDWELL FIRE OFFICIAL-HOME INSPECTOR [facility] 11-10-2023 16:12-0400 Heart rate 68 /min JUNE LUIS FIRE OFFICIAL-HOME INSPECTOR [facility] 11-10-2023 15:33-0400 Heart rate 67 /min JUNE BARDWELL FIRE OFFICIAL-HOME INSPECTOR [facility] 11-08-2023 22:42-0400 Body height 188 cm JUNE BARDWELL FI[employer] OFFICIAL-HOME INSPECTOR [facility] 11-08-2023 22:42-0400 Body weight 95.5 kg JUNE LUIS FIRE OFFICIAL-HOME INSPECTOR [facility] 11-08-2023 22:42-0400 Body weight 27.02 kg/m2 JUNE BARDWELL FIRE OFFICIAL-HOME INSPECTOR [facility] 11-08-2023 22:10-0400 Heart rate 124 /min JUNE BARDWELL FI[employer] OFFICIAL-HOME INSPECTOR [facility] 11-08-2023 21:47-0400 Mean blood pressure 97 mm[Hg] JUNE LUIS FIRE OFFICIAL-HOME INSPECTOR [facility] 11-08-2023 21:15-0400 Mean blood pressure 82 mm[Hg] JUNE BARDWELL FIRE OFFICIAL-HOME INSPECTOR [facility] 11-08-2023 20:41-0400 Mean blood pressure 88 mm[Hg] JUNE BARDWELL FIRE OFFICIAL-HOME INSPECTOR [facility] 11-08-2023 17:57-0400 Body height 188 cm JUNE LUIS FIRE OFFICIAL-HOME INSPECTOR [facility] 11-08-2023 17:57-0400 Body weight 95.5 kg JUNE BARDWELL FIRE OFFICIAL-HOME INSPECTOR [facility] 02-28-2023 13:05-0500 Body temperature 99.81 [degF] Samuel Heath MD Work Phone: [facility] 02-28-2023 13:05-0500 Body weight 95.62 kg Samuel Heath MD Work Phone: [facility] 02-28-2023 13:05-0500 Diastolic blood pressure 64 mm[Hg] Samuel Heath MD Work Phone: [facility] 02-28-2023 13:05-0500 Heart rate 88 /min Samuel Heath MD Work Phone: [facility] 02-28-2023 13:05-0500 Respiratory rate 21 /min Samuel Heath MD Work Phone: [facility] 02-28-2023 13:05-0500 SaO2% (BldA) [Mass fraction] 92 % Samuel Heath MD Work Phone: [facility] 02-28-2023 13:05-0500 Systolic blood pressure 102 mm[Hg] Samuel Heath MD Work Phone: [facility] 02-14-2017 12:56-0500 BMI (Body Mass Index) 29.53 kg/m2 [facility] Work Phone: 02-14-2017 12:56-0500 BP Diastolic 62 mm[Hg] Vanessany [place] [facility] Work Phone: 02-14-2017 12:56-0500 BP Systolic 104 mm[Hg] Vanessa [facility] Work Phone: 02-14-2017 12:56-0500 Height 175.26 cm Vanessany [facility] Work Phone: 02-14-2017 12:56-0500 Pulse (Heart Rate) 60 /min Vanessany [facility] [facility] Work Phone: 02-14-2017 12:56-0500 Respiratory Rate 18 /min [facility] Work Phone: 02-14-2017 12:56-0500 Weight 90.72 kg Vanessa [facility] Work Phone: 08-06-2016 12:36-0400 BMI (Body Mass Index) 29.83 kg/m2 Phu Roof [employer] OPERATOR [facility] Work Phone: 08-06-2016 12:36-0400 BP Diastolic 50 mm[Hg] Hpu Roof P[employer] CR[employer] OPERATOR [facility] Work Phone: 08-06-2016 12:36-0400 BP Systolic 98 mm[Hg] Phu Roof P[employer] CRANE OPERATOR [facility] Work Phone: 08-06-2016 12:36-0400 Height 175.26 cm Phu Roof P[employer] CR[employer] OPERATOR [facility] Work Phone: 08-06-2016 12:36-0400 Pulse (Heart Rate) 70 /min Phu Roof [employer] CR[employer] OPERATOR [facility] Work Phone: 08-06-2016 12:36-0400 Respiratory Rate 20 /min Phu Roof P[employer] CR[employer] OPERATOR [facility] Work Phone: 08-06-2016 12:36-0400 Weight 91.63 kg Phu Roof P[employer] CR[employer] OPERATOR [facility] Work Phone: 02-06-2016 12:37-0500 BP Diastolic 52 mm[Hg] Phu Roof P[employer] CR[employer] OPERATOR [facility] Work Phone: 02-06-2016 12:37-0500 BP Systolic 110 mm[Hg] Phu Roof P[employer] CR[employer] OPERATOR [facility] Work Phone: 02-06-2016 12:37-0500 BSA (Body Surface Area) 2.08 m2 Phu Nails [employer] CR[employer] OPERATOR [facility] Work Phone: Encounters Encounter Date Encounter Type Care Provider Facility Start: 01-14-2024 End: 01-18-2024 ambulatory SAUL FALCON DO Facility:A Start: 11-08-2023 End: 11-11-2023 Evaluation and management of inpatient LESLIE SMITH FIRE OFFICIAL-HOME INSPECTOR [facility] Start: 09-13-2023 End: 09-17-2023 ambulatory SAUL FALCON DO Facility:A Start: 03-22-2023 End: 03-26-2023 ambulatory SAUL FALCON DO Facility:A Start: 02-28-2023 End: 02-28-2023 ambulatory SAMUEL HEATH Facility:[facility] Start: 02-28-2023 End: 02-28-2023 Subsequent hospital visit by physician [facility] Work Phone: Radiology Comment on above: Subacute cough [R05. 2] Start: 02-28-2023 End: 02-28-2023 Patient encounter procedure Samuel Heath MD Work Phone: [facility] Comment on above: Subacute cough (Prim alli Dx); Acute non-recurrent sinusitis, unspecified location Procedures Date Procedure Procedure Detail Performing Clinician Start: 02-28-2023 Radiologic exam ches t 2 views Samuel Heath MD Work Phone: Start: 02-14-2017 End: 02-14-2017 BONILLA Maurice MD Work Phone: Start: 02-14-2017 End: 02-14-2017 Follow Up Appt 6 months Amrik Maurice MD Work Phone: Start: 02-12-2017 End: 02-13-2017 *Hepatic Function Panel Amrik Maurice MD Work Phone: Start: 02-12-2017 End: 02-13-2017 Lipid 1996 panel - Serum or Plasma Amrik Maurice MD Work Phone: Start: 08-06-2016 End: 08-06-2016 BONILLA Maurice MD Work Phone: Start: 08-06-2016 End: 08-06-2016 Follow Up Appt 6 months Amrik Maurice MD Work Phone: Start: 08-03-2016 End: 02-12-2017 *Hepatic Function Panel Amrik Maurice MD Work Phone: Start: 08-03-2016 End: 02-12-2017 Lipid 1996 panel - Serum or Plasma Amrik Maurice MD Work Phone: Start: 02-08-2016 End: 02-15-2016 Echocardiography Amrik Maurice MD Work Phone: Start: 02-06-2016 End: 02-06-2016 BONILLA Maurice MD Work Phone: Start: 02-06-2016 End: 02-06-2016 Follow Up Appt 6 months Amrik Maurice MD Work Phone: Start: 01-23-2016 End: 02-06-2016 *Hepatic Function Panel Amrik Maurice MD Work Phone: Start: 01-23-2016 End: 02-06-2016 Lipid 1996 panel - Serum or Plasma Amrik Maurice MD Work Phone: Start: 01-04-2016 End: 02-06-2016 Echocardiography Amrik Maurice MD Work Phone: Start: 07-25-2015 End: 07-25-2015 BONILLA Maurice MD Work Phone: Start: 07-25-2015 End: 07-25-2015 Follow Up Appt 6 months Amrik Maurice MD Work Phone: Start: 07-22-2015 End: 07-22-2015 *Hepatic Function Panel Amrik Maurice MD Work Phone: Start: 07-22-2015 End: 07-22-2015 Lipid 1996 panel - Serum or Plasma Amrik Maurice MD Work Phone: Start: 01-25-2015 End: 02-07-2015 *Hepatic Function Panel Amrik Maurice MD Work Phone: Start: 01-25-2015 End: 01-25-2015 BONILLA Maurice MD Work Phone: Start: 01-25-2015 End: 01-26-2015 Documentation of current medications Amrik Maurice MD Work Phone: Start: 01-25-2015 End: 01-25-2015 Follow Up Appt 6 months Amrik Maurice MD Work Phone: Start: 01-25-2015 End: 02-07-2015 Lipid 1996 panel - Serum or Plasma Amrik Maurice MD Work Phone: Start: 01-25-2015 End: 01-26-2015 Smoking cessation education Amrik may MD Work Phone: Start: 07-27-2014 End: 07-28-2014 Follow Up BP Check Amrik Maurice MD Work Phone: Start: 07-20-2014 End: 07-20-2014 [place]ON Amrik Maurice MD Work Phone: Start: 07-20-2014 End: 07-21-2014 Documentation of current medications Amrik Maurice MD Work Phone: Start: 07-20-2014 End: 01-18-2015 Echocardiography Amrik Maurice MD Work Phone: Start: 07-20-2014 End: 07-20-2014 Follow Up Appt 6 months Amrik Maurice MD Work Phone: Start: 07-23-2013 End: 01-25-2015 *Hepatic Function Panel Amrik Maurice MD Work Phone: Start: 07-23-2013 End: 07-23-2013 BONILLA Maurice MD Work Phone: Start: 07-23-2013 End: 07-23-2013 Follow Up Appt 1 year Dmitry Porter Work Phone: Start: 07-23-2013 End: 01-25-2015 Lipid 1996 panel - Serum or Plasma Amrik Maurice MD Work Phone: Start: 01-20-2013 End: 01-20-2013 BONILLA Maurice MD Work Phone: Start: 01-20-2013 End: 01-20-2013 Follow Up Appt 6 months Amrik Maurice MD Work Phone: Start: 01-07-2013 End: 01-20-2013 *Hepatic Function Panel Amrik Maurice MD Work Phone: Start: 01-07-2013 End: 01-20-2013 Lipid 1996 panel - Serum or Plasma Darling Reynolds MA Start: 05-30-2012 End: 05-30-2012 Follow Up Appt 6 months Bradford Garcia MD Start: 04-22-2012 End: 04-24-2012 *BMP Bradford Garcia MD Start: 04-22-2012 End: 04-24-2012 *CBC with Differential Bradford Garcia MD Start: 04-22-2012 End: 04-22-2012 Ecg routine ecg w/least 12 lds w/i&r Bradford Garcia MD Start: 04-22-2012 End: 05-01-2012 Echocardiography Bradford Garcia MD Start: 04-22-2012 End: 04-22-2012 Follow Up Appt 6 weeks Bradford Garcia MD Start: 04-22-2012 End: 05-02-2012 Nuclear stress test -exercise Bradford Garcia MD Start: 04-02-2012 End: 04-10-2012 *Hepatic Function Panel Bradford Garcia MD Start: 04-02-2012 End: 04-10-2012 Lipid 1996 panel - Serum or Plasma Bradford Garcia MD Start: 10-15-2011 End: 10-15-2011 Ecg routine ecg w/least 12 lds w/i&r Bradford Garcia MD Start: 10-15-2011 End: 10-15-2011 Echocardiography Bradford Garcia MD Start: 04-16-2011 End: 04-16-2011 *Hepatic Function Panel Katie Blank RN Start: 04-16-2011 End: 04-16-2011 Lipid 1996 panel - Serum or Plasma Katie Blank RN Start: 04-05-2011 End: 04-05-2011 Follow Up Appt 6 months Katie Blank RN H/O: vasectomy JUNE [facility] [employer] INSPECTOR History of cardiac catheterization [facility] INSPECT[employer] Percutaneous translu hector coronary angioplasty [facility] [employer] OFF[employer]-HOME INSPECTOR Plan of Treatment Date Care Activity Detail Author Start: 12-01-2023 Covid-19 Vaccine () Covid-19 Vaccine () [facility] Start: 12-01-2023 Influenza vaccination Influenza Vaccine (#1) [facility] Start: 04-01-2023 Advance Directive Discussion Advance Directive Discussion [facility] Start: 11-30-2022 Covid-19 Vaccine () Covid-19 Vaccine () [facility] Start: 11-30-2022 Influenza vaccination Influenza Vaccine (#1) [facility] Start: 04-01-2022 Advance Directive Discussion Advance Directive Discussion [facility] Start: 04-01-2022 Depression Assessment Depression Assessment [facility] Start: 07-04-2021 Urine microalbumin profile DTaP,Tdap,Td Vaccine (2 - Td or Tdap) [facility] Start: 08-29-2017 End: 08-29-2017 Appointment Appointment [facility] Work Phone: Start: 08-13-2017 End: 02-14-2017 *Hepatic Function Panel *Hepatic Function Panel [facility] Work Phone: Start: 08-13-2017 End: 02-14-2017 Lipid panel [AGGREGATE] *Lipid Profile CC PCP [facility] Work Phone: Start: 02-14-2017 End: 02-14-2017 Appointment Appointment [facility] Phone: Start: 02-14-2017 End: 02-14-2017 BONILLA CRYSTAL [facility] Work Phone: Start: 02-14-2017 End: 02-14-2017 Follow Up Appt 6 months Follow Up Appt 6 months [facility] Work Phone: Start: 02-12-2017 End: 02-13-2017 *Hepatic Function Panel *Hepatic Function Panel [facility] Work Phone: Start: 02-12-2017 End: 02-13-2017 Lipid panel [AGGREGATE] *Lipid Profile CC PCP [facility] Work Phone: Start: 08-06-2016 End: 08-06-2016 DJN DJN [facility] Work Phone: Start: 08-06-2016 End: 08-06-2016 Follow Up Appt 6 months Follow Up Appt 6 months [facility] Work Phone: Start: 08-03-2016 End: 02-12-2017 *Hepatic Function Panel *Hepatic Function Panel [facility] Work Phone: Start: 08-03-2016 End: 02-12-2017 Lipid panel [AGGREGATE] *Lipid Profile CC PCP [facility] Work Phone: Start: 02-06-2016 End: 02-06-2016 DJN DJN [facility] Work Phone: Start: 02-06-2016 End: 02-06-2016 Echocardiography Echocardiogram (complete) [facility] Work Phone: Start: 02-06-2016 End: 02-06-2016 Follow Up Appt 6 months Follow Up Appt 6 months [facility] Work Phone: Start: 01-23-2016 End: 02-06-2016 *Hepatic Function Panel *Hepatic Function Panel [facility] Work Phone: Start: 01-23-2016 End: 02-06-2016 Lipid panel [AGGREGATE] *Lipid Profile CC PCP [facility] Work Phone: Start: 01-04-2016 End: 02-06-2016 Echocardiography Echocardiogram (complete) [facility] Work Phone: Start: 08-08-2015 End: 07-22-2015 *Hepatic Function Panel *Hepatic Function Panel [facility] Work Phone: Start: 08-08-2015 End: 07-22-2015 Lipid panel [AGGREGATE] *Lipid Profile CC PCP [facility] Work Phone: Start: 07-25-2015 End: 07-25-2015 DJN DJN [facility] Work Phone: Start: 07-25-2015 End: 07-25-2015 Follow Up Appt 6 months Follow Up Appt 6 months [facility] Work Phone: Start: 01-25-2015 End: 02-07-2015 *Hepatic Function Panel *Hepatic Function Panel [facility] Work Phone: Start: 01-25-2015 End: 01-25-2015 DJN DJN [facility] Work Phone: Start: 01-25-2015 End: 01-25-2015 Follow Up Appt 6 months Follow Up Appt 6 months [facility] Work Phone: Start: 01-25-2015 End: 02-07-2015 Lipid panel [AGGREGATE] *Lipid Profile CC PCP [facility] Work Phone: Start: 07-27-2014 End: 07-28-2014 Follow Up BP Check Follow Up BP Check [facility] Work Phone: Start: 07-20-2014 End: 07-20-2014 DJN DJN [facility] Work Phone: Start: 07-20-2014 End: 07-20-2014 Echocardiography Echocardiogram (complete) [facility] Work Phone: Start: 07-20-2014 End: 07-20-2014 Follow Up Appt 6 months Follow Up Appt 6 months [facility] Work Phone: Start: 07-23-2013 End: 01-25-2015 *Hepatic Function Panel *Hepatic Function Panel [facility] Work Phone: Start: 07-23-2013 End: 07-23-2013 DJN DJN [facility] Work Phone: Start: 07-23-2013 End: 07-23-2013 Follow Up Appt 1 year Follow Up Appt 1 year [facility] Work Phone: Start: 07-23-2013 End: 01-25-2015 Lipid panel [AGGREGATE] *Lipid Profile CC PCP [facility] Work Phone: Start: 01-20-2013 End: 01-20-2013 DJN DJN [facility] Work Phone: Start: 01-20-2013 End: 01-20-2013 Follow Up Appt 6 months Follow Up Appt 6 months [facility] Work Phone: Start: 01-07-2013 End: 01-20-2013 *Hepatic Function Panel *Hepatic Function Panel [facility] [employer] [facility] Work Phone: Start: 01-07-2013 End: 01-20-2013 Lipid panel [AGGREGATE] *Lipid Profile CC PCP [facility] Work Phone: Start: 05-30-2012 End: 05-30-2012 Follow Up Appt 6 months Follow Up Appt 6 months [facility] [employer] [facility] Work Phone: Start: 04-22-2012 End: 04-24-2012 *BMP *BMP [facility] Work Phone: Start: 04-22-2012 End: 04-24-2012 *CBC with Differential *CBC with Differential [facility] Work Phone: Start: 04-22-2012 End: 04-22-2012 Ecg routine ecg w/least 12 lds w/i&r EKG (In office) [facility] [employer] [facility] Work Phone: Start: 04-22-2012 End: 04-22-2012 Echocardiography Echocardiogram (complete) [facility] Work Phone: Start: 04-22-2012 End: 04-22-2012 Follow Up Appt 6 weeks Follow Up Appt 6 weeks [facility] [employer] [facility] Work Phone: Start: 04-22-2012 End: 04-22-2012 Nuclear stress test -exercise Nuclear stress test -exercise [facility] [employer] [facility] Work Phone: Start: 04-02-2012 End: 04-10-2012 *Hepatic Function Panel *Hepatic Function Panel [facility] Work Phone: Start: 04-02-2012 End: 04-10-2012 Lipid panel [AGGREGATE] *Lipid Profile [facility] Work Phone: Start: 10-15-2011 End: 10-15-2011 Ecg routine ecg w/least 12 lds w/i&r EKG (In office) [facility] Work Phone: Start: 10-15-2011 End: 10-15-2011 Follow Up Appt 6 months Follow Up Appt 6 months [facility] Work Phone: Start: 10-03-2011 End: 04-16-2011 *Hepatic Function Panel *Hepatic Function Panel [facility] Work Phone: Start: 10-03-2011 End: 04-16-2011 Lipid panel [AGGREGATE] *Lipid Profile [facility] Work Phone: Start: 04-05-2011 End: 04-05-2011 Follow Up Appt 6 months Follow Up Appt 6 months [facility] Work Phone: Start: 2009 Pneumococcal Vaccine: 65+ (1 - PCV) Pneumococcal Vaccine: 65+ (1 - PCV) [facility] Start: 2009 Pneumococcal Vaccine: 65+ (1 of 1 - PCV) Pneumococcal Vaccine: 65+ (1 of 1 - PCV) [facility] Start: 2004 RSV Vaccine (1 - 1-dose 60+ series) RSV Vaccine (1 - 1-dose 60+ series) [facility] Start: 1994 Shingrix Vaccine (1 of 2) Shingrix Vaccine (1 of 2) [facility] Start: 1989 Diabetes Screening Diabetes Screening [facility] Start: 1962 Anxiety Screening Anxiety Screening [facility] Start: 1962 Depression Screening Depression Screening [facility] Start: 1962 Hepatitis C Screening Hepatitis C Screening [facility] Patient Education [facility] Work Phone: Immunizations Immunization Date Immunization Notes Care Provider Jesús shukla 03-21-2021 SARS-CoV-2 (COVID-19 ) mRNA-1273 vaccine [facility] 08-13-2020 SARS-CoV-2 (COVID-19 ) mRNA-1273 vaccine [facility] 07-16-2020 SARS-CoV-2 (COVID-19 ) mRNA-1273 vaccine [facility] 07-05-2011 tetanus toxoid, redu brook diphtheria toxoid, and acellular pertussis vaccine, adsorbed [facility] Payers Date Payer Category Payer Medicare [id number] 2023 Unknown [id number] 2021 Unknown [id number] 2021 Unknown [id number] 1945 Unknown [id number] 1944 Unknown [id number] 1944 Unknown [id number] 1944 Unknown [id number] 1944 Unknown [id number] Social History Date Type Detail Facility Start: 06-27-2018 End: 02-28-2023 Tobacco smoking status NHIS Ex-smoker [facility] History of tobacco use Current smoker [facility] History of tobacco use Cigarette Smoker [facility] History of tobacco use Passive smoker [facility] Start: 02-28-2023 Tobacco use and exposure Forme r smokeless tobacco user [facility] History of tobacco use Chews Tobacco [facility] Start: 02-28-2023 History of Social function [facility] Start: 02-28-2023 Tobacco use panel [facility] Start: 1945 Sex Assigned At Not on file C [facility] Sex Assigned At Male [facility] Medical Equipment Procedure Code Equipment Code Equipment Origin al Text Equipment Identifier Dates See Instructions , one touch ultra blue test strips- test blood sugar once a day E11.9 non insulin dependent, # 100 EA, 3 Refill(s), Pharmacy: [id number], 175, cm, 11/07/21 14:09:00 EDT, Height, 95 Start: 11-27-2021 See Instructions , lancets, testing 1 qd, non insulin dependent E11.9, # 1 EA, 0 Refill(s), Pharmacy: [facility] #[id number], 175, cm, 03/22/23 13:10:00 EST, Height, 92.3, kg, 03/22/23 13:10:00 EST, Dosing Weight Start: 05-14-2023 ONE TOUCH ULTRA BLUE TEST STRP, See Instructions, TESTING ONCE DAILY DIRECTED, # 100 strip, 3 Refill(s), Pharmacy: [id number], 175, cm, 07/07/20 12:57:00 EDT, Height, 100.9, kg, 07/07/20 12:57:00 EDT, Dosing Weight Start: 11-15-2020 ONETOUCH ULTRA T EST STRIP, See Instructions, TEST BLOOD SUGAR once daily as directed, # 100 strip, 2 Refill(s), Pharmacy: [facility] #[id number], 175, cm, 11/16/22 12:51:00 EDT, Height, 93.4, kg, 11/16/22 12:51:00 EDT, Dosing Weight Start: 01-11-2023 Functional Status Date Assessment Result Facility 11-11-2023 Functional Status Mod I [facility]-10[facility] 11-10[facility]2023 Functional Status Dinner Percent [address] [facility] 11-10-2023 Functional Status Charles [facility] 11-10-2023 Functional Status Multilevel home [facility] 11-10-2023 Functional Status Charles [facility] 11-10-2023 Functional [facility] 11-09-2023 Functional Status Reason SCD Rem yolanda/Off Patient refused [facility] 11-09-2023 Functional Status Sitting on edge of bed [facility] 11-09-2023 Functional [facility] 11-09-2023 [facility] 11-09-2023 Functional Status [facility] 11-09-2023 Functional Status [facility] 11-08-2023 Functional Status [facility] Mental Status Date Assessment Result Facility 11-11-2023 Mental Status Oriented x 4 [facility] 11-11-2023 Mental Status [facility] Clinical Notes 02-28-2023 to 11-14-2023 Note Date & Type Note Facility 11-14-2023 Note . MICRO - Microbiology PROCEDURE: Blood Culture (bacterial) [*1] SOURCE: Blood BODY SITE: COLLECTED DATE/TIME: 11/08/2023 18:31 EDT RECEIVED DATE/TIME: 11/09/2023 12:34 EDT START DATE/TIME: 11/09/2023 12:35 EDT FREE TEXT SOURCE: FINAL REPORTS Final Report [] Verified Date/Time/Personnel: 11/14/2023 12:59 EDT Blood Culture: No Growth at 5 days. PRELIMINARY REPORTS Preliminary Report [] Verified Date/Time/Personnel: 11/09/2023 13:59 EDT Culture has been received in lab and is no growth to date. Routine cultures are held for 5 days. Performing Locations *1: This test was performed at: [address], [id number] [place] [address]) 11-14-2023 Note . MICRO - Microbiology PROCEDURE: Blood Culture (bacterial) [*1] SOURCE: Blood BODY SITE: COLLECTED DATE/TIME: 11/08/2023 18:31 EDT RECEIVED DATE/TIME: 11/09/2023 12:34 EDT START DATE/TIME: 11/09/2023 12:35 EDT FREE TEXT SOURCE: FINAL REPORTS Final Report [] Verified Date/Time/Personnel: 11/14/2023 12:59 EDT Blood Culture: No Growth at 5 days. PRELIMINARY REPORTS Preliminary Report [] Verified Date/Time/Personnel: 11/09/2023 13:59 EDT Culture has been received in lab and is no growth to date. Routine cultures are held for 5 days. Performing Locations *1: This test was performed at: [address], [address] [place] [address] ([place]) 11-11-2023 Hospital Discharge instructions Patient Education 11/11/2023 12:55:52 Community-Acquired Pneumonia, Adult, [id number] Community-Acquired Pneumonia, Adult Pneumonia is an infection of the lungs. It causes swelling in the airways of the lungs. Mucus and fluid may also build up inside the airways. One type of pneumonia can happen while a person is in a hospital. A different type can happen when a person is not in a hospital (community-acquired pneumonia). What are the causes? This condition is caused by germs (viruses, bacteria, or fungi). Some types of germs can be passed from one person to another. This can happen when you breathe in droplets from the cough or sneeze of an infected person. What increases the risk? You are more likely to develop this condition if you: Have a long-term (chronic) disease, such as: ?Chronic obstructive pulmonary disease (COPD). ?Asthma. ?Cystic fibrosis. ?Congestive heart failure. ?Diabetes. ?Kidney disease. Have HIV. Have sickle cell disease. Have had your spleen removed. Do not take good care of your teeth and mouth (poor dental hygiene). Have a medical condition that increases the risk of breathing in droplets from your own mouth and nose. Have a weakened body defense system (immune system). Are a smoker. Travel to areas where the germs that cause this illness are common. Are around certain animals or the places they live. What are the signs or symptoms? A dry cough. A wet (productive) cough. Fever. Sweating. Chest pain. This often happens when breathing deeply or coughing. Fast breathing or trouble breathing. Shortness of breath. Shaking chills. Feeling tired (fatigue). Muscle aches. How is this treated? Treatment for this condition depends on many things. Most adults can be treated at home. In some cases, treatment must happen in a hospital. Treatment may include: Medicines given by mouth or through an IV tube. Being given extra oxygen. Respiratory therapy. In rare cases, treatment for very bad pneumonia may include: Using a machine to help you breathe. Having a procedure to remove fluid from around your lungs. Follow these instructions at home: Medicines Take satc-xrp-lzlkoxc and prescription medicines only as told by your doctor. ?Only take cough medicine if you are losing sleep. If you were prescribed an antibiotic medicine, take it as told by your doctor. Do not stop taking the antibiotic even if you start to feel better. General instructions Sleep with your head and neck raised (elevated). You can do this by sleeping in a recliner or by putting a few pillows under your head. Rest as needed. Get at least 8 hours of sleep each night. Drink enough water to keep your pee (urine) pale yellow. Eat a healthy diet that includes plenty of vegetables, fruits, whole grains, low-fat dairy products, and lean protein. Do not use any products that contain nicotine or tobacco. These include cigarettes, e-cigarettes, and chewing tobacco. If you need help quitting, ask your doctor. Keep all follow-up visits as told by your doctor. This is important. How is this prevented? A shot (vaccine) can help prevent pneumonia. Shots are often suggested for: People older than 65 years of age. People older than 19 years of age who: ?Are having cancer treatment. ?Have long-term (chronic) lung disease. ?Have problems with their body's defense system. You may also prevent pneumonia if you take these actions: Get the flu (influenza) shot every year. Go to the dentist as often as told. Wash your hands often. If you cannot use soap and water, use hand manager branch. Contact a doctor if: You have a fever. You lose sleep because your cough medicine does not help. Get help right away if: You are short of breath and it gets worse. You have more chest pain. Your sickness gets worse. This is very serious if: ?You are an older adult. ?Your body's defense system is weak. You cough up blood. Summary Pneumonia is an infection of the lungs. Most adults can be treated at home. Some will need treatment in a hospital. Drink enough water to keep your pee pale yellow. Get at least 8 hours of sleep each night. This information is not intended to replace advice given to you by your health care provider. Make sure you discuss any questions you have with your health care provider. Document Released: 09/03/2008 Document Revised: 07/08/2019 Document Reviewed: 11/13/2018 [employer] Patient Education 2020 [employer]. Follow Up Care 11/08/2023 17:53:20 With:SAUL FALCON DO Address: [address] [place] [address] [place], [place] [id number]- [phone] When:3-5 days Comments:Please call to schedule your post-hospital appointment. [facility] 11-11-2023 Note Discharge Instructions Thank you for allowing [facility] to assist you with your healthcare needs. The following is important discharge information regarding your hospital visit. Your Care Team Leyda Kerr CNP Your Diagnosis Altered mental status Community acquired pneumonia COPD without exacerbation Hypertension Sepsis Type 2 diabetes mellitus What to do next Instructions From Your Doctor You were evaluated in the ED due to confusion and weakness at home. In the ED, you were diagnosed with pneumonia and admitted for ongoing IV antibiotics. You have improved with treatment and are back to baseline. We ruled out unusual causes of pneumonia and were able to narrow your antibiotics down to one. You will be discharged on Cefdinir 300 mg oral twice daily for 3 more days. You have remained on room air through your stay and, even with activity, have been able to maintain good oxygen saturations. We had therapy see while you were here and they did not feel that you have any outpatient therapy needs at this time. Please schedule a post-hospitalization follow-up with Dr. Falcon in the next week so that he can check on you and make sure you are continuing to improve. If you have any new or worsening symptoms, please return to the ED. Scheduled Follow-Up Appointments Appointment Type When With Where Contact Information [facility] Annual 01/14/2024 01:00 PM EDT SAUL FALCON DO [facility] Confirmed Follow Up Appointments Follow Up with SAUL FALCON DO When:Within 3-5 days Where:[address] [place] [address] [phone] Additional Information: Please call to schedule your post-hospital appointment. The Following Activity and Diet Have Been Ordered for You Discharge Activity - Ordered -- Resume your pre-hospitalization activity, 11/11/23 14:17:00 EDT Discharge Diet - Ordered -- Type of Diet: Regular Diet, 11/11/23 14:17:00 EDT The Following Treatments Have Been Ordered for You Discharge Labs No qualifying data available. Discharge Radiology No qualifying data available. Other Therapies No qualifying data available. Post Acute Orders No qualifying data available. Allergies contrast media (iodine-based) unknown Medications Please ask your primary doctor or pharmacist before taking any other medication not listed, including over the counter drugs, herbal medications, vitamins and or supplements as they may interact with your home medications. What How Much When Instructions Last Dose New cefdinir (cefdinir 300 mg oral capsule) 1 cap by mouth Every 12 hours Duration: 3 Days Pickup at [id number] Changed umeclidinium-vilanterol (Anoro Ellipta 62.5 mcg-25 mcg/ inh inhalation powder) 1 puff(s) by inhalation Once a day Unchanged atorvastatin (atorvastatin 80 mg oral tablet) 1 tab(s) by mouth Once a day Unchanged bumetanide (bumetanide 1 mg oral tablet) TAKE 1 TABLET BY MOUTH EVERY DAY Unchanged clopidogrel (clopidogrel 75 mg oral tablet) 1 tab(s) by mouth Every day Unchanged DME (DME MISCellaneous) See instructions lancets, testing 1 qd, non insulin dependent E11.9 Unchanged DME (DME MISCellaneous) See instructions one touch ultra blue test strips- test blood sugar once a day E11.9 non insulin dependent Unchanged dorzolamide ophthalmic (dorzolamide 2% ophthalmic solution) APPLY ONE DROP TO BOTH EYES 2 TIMES A DAY. Unchanged glipiZIDE (glipiZIDE 5 mg oral tablet) 1 tab(s) by mouth Once a day Unchanged isosorbide mononitrate (isosorbide mononitrate 30 mg oral tablet, extended release) take 1/ 2 tablet by mouth once daily Unchanged meloxicam (meloxicam 15 mg oral tablet) 1 tab(s) by mouth Once a day Unchanged metoprolol (Metoprolol Tartrate 50 mg oral tablet) 1 tab(s) by mouth Two (2) times a day Unchanged Misc Medication (ONE TOUCH ULTRA BLUE TEST STRP) See instructions TESTING ONCE DAILY DIRECTED Unchanged Misc Medication (ONETOUCH ULTRA TEST STRIP) See instructions TEST BLOOD SUGAR once daily as directed Unchanged netarsudil ophthalmic (Rhopressa 0.02% ophthalmic solution) 1 Drops Both eyes Two (2) times a day INSTILL 1 DROP INTO BOTH EYES EVERY DAY Unchanged potassium chloride (Klor-Con M20 oral tablet, extended release) 1 tab(s) by mouth Once a day Pharmacy Information [id number]: [address], [place] [id number] [phone] Please take this list to your next doctor s visit. Bring all medications you take, including over the counter medications, herbals and other supplements with you to your doctor s visit. Patients and families are reminded to discard old lists and to update any records with all medication providers or retail pharmacies. Medication Leaflets cefdinir ([facility] max wells) What is the most important information I should know about cefdinir? Do not take this medicine if you are allergic to cefdinir, or to similar antibiotics, such as Ceftin, Cefzil, Keflex, and others. What is cefdinir? Cefdinir is a cephalosporin (SEF a low spor in) antibiotic that is used to treat many different types of infections caused by bacteria. Cefdinir may also be used for purposes not listed in this medication guide. What should I discuss with my healthcare provider before taking cefdinir? You should not take this medicine if you are allergic to cefdinir or any other cephalosporin antibiotic (cefadroxil, cefprozil, cefazolin, cefalexin, Keflex, and others). Tell your doctor if you have ever had: kidney disease (or if you are on dialysis); intestinal problems, such as colitis; or an allergy to any drugs (especially penicillins). Cefdinir liquid contains sucrose. Talk to your doctor before using this form of cefdinir if you have diabetes. Tell your doctor if you are or . How should I take cefdinir? Follow all directions on your prescription label and read all medicine guides or instruction sheets. Use the medicine exactly as directed. Shake the oral suspension (liquid) before you measure a dose. Use the dosing syringe provided, or use a medicine dose-measuring device (not a kitchen spoon). You may take cefdinir with or without food. Use this medicine for the full prescribed length of time, even if your symptoms quickly improve. Skipping doses can increase your risk of infection that is resistant to medication. Cefdinir will not treat a viral infection such as the flu or a common cold. Cefdinir can affect the results of certain medical tests. Tell any doctor who treats you that you are using cefdinir. Store at room temperature away from moisture and heat. Throw away any unused cefdinir liquid that is older than 10 days. What happens if I miss a dose? Take the medicine as soon as you can, but skip the missed dose if it is almost time for your next dose. Do not take two doses at one time. What happens if I overdose? Seek emergency medical attention or call the Poison Help line at . Overdose symptoms may include nausea, vomiting, stomach pain, diarrhea, or a seizure. What should I avoid while taking cefdinir? Avoid using antacids or mineral supplements that contain aluminum, magnesium, or iron within 2 hours before or after taking cefdinir. Antacids or iron can make it harder for your body to absorb cefdinir. This does not include baby formula fortified with iron. Antibiotic medicines can cause diarrhea, which may be a sign of a new infection. If you have diarrhea that is watery or bloody, call your doctor before using anti-diarrhea medicine. What are the possible side effects of cefdinir? Get emergency medical help if you have signs of an allergic reaction (hives, difficult breathing, swelling in your face or throat) or a severe skin reaction (fever, sore throat, burning eyes, skin pain, red or purple skin rash with blistering and peeling). Call your doctor at once if you have: severe stomach pain, diarrhea that is watery or bloody (even if it occurs months after your last dose); fever, chills, body aches, flu symptoms; pale skin, easy bruising, unusual bleeding; seizure (convulsions); fever, weakness, confusion; dark colored urine, jaundice (yellowing of the skin or eyes); or kidney problems--little or no urination, swelling in your feet or ankles, feeling tired or short of breath. Common side effects may include: nausea, vomiting, stomach pain, diarrhea; vaginal itching or discharge; headache; or rash (including diaper rash in an infant taking liquid cefdinir. This is not a complete list of side effects and others may occur. Call your doctor for medical advice about side effects. You may report side effects to FDA at 7-250-ATM-1204. What other drugs will affect cefdinir? Tell your doctor about all your other medicines, especially: probenecid; or vitamin or mineral supplements that contain iron. This list is not complete. Other drugs may affect cefdinir, including prescription and eeoi-vpj-mmmhpzs medicines, vitamins, and herbal products. Not all possible drug interactions are listed here. Where can I get more information? Your pharmacist can provide more information about cefdinir. Remember, keep this and all other medicines out of the reach of children, never share your medicines with others, and use this medication only for the indication prescribed. Every effort has been made to ensure that the information provided by [employer]. ('[employer]') is accurate, up-to-date, and complete, but no guarantee is made to that effect. Drug information contained herein may be time sensitive. [employer] information has been compiled for use by healthcare practitioners and consumers in the [place] and therefore [employer] does not warrant that uses outside of the [place] are appropriate, unless specifically indicated otherwise. [employer]'s drug information does not endorse drugs, diagnose patients or recommend therapy. [employer] drug information is an informational resource designed to assist licensed healthcare practitioners in caring for their patients and/or to serve consumers viewing this service as a supplement to, and not a substitute for, the expertise, skill, knowledge and judgment of healthcare practitioners. The absence of a warning for a given drug or drug combination in no way should be construed to indicate that the drug or drug combination is safe, effective or appropriate for any given patient. [facility] does not assume any responsibility for any aspect of healthcare administered with the aid of information [facility] provides. The information contained herein is not intended to cover all possible uses, directions, precautions, warnings, drug interactions, allergic reactions, or adverse effects. If you have questions about the drugs you are taking, check with your doctor, nurse or pharmacist. Copyright 9352-3741 [facility] [employer]. Version: 9.. Revision Date: 11/02/2022. Education Materials Community-Acquired Pneumonia, Adult Pneumonia is an infection of the lungs. It causes swelling in the airways of the lungs. Mucus and fluid may also build up inside the airways. One type of pneumonia can happen while a person is in a hospital. A different type can happen when a person is not in a hospital (community-acquired pneumonia). What are the causes? This condition is caused by germs (viruses, bacteria, or fungi). Some types of germs can be passed from one person to another. This can happen when you breathe in droplets from the cough or sneeze of an infected person. What increases the risk? You are more likely to develop this condition if you: Have a long-term (chronic) disease, such as: ? Chronic obstructive pulmonary disease (COPD). ? Asthma. ? Cystic fibrosis. ? Congestive heart failure. ? Diabetes. ? Kidney disease. Have HIV. Have sickle cell disease. Have had your spleen removed. Do not take good care of your teeth and mouth (poor dental hygiene). Have a medical condition that increases the risk of breathing in droplets from your own mouth and nose. Have a weakened body defense system (immune system). Are a smoker. Travel to areas where the germs that cause this illness are common. Are around certain animals or the places they live. What are the signs or symptoms? A dry cough. A wet (productive) cough. Fever. Sweating. Chest pain. This often happens when breathing deeply or coughing. Fast breathing or trouble breathing. Shortness of breath. Shaking chills. Feeling tired (fatigue). Muscle aches. How is this treated? Treatment for this condition depends on many things. Most adults can be treated at home. In some cases, treatment must happen in a hospital. Treatment may include: Medicines given by mouth or through an IV tube. Being given extra oxygen. Respiratory therapy. In rare cases, treatment for very bad pneumonia may include: Using a machine to help you breathe. Having a procedure to remove fluid from around your lungs. Follow these instructions at home: Medicines Take dbcy-mli-oyjoynn and prescription medicines only as told by your doctor. ? Only take cough medicine if you are losing sleep. If you were prescribed an antibiotic medicine, take it as told by your doctor. Do not stop taking the antibiotic even if you start to feel better. General instructions Sleep with your head and neck raised (elevated). You can do this by sleeping in a recliner or by putting a few pillows under your head. Rest as needed. Get at least 8 hours of sleep each night. Drink enough water to keep your pee (urine) pale yellow. Eat a healthy diet that includes plenty of vegetables, fruits, whole grains, low-fat dairy products, and lean protein. Do not use any products that contain nicotine or tobacco. These include cigarettes, e-cigarettes, and chewing tobacco. If you need help quitting, ask your doctor. Keep all follow-up visits as told by your doctor. This is important. How is this prevented? A shot (vaccine) can help prevent pneumonia. Shots are often suggested for: People older than 65 years of age. People older than 19 years of age who: ? Are having cancer treatment. ? Have long-term (chronic) lung disease. ? Have problems with their body's defense system. You may also prevent pneumonia if you take these actions: Get the flu (influenza) shot every year. Go to the dentist as often as told. Wash your hands often. If you cannot use soap and water, use hand manager branch. Contact a doctor if: You have a fever. You lose sleep because your cough medicine does not help. Get help right away if: You are short of breath and it gets worse. You have more chest pain. Your sickness gets worse. This is very serious if: ? You are an older adult. ? Your body's defense system is weak. You cough up blood. Summary Pneumonia is an infection of the lungs. Most adults can be treated at home. Some will need treatment in a hospital. Drink enough water to keep your pee pale yellow. Get at least 8 hours of sleep each night. This information is not intended to replace advice given to you by your health care provider. Make sure you discuss any questions you have with your health care provider. Document Released: 09/03/2008 Document Revised: 07/08/2019 Document Reviewed: 11/13/2018 Elsevier Patient Education 2020 [employer] Additional Information VACCINATE! IT SAVES LIVES! Members of the community who have not yet received the COVID-19 vaccine and would like to receive it can visit one of [facility] vaccine clinics. There are many vaccine clinic locations within the [facility]. For locations and available times, please visit https://gettheshot.coronavirus.o hio.gov/. It is important to note that some COVID mobile vaccine clinics are held outdoors and may be canceled in rainy or stormy conditions. To learn more about pediatric vaccinations (ages 5-11), we invite you to visit the [facility] webpage. https://www.Obviousideas.org/p ages/2120-Odtiy-Qdcpmkyuakt-Freq dyqxge-Aswuy-Nczxgbfzd.html To learn more about the COVID-19 vaccine, we invite you to visit the CDC website for a list of frequently asked questions.https://www.cdc.gov/co ronavirus/2019-ncov/vaccines/faq .html [facility] Patient Portal Access Instructions: Stay connected with your healthcare team and access your personal medical information anytime with the [facility] Patient Portal. Please follow the directions below to create your [facility] account: 1.Access the email account you provided upon registration to the hospital/physician office.2.Look for an invitation email from [facility].3.Open the email and access the invitation link: Accept Invitation to [facility].4.Fill in the required schultz to create your account. To access your account, visit [email or web address]. Click the blue button labeled Access Patient Portal and then log in with the username and password that you created in the steps above. You will be able to view your test results, lab results, a summary of your visits, upcoming appointments and more. There is also a convenient messaging option where you can send secure messages to your provider. In addition, you will have the ability to download any documents or summaries to your computer and/or send the information securely to a physician. Remember that your healthcare information is confidential, so carefully consider who you will allow to register on the [facility] for access to your information. You can also access the [facility] on the [employer] geovanny. Simply click on Patient Portal and then log into your account. If you would like to receive a full copy of your medical records, please contact the [facility] Medical Records Department by calling [phone], Saturday through Saturday between 8 a.m. and 4:30 p.m. HOW TO SAFELY DISPOSE OF PRESCRIPTION MEDICATIONS Please use one of the following methods to safely dispose of your unused medications. 1.Use a drug disposal kit: the drug disposal pouch allows you to safely discard your old and unused drugs. Ask your nurse to give you one when you are discharged.2.Visit a local take-back location: Many local pharmacies and police departments have programs that collect old and unwanted prescription drugs. Call your local pharmacy or go to http://[employer]/5U5Bm1j to find one close to you.3.Make use of household items: Use cat litter or old coffee grounds to dispose medications if other options are not available. Mix your drugs with these household products, seal them in an airtight container and throw it into the garbage. Call [facility]: [phone] to be sure your drugs can be disposed of in this way. Some medicines may require a different approach.4.Never flush your medications down the toilet. IF YOU HAVE BEEN PRESCRIBED AN OPIOID FOR PAIN If you have been prescribed an opioid (such as hydrocodone, oxycodone or morphine), it is critical to understand the possible side effects and risks of opioid pain medications. Even when taken as directed, opioids can have several side effects including: Tolerance, meaning you might need to take more of a medication for the same pain relief. Nausea, vomiting and/or constipation. Sleepiness, dizziness, dry mouth, confusion, depression or itching. Physical dependence, meaning you have withdrawal symptoms when a medication is stopped, can develop within a few days. KNOW YOUR RESPONSIBILITIES It is important to know exactly how much and how often to take the opioid pain medications you are prescribed. Never take opioids in higher amounts or more often than prescribed. Do not combine opioids with alcohol or other drugs that cause drowsiness, such as benzodiazepines, also known as benzos, including diazepam and alprazolam, muscle relaxants or sleep aids. Never sell or share prescription opioids. This is illegal. Store opioids in a secure place and out of reach of others (including children, family, friends and visitors). The last page of this document has been signed and retained as a CHART COPY. Signatures Patient Education Materials Community-Acquired Pneumonia, Adult, Tnwd-ao-Uole Medication Leaflets cefdinir My discharge plan and instructions have been reviewed and explained to me and I,RENY SANTOS V understand my current condition and have read and understand these discharge instructions. I have received a written copy of the plan/instructions. If I have questions, I am aware that I should contact my doctor. 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 I was present for all care. Digitally Signed by Lyudmila Osorio Senior Java Web Developer on 11/11/2023 10:25 AM [facility] 11-10-2023 Note Date of Service 11/10/2023 Chief Complaint weakness Subjective Patient seen and evaluated this morning while resting in bed. He is awake and alert this morning and answering questions appropriately. He had some nausea yesterday afternoon and was medicated with zofran. He felt better later and was able to eat dinner. Patient states that he is not sure what happened at home. He does not have a good recollection of the day he came in to the ED. He is still not sure if he fell at home but says they told me I did. He is aware that we will have therapy evaluate him to make sure he is strong enough to go home. He remains on room air with acceptable oxygen saturations. His respiratory panel and atypicals came back negative so we were able to narrow his antibiotics. Patient aware that, if he continues to progress, he could possibly be discharged home tomorrow. This will depend on whether therapy recommends a skilled stay though. Patient verbalizes understanding. He denies any fever, chills, cough, chest pain, abdominal pain, nausea or dysuria. He does not feel short of breath at rest and has not been out of bed much since admission. Objective Vitals and Measurements T: 37.3 C (Oral) TMIN: 36.0 C (Oral) TMAX: 37.3 C (Oral) HR: 68 (Apical) RR: 20 BP: 114/62 SpO2: 92% Intake and Output 7AM Yesterday to 7AM Today Intake and Output (Last 24 hours) Intake Oral Intake 800.00 Output Urine Voided 700.00 Total Summary Total Intake 800.00 Total Output 700.00 Fluid Balance 100.00 Physical Exam General: No acute distress. Patient is alert, chronically ill-appearing. Skin: No rash. Skin is warm, dry and intact. HEENT: Head is normocephalic, atraumatic. Pupils are equal, round and reactive. Neck: Supple. No lymphadenopathy, thyromegaly. Lungs: Bilaterally clear but diminished without crepitation or wheeze. Unlabored. Heart: Heart is regular rhythm, S1, S2. No murmurs, gallops or rubs. Abdomen: Abdomen is soft, nontender, obese. Bowels sounds present in all quadrants. Extremities: No clubbing, cyanosis, or edema. Peripheral pulses palpable. No calf tenderness. Neurological: Patient is awake and alert to person, place and time. Following simple commands, moving all extremities. Weight Dosing Weight: 95.5 kg (11/08/23) Dosing Weight: 95.5 kg (11/08/23) Medications Medications (17) Active Scheduled: (9) cefTRIAXone 1 g, IV Piggyback, qDay clopidogrel 75 mg Tablet 75 mg 1 tab(s), Oral, Daily dorzolamide ophthalmic 2% Solution 1 drop(s), Eyes, both, BID enoxaparin 40 mg/ 0.4mL syringe 40 mg 0.4 mL, Subcutaneous, qDay insulin glargine 100 units/ml solution 5 unit(s) 0.05 mL, Subcutaneous, qHS insulin lispro 100 units/mL Soln COA (3 mL) Give 0-5 units/dose, Subcutaneous, TIDAC isosorbide mononitrate 30 mg ER tablet 15 mg 0.5 tab(s), Oral, qAM meloxicam 7.5 mg tablet 15 mg 2 tab(s), Oral, qDay metoprolol tartrate 50 mg tablet 50 mg 1 tab(s), Oral, BID Continuous: (1) NS (0.9% nacl) 1,000 mL 1,000 mL, Intravenous, 75 mL/hr PRN: (7) acetaminophen 325 mg Tablet 650 mg 2 tab(s), Oral, q4h acetaminophen 325 mg Tablet 650 mg 2 tab(s), Oral, q4h albuterol - ipratropium 2.5 mg-0.5 mg/3 mL Inhal Gwen UD 3 mL, Inhalation, q4hRT dextrose 50% Solution Disp syringe 50 mL 12.5 gram(s) 25 mL, IV Push, AsDirected guaifenesin 100 mg/5 mL Liquid SUGAR-FREE 120 mL 200 mg 10 mL, Oral, q4h metoclopramide 5 mg/mL (2mL) vial 10 mg 2 mL, IV Push, q6h ondansetron 2 mg/ 1 mL 2 mL INJ 4 mg 2 mL, IV Push, q6h Lab Results 11/09 05:05 WBC: 3.2 L Hgb: 12.3 L Hct: 36.4 L Platelet: 79 L Neutrophil %: 51.5 Glucose Level: 109 Sodium Level: 136 Potassium Level: 3.7 BUN: 15 Creatinine Lvl (s): 0.98 11/08 05:24 WBC: 3.9 L Hgb: 13.4 L Hct: 40.4 L Platelet: 94 L Neutrophil %: 73.1 Glucose Level: 131 H Sodium Level: 138 Potassium Level: 3.9 BUN: 19 H Creatinine Lvl (s): 1.07 Imaging Results and Diagnostics CT Head or Brain w/o Contrast Result Date: November 08, 2023 Verified By: Contributor_systemTODD CLINICAL STATEMENT: IMPRESSION: 1. No acute intracranial pathology. 2. Prominent CSF spaces usually indicate volume loss/atrophy as a manifestation of mild chronic white matter ischemia. COMMENT: Changes resultant from ischemia (even significant ischemia) may often be inapparent on CT exam, particularly if imaged early. Additionally,early changes due to neoplastic or inflammatory processes can be subtle to the extent that they are not prospectively noted. Therefore, if symptoms persist, or clinical suspicion for pathology remains, further evaluation maybe obtained with MRI. XR Chest 1 View Result Date: November 08, 2023 Verified By: Contributor_TODD gaspar CLINICAL STATEMENT: IMPRESSION: Streaky airspace opacities at the right lung base, likely subsegmental atelectasis/airspace disease. Blunting of left costophrenic angle, likely trace effusion or pleural thickening or atelectasis. Preliminary Report was Dictated by a Resident I have personally reviewed all of the images of this examination and agree with the resident findings and interpretation. EKG No qualifying data available. Assessment/Plan 1. Altered mental status Acute, new onset, improved this morning. Family had stated that patient had been increasingly confused at home but unsure for how long. He states this morning that he does not remember falling at home but states his family told him that he did. Mental status has improved with treatment of pneumonia. CT of the head shows volume loss/atrophy. Will consult PT and OT to evaluate and treat. 2. Sepsis Resolved. 3. Community acquired pneumonia Acute, new onset, accompanied by fever, tachycardia and shortness of breath, improving. Continue Ceftriaxone 1 gram IV daily. Azithromycin discontinued as atypicals negative. Respiratory ID panel negative. On room air this morning, with good oxygen saturations. May use supplemental oxygen as needed to maintain oxygen saturations above 92%. Continue duoneb aerosols as needed for shortness of breath/wheezing. Fever/tachycardia has resolved. 4. COPD without exacerbation Chronic, stable. Continue duoneb aerosols as needed for shortness of breath/wheezing. 5. Type 2 diabetes mellitus Chronic, controlled. Last A1c 6.1% in 08/2023. Blood sugar checks before meals and at bedtime. Cover with corrective sliding scale insulin. ADA diet. Blood glucose goal of 180 or less and avoid hypoglycemia. Will hold oral agents for now. 6. Hypertension Chronic, controlled. Continue current antihypertensives with hold parameters. SBP goal of 140 or less. DVT prophylaxis with Lovenox sc. Code status: Full Code. Labs, diagnostic test and progress notes reviewed as noted in HPI. Plan of care discussed with patient. All questions answered. Patient verbalizes understanding and is agreeable with plan of care. This case was discussed with collaborating physician, Dr. Micah Ponce. Anticipated Date of Discharge next 24 hours Time Spent 35 minutes spent reviewing past diagnostic tests, reviewing lab results, vital sign trends, medical history, reviewing medications and ordering home medications, examining patient, discussed plan of care with care team, collaborating with physician, and documenting in chart. Digitally Signed by LEYDA KERR on 11/10/2023 10:32 AM [facility] 11-09-2023 Evaluation + Plan note Extrac david from: Title:History and Physical Author:LEYDA KERR Date:11/09/23 1. Altered mental status Acute, new onset. Family had stated that patient has been increasingly confused at home but unsure for how long.9 He also may have had a fall at home. Will treat patient for pneumonia to see if this improves. CT of the head shows volume loss/atrophy. Will consult PT and OT to evaluate and treat. 2. Sepsis Acute, new onset, likely secondary to CAP, accompanied by fever, tachycardia and altered mental status. Lactic acid 2.8 on arrival, down to 1.6 after IV fluids. 3. Community acquired pneumonia Acute, new onset, accompanied by fever, tachycardia and shortness of breath. Continue Ceftriaxone 1 gram IV daily and Azithromycin 500 mg IV daily. Check urine for legionella. Check Mycoplasma antibody. Will de-escalate antibiotics when atypicals come back negative. Check respiratory ID panel to rule out other causes of hypoxia/fever. Continue supplemental oxygen as needed to maintain oxygen saturations above 92%. Wean oxygen as able. Continue duoneb aerosols as needed for shortness of breath/wheezing. Repeat CBC and BMP in the am. 4. COPD without exacerbation Chronic, stable. Continue duoneb aerosols as needed for shortness of breath/wheezing. 5. Type 2 diabetes mellitus Chronic, controlled. Last A1c 6.1% in 08/2023. Blood sugar checks before meals and at bedtime. Cover with corrective sliding scale insulin. ADA diet. Blood glucose goal of 180 or less and avoid hypoglycemia. Will hold oral agents for now. 6. Hypertension Chronic, controlled. Continue current antihypertensives with hold parameters. SBP goal of 140 or less. DVT prophylaxis with Lovenox sc. Code status: Full Code. Labs, diagnostic test and progress notes reviewed as noted in HPI. Plan of care discussed with patient. All questions answered. Patient verbalizes understanding and is agreeable with plan of care. This case was discussed with collaborating physician, Dr. Micah Ponce. 75 minutes spent reviewing past diagnostic tests, reviewing lab results, vital sign trends, medical history, reviewing medications and ordering home medications, examining patient, discussed plan of care with care team, collaborating with physician, and documenting in chart. Future Appointments Appointment Date:01/14/2024 01:00:00 PM Scheduled Provider:SAUL FALCON DO Location:[facility] Appointment Type:PC Wellness Annual [facility] 08-10-2024 Note. MICRO - Microbiology PROCEDURE: Legionella Urine Ag [*1] SOURCE: Urine BODY SITE: COLLECTED DATE/TIME: 11/08/2023 18:31 EDT RECEIVED DATE/TIME: 11/09/2023 12:51 EDT START DATE/TIME: 11/09/2023 12:51 EDT FREE TEXT SOURCE: FINAL REPORTS Final Report [] Verified Date/Time/Personnel: 11/09/2023 13:11 EDT Presumptive negative for L. pneumophila serogroup 1 antigen in urine, suggesting no recent or current infection. Legionnaire's disease cannot be ruled out since other serogroups and species may also cause disease. Performing Locations *1: This test was performed at: [facility], [address] [place] [id number] , [facility] ([place])11-09-2023 Note Date of Service 11/09/2023 Chief Complaint c/o confusion since last night History of Present Illness Patient is a 77-year-old male, who follows with Dr. Saul Falcon with a past medical history significant for type 2 diabetes, hypertension, coronary artery disease s/p angioplasty and COPD, [facility] with the chief complaint of altered mental status. Patient is extremely hard of hearing and not able to contribute much this morning as he is still somewhat altered. He was accompanied to the ED last night by his grandson and his ex- who stated that he has been increasingly confused at home for a few days. He possibly had a fall at home the night before last. Patient does state that it was not a fall but he went down on his knees. Per report, patient appeared to be more short of breath last night than usual according to his ex- . Unableto complete review of systems due to altered mental status. In the emergency department, CT of the head revealed no acute intracranial pathology, prominent CSFspaces usually indicate volume loss/atrophy as a manifestation of mild chronic white matter ischemia. Chest x-ray revealed streaky airspace opacities at the right lung base, likely subsegmental atelec tasis/airspace disease, blunting of left costophrenic angle, likely trace effusion or pleural thickening or atelectasis. EKG revealed sinus tachycardia, left axis deviation. CBC remarkable for platelet count 111. CMP significant for glucose 198, BUN 20 and AST 102. Troponin negative. BNP 1411. COVID-19, RSV and Flu A and B negative. Urinalysis significant for small bilirubin, trace ketones, moderate blood and urine RBC 0-5. Patient was administered 3 L of NS, 650 mg Tylenol PO, 2 grams ceftriaxone IV and 500 mg azithromycin IV in the ED. The case was discussed with the shift leader [employer] CR[employer] O[employer] who agreed to admit patient for further evaluation and treatment of pneumonia with fever, tachycardia, and al tered mental status. Patient was transferred to medical surgical unit. We will continue ceftriaxone1 gram IV and azithromycin 500 mg IV daily. We will check urine for legionella. We will check mycoplasma antibody. We will de-escalate antibiotics as able. Check full respiratory panel. Continue Tylenol as needed for fever/pain. Continue supplemental oxygen as needed to maintain oxygen saturations above 92%. Wean as able. Continue duoneb aerosols as needed and scheduled. We will consult PT and Nicolas evaluate and treat. Repeat CBC and BMP in the am. Patient seen and evaluated this morning while resting in bed. He is extremely hard of hearing and does not offer much additional information. He has been weaned to room air this morning with good oxygen saturations. Patient is drowsy and not answering questions appropriately this morning. Discussedplan of care with patient and he was agreeable. Review of Systems Review of Systems: Reviewed in detail, including general health, HEENT, cardiovascular, respiratory, gastrointestinal, genitourinary, endocrine, musculoskeletal, neurologic, vascular, skin, and psychiatric. All are negative except for those listed in the History of Present Illness. Physical Exam Vitals and Measurements T: 36.8 C (Oral) TMIN: 36.8 C (Oral) TMAX: 38.8 C (Oral) HR: 75 (Apical) RR: 18 BP: 131/96 SpO2: 95% HT: 188 cm WT: 95.5 kg BMI: 27.02 Weight Dosing Weight: 95.5 kg (11/08/23) Dosing Weight: 95.5 kg (11/08/23) Physical Exam General: No acute distress. Patient is drowsy, chronically ill-appearing. Skin: No rash. Skin is warm, dry and intact. HEENT: Head is normocephalic, atraumatic. Pupils are equal, round and reactive. Neck: Supple. No lymphadenopathy, thyromegaly. Lungs: Bilaterally clear but diminished without crepitation or wheeze. Unlabored. Heart: Heart is regular rhythm, S1, S2. No murmurs, gallops or rubs. Abdomen: Abdomen is soft, nontender, obese. Bowels sounds present in all quadrants. Extremities: No clubbing, cyanosis, or edema. Peripheral pulses palpable. No calf tenderness. Neurological: Patient is drowsy, unable to assess orientation. Following simple commands, moving all extremities. Lab Results 11/08 05:24 WBC: 3.9 L Hgb: 13.4 L Hct: 40.4 L Platelet: 94 L Neutrophil %: 73.1 Glucose Level: 131 H Sodium Level: 138 Potassium Level: 3.9 BUN: 19 H Creatinine Lvl (s): 1.07 11/07 18:31 WBC: 5.7 Hgb: 15.0 Hct: 45.6 Platelet: 111 L Neutrophil %: 76.2 Protime: 12.2 PT International Ratio: 1.1 Glucose Level: 198 H Sodium Level: 136 Potassium Level: 4.3 BUN: 20 H Creatinine Lvl (s): 1.18 Imaging Results and Diagnostics CT Head or Brain w/o Contrast Result Date: November 08, 2023 Verified By: Contributor_systemTODD CLINICAL STATEMENT: IMPRESSION: 1. No acute intracranial pathology. 2. Prominent CSF spaces usually indicate volume loss/atrophy as a manifestation of mild chronic white matter ischemia. COMMENT: Changes resultant from ischemia (even significant ischemia) may often be inapparent on CT exam, particularly if imaged early. Additionally,early changes due to neoplastic or inflammatory processes can be subtle to the extent that they are not prospectively noted. Therefore, if symptoms persist, or clinical suspicion for pathology remains, further evaluation maybe obtained with MRI. XR Chest 1 View Result Date: November 08, 2023 Verified By: Contributor_systemTODD CLINICAL STATEMENT: IMPRESSION: Streaky airspace opacities at the right lung base, likely subsegmental atelectasis/airspace disease. Blunting of left costophrenic angle, likely trace effusion or pleural thickening or atelectasis. Preliminary Report was Dictated by a Resident I have personally reviewed all ofthe images of this examination and agree with the resident findings and interpretation. Assessment/Plan 1. Altered mental status Acute, new onset. Family had stated that patient has been increasingly confused at home but unsure for how long.9 He also may have had a fall at home. Will treat patient for pneumonia to see if this improves. CT of the head shows volume loss/atrophy. Will consult PT and OT to evaluate and treat. 2. Sepsis Acute, new onset, likely secondary to CAP, accompanied by fever, tachycardia and altered mental status. Lactic acid 2.8 on arrival, down to 1.6 after IV fluids. 3. Community acquired pneumonia Acute, new onset, accompanied by fever, tachycardia and shortness of breath. Continue Ceftriaxone 1gram IV daily and Azithromycin 500 mg IV daily. Check urine for legionella. Check Mycoplasma antibody. Will de-escalate antibiotics when atypicals come back negative. Check respiratory ID panel to rule out other causes of hypoxia/fever. Continue supplemental oxygen as needed to maintain oxygen saturations above 92%. Wean oxygen as able. Continue duoneb aerosols as needed for shortness of breath/wheezing. Repeat CBC and BMP in the am. 4. COPD without exacerbation Chronic, stable. Continue duoneb aerosols as needed for shortness of breath/wheezing. 5. Type 2 diabetes mellitus Chronic, controlled. Last A1c 6.1% in 08/2023. Blood sugar checks before meals and at bedtime. Coverwith corrective sliding scale insulin. ADA diet. Blood glucose goal of 180 or less and avoid hypoglycemia. Will hold oral agents for now. 6. Hypertension Chronic, controlled. Continue current antihypertensives with hold parameters. SBP goal of 140 or less. DVT prophylaxis with Lovenox sc. Code status: Full Code. Labs, diagnostic test and progress notes reviewed as noted in HPI. Plan of care discussed with patient. All questions answered. Patient verbalizes understanding and is agreeable with plan of care. This case was discussed with collaborating physician, Dr. Micah Ponce. 75 minutes spent reviewing past diagnostic tests, reviewing lab results, vital sign trends, medicalhistory, reviewing medications and ordering home medications, examining patient, discussed plan of care with care team, collaborating with physician, and documenting in chart. Problem List/Past Medical History Ongoing Angina pectoris Aortic valve disease Bereavement CAD (coronary artery disease) COPD without exacerbation Glaucoma Hypertension Influenza vaccine refused Medicare annual wellness visit, subsequent Need for hepatitis C screening test Osteoarthritis Type 2 diabetes mellitus Procedure/Surgical History History of cardiac catheterization History of vasectomy Balloon angioplasty of coronary artery Medications Home Medications (15) Active Anoro Ellipta 62.5 mcg-25 mcg/inh inhalation powder 1 puff(s), Inhalation, qDay atorvastatin 80 mg oral tablet 80 mg = 1 tab(s), Oral, qDay bumetanide 1 mg oral tablet clopidogrel 75 mg oral tablet 75 mg = 1 tab(s), Oral, Daily DME MISCellaneous See Instructions DME MISCellaneous See Instructions dorzolamide 2% ophthalmic solution glipiZIDE 5 mg oral tablet 1 tab(s), Oral, qDay isosorbide mononitrate 30 mg oral tablet, extended release Klor-Con M20 oral tablet, extended release 20 mEq = 1 tab(s), Oral, qDay meloxicam 15 mg oral tablet 1 tab(s), Oral, qDay Metoprolol Tartrate 50 mg oral tablet 50 mg = 1 tab(s), Oral, BID ONE TOUCH ULTRA BLUE TEST STRP See Instructions ONETOUCH ULTRA TEST STRIP See Instructions Rhopressa 0.02% ophthalmic solution 1 drop(s), Eyes, both, BID Allergies contrast media (iodine-based) unknown Social History Alcohol Nutrition/Health Caffeine intake amount: occasional., 04/03/2019 Tobacco Tobacco Use: Former smoker, quit more than 30 days ago., 06/27/2018 Family History HTN - Hypertension: Mother. Heart disease: Mother and Father. Health Status Family Member(s) Immunizations SARS-CoV-2 (COVID-19) mRNA-1273 vaccine: 0.5 unknown unit (03/21/21) SARS-CoV-2 (COVID-19) mRNA-1273 vaccine: 0.5 unknown unit (08/13/20) SARS-CoV-2 (COVID-19) mRNA-1273 vaccine: 0.5 unknown unit (07/16/20) tetanus/diphth/pertuss (Tdap) adult/adol: 0 unknown unit (07/05/11) Code Status Code Status - Ordered -- 11/08/23 21:17:00 EDT, Full Code, Constant Order Digitally Signed by LEYDA KERR on 11/09/2023 10:03 AM [facility]08-09-2024 Note ORIGINAL EXAMINATION: CT OF THE HEAD WITHOUT CONTRAST11/08/2023 7:[address] HEAD/BRAIN WITHOUT CONTRAST EXAM DESCRIPTION: TECHNIQUE: CT of the head was performed without the administration of intravenous contrast. Automated exposure control, iterative reconstruction, and/or weight based adjustment of the mA/kV was utilized to reduce the radiation dose to as low as reasonably achievable. COMPARISON: None available HISTORY: ORDERING SYSTEM PROVIDED HISTORY: Reason for Exam: headache; altered LOC; suspect abscess FINDINGS: There is no evidence of mass, midline shift, hemorrhage, or infarct. Although the brain morphology appears normal, the ventricles, cortical sulci, and subarachnoid cisterns appear prominent. There are no extra-axial fluid collections. No regions of pathologic attenuation are evident. Decreased density periventricular white matter. Regions of the orbits and paranasal sinuses included within the field of view are unremarkable. There is no displaced fracture or osseous neoplasm. The extracalvarial soft tissues appear unremarkable. IMPRESSION: 1. No acute intracranial pathology. 2. Prominent CSF spaces usually indicate volume loss/atrophy as a manifestation of mild chronic white matter ischemia. COMMENT: Changes resultant from ischemia (even significant ischemia) may often be inapparent on CT exam, particularly if imaged early. Additionally, early changes due to neoplastic or inflammatory processes can be subtle to the extent that they are not prospectively noted. Therefore, if symptoms persist, or clinical suspicion for pathology remains, further evaluation may be obtained with MRI. Interpreted by: Caesar Manning MD Preliminary Report By: Caesar Manning MD Electronically signed By Caesar Mnaning MD Dictated Date: 11/08/2023 7:30:56 PM Prelim Date: 11/08/2023 7:31:39 PM Sign Date: 11/08/2023 7:31:39 PM Ordering Provider: [facility]08-09-2024 Note ORIGINAL EXAMINATION: ONE XRAY VIEW OF THE CHEST 11/08/2023 7:07 pm COMPARISON: None. HISTORY: ORDERING SYSTEM PROVIDED HISTORY: Reason for Exam: fever, pain or tachypnea FINDINGS: Normal cardiomediastinal silhouette. No focal consolidation. Streaky airspace opacities at the right lung base. Right costophrenic angle is sharp. Blunting of left costophrenic angle, likely trace effusion or pleural thickening or atelectasis. No pneumothorax. No acute osseous findings. IMPRESSION: Streaky airspace opacities at the right lung base, likely subsegmental atelectasis/airspace disease. Blunting of left costophrenic angle, likely trace effusion or pleural thickening or atelectasis. Preliminary Report was Dictated by a Resident I have personally reviewed all of the images of this examination and agree with the resident findings and interpretation. Interpreted by: Caesar Manning MD Preliminary Report By: Guillermo Allen Electronically signed By Caesar Manning MD Dictated Date: 11/08/2023 7:32:49 PM Prelim Date: 11/08/2023 7:36:22 PM Sign Date: 11/08/2023 10:05:06 PM Ordering Provider: [facility]08-09-2024 HCoV 229E RNA JEANNETTE+non-probe Ql (Nph)Not Detected *NA* (11/08/23 6:31 PM)AH Auto Viro/Sero [id number] NoteSinus tachycardia Left axis deviation Electronic Signature: NIURKA BUTLER DO 11/08/2023 18:27:32[facility] 11-30-2023 NoteHNO ID: [id number] Author: Mariia Miranda RT(R) Service: ? Author Type: Printed Circuit Designer Type: Progress Notes Filed: 02/28/2023 1:55 PM Note Text: Radiology Service Progress Note PATIENT NAME: Reny Santos DATE OF SERVICE: February 28, 2023 TIME: 1:41 PM PATIENT IDENTITY VERIFICATION COMPLETED USING TWO (2) IDENTIFIERS: Name and Date of confirmed by patient verbally. FALL SCREENING: Has the patient had 2 falls in the last year or 1 fall with injury or currently using an Ambulatory Assistive Device (Walker, Cane, Wheelchair, Crutches, etc.)? No PATIENT GENDER DATA: Male PATIENT RELEVANT IMPLANT DATA REVIEWED: Yes RADIOLOGY DEPARTMENT: General X-ray: Exam(s) Completed: Chest X-Ray PERIPHERAL IV DATA: Not applicable SIGNED BY: RT Jun(R) February 28, 2023 1:41 [facility]11-30-2023 NoteHNO ID: [id number] Author: Samuel Heath MD Service: ? Author Type: Physician Type: Progress Notes Filed: 02/28/2023 3:17 PM Note Text: Patient presents with: Cough: Congestion, runny nose, sob, wheezing, drainage x 1 month HPI: Feeling sick for 1 month. [place] a little better last week but worsened again. Home COVID test negative a couple weeks ago. Positive symptoms: Cough, Shortness of breath, Wheezing, Nasal Congestion, Rhinorrhea, sneezing Negative symptoms: Chest pain, Fever, Vomiting, Diarrhea, OTC: vicks, cough syrup, nasal spray New patient to [facility], he is not completely sure what medicines he is taking or his health conditions - reports he has a stent and bypass. Meds were pulled from outside sources. He has had a heart stent and bypass. Remote history of smoking, no history of asthma. PAST MEDICAL HISTORY Diagnosis Date CAD (coronary artery disease) COPD (chronic obstructive pulmonary disease) (HCC) Diabetes mellitus type 2 (HCC) MEDICATIONS: Current Outpatient Medications Medication Sig atorvastatin (LIPITOR) 80 mg tablet Take 80 mg by mouth daily at bedtime. bumetanide (BUMEX) 1 mg tablet Take 1 tablet by mouth every afternoon. clopidogrel (PLAVIX) 75 mg tablet Take 1 tablet by mouth every afternoon. dorzolamide (TRUSOPT) 2 % ophthalmic solution glipiZIDE (GLUCOTROL) 5 mg tablet Take 1 tablet by mouth every afternoon. isosorbide mononitrate ER (IMDUR) 30 mg 24 hr tablet Take 0.5 tablets by mouth every afternoon. meloxicam (MOBIC) 15 mg tablet Take 1 tablet by mouth every afternoon. metoprolol tartrate, short acting, (LOPRESSOR) 50 mg tablet Take 1 tablet by mouth every 12 hours. RHOPRESSA 0.02 % ophthalmic drops potassium chloride ER (KLOR-CON) 20 mEq tablet Take 1 tablet by mouth every afternoon. ANORO ELLIPTA 62.5-25 mcg/actuation inhaler No current facility-administered medications for this visit. ALLERGIES: ALLERGIES Allergen Reactions Latanoprost Other: See Comments Causes pain to eyes VITALS: BP 102/64 Pulse 88 Temp 37.7 ?C (99.8 ?F) Resp 21 Wt 95.6 kg (210 lb 12.8 oz) SpO2 92% PHYSICAL EXAM: GEN: Pleasant, in no acute distress. Accompanied by his grandson. HEENT: PERRL, EOMI, conjunctiva clear Ears: hearing aids removed. canals occluded by cerumen. Sinuses: non-tender frontal sinus, non-tender maxillary sinuses Throat: moist mucous membranes, mild erythema, no exudate Neck: supple, no thyromegaly, no lymphadenopathy HEART: regular rate and rhythm, no murmurs LUNGS: clear to auscultation, diminished in the bases, no increased WOB ASSESSMENT/PLAN: 1. Subacute cough - ICD9: 786.2, ICD10: R05.2 (primary diagnosis) 2. Acute non-recurrent sinusitis, unspecified location - ICD9: 461.9, ICD10: J01.90 - XR CHEST 2V FRONTAL/LAT -no infiltrate or vascular congestion. Cover for secondary bacterial sinusitis and COPD exacerbation with - DOXYCYCLINE MONOHYDRATE 100 MG CAPSULE Follow-up with primary care if not improving. Samuel Heath [facility]11-30-2023 History of Present illness Narrative* Samuel Heath MD - 02/28/2023 1:22 PM EST Patient presents with: Cough: Congestion, runny nose, sob, wheezing, drainage x 1 month HPI: Feeling sick for 1 month. [place] a little better last week but worsened again. Home COVID test negative a couple weeks ago. Positive symptoms: Cough, Shortness of breath, Wheezing, Nasal Congestion, Rhinorrhea, sneezing Negative symptoms: Chest pain, Fever, Vomiting, Diarrhea, OTC: vicks, cough syrup, nasal spray New patient to [facility], he is not completely sure what medicines he is taking or his health conditions - reports he has a stent and bypass. Meds were pulled from outside sources. He has had a heart stentand bypass. Remote history of smoking, no history of asthma. PAST MEDICAL HISTORY Diagnosis Date CAD (coronary artery disease) COPD (chronic obstructive pulmonary disease) ([facility]) Diabetes mellitus type 2 ([facility]) MEDICATIONS: Current Outpatient Medications Medication Sig atorvastatin (LIPITOR) 80 mg tablet Take 80 mg by mouth daily at bedtime. bumetanide (BUMEX) 1 mg tablet Take 1 tablet by mouth every afternoon. clopidogrel (PLAVIX) 75 mg tablet Take 1 tablet by mouth every afternoon. dorzolamide (TRUSOPT) 2 % ophthalmic solution glipiZIDE (GLUCOTROL) 5 mg tablet Take 1 tablet by mouth every afternoon. isosorbide mononitrate ER (IMDUR) 30 mg 24 hr tablet Take 0.5 tablets by mouth every afternoon. meloxicam (MOBIC) 15 mg tablet Take 1 tablet by mouth every afternoon. metoprolol tartrate, short acting, (LOPRESSOR) 50 mg tablet Take 1 tablet by mouth every 12 hours. RHOPRESSA 0.02 % ophthalmic drops potassium chloride ER (KLOR-CON) 20 mEq tablet Take 1 tablet by mouth every afternoon. ANORO ELLIPTA 62.5-25 mcg/actuation inhaler No current facility-administered medications for this visit. ALLERGIES: ALLERGIES Allergen Reactions Latanoprost Other: See Comments Causes pain to eyes VITALS: BP 102/64 Pulse 88 Temp 37.7 C (99.8 F) Resp 21 Wt 95.6 kg (210 lb 12.8 oz) SpO2 92% PHYSICAL EXAM: GEN: Pleasant, in no acute distress. Accompanied by his grandson. HEENT: PERRL, EOMI, conjunctiva clear Ears: hearing aids removed. canals occluded by cerumen. Sinuses: non-tender frontal sinus, non-tender maxillary sinuses Throat: moist mucous membranes, mild erythema, no exudate Neck: supple, no thyromegaly, no lymphadenopathy HEART: regular rate and rhythm, no murmurs LUNGS: clear to auscultation, diminished in the bases, no increased WOB ASSESSMENT/PLAN: 1. Subacute cough - ICD9: 786.2, ICD10: R05.2 (primary diagnosis) 2. Acute non-recurrent sinusitis, unspecified location - ICD9: 461.9, ICD10: J01.90 - XR CHEST 2V FRONTAL/LAT -no infiltrate or vascular congestion. Cover for secondary bacterial sinusitis and COPD exacerbation with - DOXYCYCLINE MONOHYDRATE 100 MGCAPSULE Follow-up with primary care if not improving. Samuel Heath [facility] Diagnosis Subacute cough- Primary Cough Acute non-recurrent sinusitis, unspecified location [facility]* Diagnosis Subacute cough Cough [facility] N[facility] No data available for this section [facility] Summary Purpose Family History No Family History Records Found No data available for this section No Family History Records FoundNo Family History Records FoundNo Family History Records Found Advance Directives No Advanced Directives Records FoundNo Advanced Directives Records FoundNo Advanced Directives Records FoundNo Advanced Directives Records Found Additional Source Comments Source Comments (unrecognize d section and content) In the event this informatio n is protected by the Federal Confidentiality of Alcohol and Drug Abuse Patient Records regulations: The Federal rules restrict any use of the information to criminally investigate or prosecute any alcohol or drug abuse patient.[facility] the event this information is protected by the Federal Confidentiality of Alcohol and Drug Abuse Patient Records regulations: The Federal rules restrict any use of the information to criminally investigate or prosecute any alcohol or drug abuse patient.[facility] Reason for Visit (unrecogniz ed section and content) Reason Comments Cough Congestion, runny no se, sob, wheezing, drainage x 1 month (unrecognized sect ion and content) No Status Records FoundNo Status Records FoundNo Status Records FoundNo Status Records Found INFORMATION SOURCE (unrecogn ized section and content) DATE CREATED AUTHOR 03/03/2023 [facility] DATE CREATED AUTHOR AUTHOR'S ORGANIZ ATION 11/21/2023 [facility] [place] DATE CREATED AUTHOR AUTHOR'S ORGANIZ ATION 01/09/2024 [facility] DATE CREATED AUTHOR AUTHOR'S ORGANIZ ATION 01/19/2024 [facility] Patient Care team informatio n (unrecognized section and content) Care Team Personnel Name: SAUL FALCON DO Position: P4 Physician - Primary Care Member Role: Primary Care Physician Address: Address: [address] [place] [address] [place] [address]- [place] Care Team Related Persons Name: ARIADNA BARRON FOR RECORDS PERTAINING TO PATIENTS WHO ARE OR HAVE BEEN ENROLLED IN A CHEMICAL DEPENDENCY/SUBSTANCEABUSE PROGRAM, SOME INFORMATION MAY BE OMITTED. This clinical summary was aggregated from multiple sources. Caution should be exercised in using it in the provision of clinical care. This summary normalizes information from multiple sources, and as a consequence, information in this document may materially change the coding, format and clinical context of patient data. In addition, data may be omitted in some cases. CLINICAL DECISIONS SHOULD BE BASED ON THE PRIMARY CLINICAL RECORDS. [facility]. provides no warranty or guarantee of the accuracy or completeness of information in this document.
== END | disposition home or self-care (01) ==
LOC: LAB 14:33
PROVIDERS: PCP Family Medicine; Referring Provider Urology; Visit Provider Urology
DX: C61 Malignant neoplasm of prostate (principal)
CPT/HCPCS: 36415; 84153

== ENCOUNTER → 2024-08-25 | Outpatient (CLI) | payer MEDICARE, SELFPAY ==
--- NOTE | 2024-08-25 12:40 | ECHOCS_ITS ---
Reason For Study Reason For Study: Murmur Procedure This was a 2D Doppler, Color Flow transthoracic echocardiogram. The study was technically difficult. Contrast injection was performed. Exam performed in department. Left Ventricle Normal LV size. Mild concentric left ventricular hypertrophy. The LV systolic function is normal. EF is 65 %. Stage 1 diastolic dysfunction. Right Ventricle Normal right ventricle. Atria The left and right atria are normal. Mitral Valve Mild mitral annular calcification. Trivial mitral valve insufficiency. Tricuspid Valve Trivial tricuspid valve insufficiency. Unable to estimate RV systolic pressure due to insufficient tricuspid regurgitant envelope. Aortic Valve Moderately calcified aortic valve. Moderate aortic valve stenosis with mean peak gradient of 21 mmHg. Trivial aortic valve regurgitation. Pulmonic Valve The pulmonic valve is not well visualized. Great Vessels Mildly dilated aortic root. Pericardium/Pleural No pericardial effusion. Medication 22 gauge I.V. with prn adaptor inserted into right arm. Diluted definity 2.5ml given slow IV push to enhance endocardial definition. MMode/2D Measurements & Calculations LVIDd: 4.1 cm IVSd: 1.2 cm LVOT diam: 2.2 cm LVIDs: 2.7 cm LVPWd: 1.2 cm RVDd: 3.7 cm FS: 35.1 % LVOT area: 3.7 cm2 Ao root diam: 3.9 cm LAV(MOD-bp): 27.5 ml LVAd ap4: 30.9 cm2 ACS: 0.65 cm LAV(MOD-bp) Indexed: 13.2 ml/m2 LVLd ap4: 8.1 cm LAV(MOD-sp2): 31.1 ml EDV(MOD-sp4): 96.7 ml LAV(MOD-sp4): 23.8 ml EDV(sp4-el): 100.5 ml LVAs ap4: 19.5 cm2 LVLs ap4: 6.8 cm ESV(MOD-sp4): 45.3 ml ESV(sp4-el): 47.4 ml EF(MOD-sp4): 53.1 % EF(sp4-el): 52.8 % SV(MOD-sp4): 51.4 ml SV(sp4-el): 53.1 ml LA A4 area: 11.7 cm2 SI(MOD-sp4): 24.7 ml/m2 LA dimension(2D): 3.3 cm RA A4 area: 10.0 cm2 TAPSE: 1.5 cm Time Measurements MV dec time: 0.38 sec Doppler Measurements & Calculations MV E max clyde: 36.1 cm/sec Lat Peak E' Clyde: 7.5 cm/sec Med Peak E' Clyde: 4.9 cm/sec MV A max clyde: 62.6 cm/sec E/E' lat: 4.8 E/E' med: 7.3 MV E/A: 0.58 MV V2 max: 70.5 cm/sec MV P1/2t max clyde: 38.1 cm/sec Ao V2 max: 314.6 cm/sec MV max P.0 mmHg MV P1/2t: 127.4 msec Ao max P.6 mmHg MV V2 mean: 30.2 cm/sec MV dec slope: 87.5 cm/sec2 Ao V2 mean: 208.6 cm/sec MV mean P.45 mmHg MVA(P1/2t): 1.7 cm2 Ao mean P.5 mmHg MV V2 VTI: 17.8 cm Ao V2 VTI: 67.9 cm MVA(VTI): 3.8 cm2 AV (velocity ratio): 0.27 YANI(I,D): 1.0 cm2 YANI(V,D): 1.1 cm2 LV V1 max: 90.9 cm/sec SV(LVOT): 68.1 ml LV V1 max P.3 mmHg LV V1 mean P.7 mmHg LV V1 mean: 60.4 cm/sec LV V1 VTI: 18.6 cm ECHO/Echo Complete W/ Contrast Interpretation Summary Mild concentric left ventricular hypertrophy. The LV systolic function is normal. EF is 65 %. Stage 1 diastolic dysfunction. Moderately calcified aortic valve. Moderate aortic valve stenosis with mean pea k gradient of 21 mmHg. Trivial aortic valve regurgitation. Mildly dilated aortic root. The study was technically difficult. Ordering Physician: Bonita Morgan Referring Physician: Bonita Morgan Performed By: Abram Tesfaye RCS
== END | disposition home or self-care (01) ==
LOC: CVS 12:39
PROVIDERS: PCP Family Medicine; Referring Provider Physician Assistant Medical; Visit Provider Physician Assistant Medical
DX: I35.0 Nonrheumatic aortic (valve) stenosis (principal)
CPT/HCPCS: 93306; Q9957; A4216; C8929

== ENCOUNTER → 2025-01-28 | Outpatient (CLI) | payer MEDICARE, SELFPAY ==
[2025-01-28 15:39] LABS: PSA,Total- Diagnostic 2.13 ng/mL (0.00-4.00)
== END | disposition home or self-care (01) ==
LOC: LAB 13:58
PROVIDERS: PCP Family Medicine; Referring Provider Urology; Visit Provider Urology
DX: C61 Malignant neoplasm of prostate (principal)
CPT/HCPCS: 36415; 84153